=== PATIENT | female | born 1950 | race American Indian/Alaskan Native ===

== ENCOUNTER 2018-08-29 07:09 | Inpatient (IN) | payer MEDICARE ==
[2018-08-29] MEDS ORDERED: DUONEB *Not for PRN Use IH ONE ×2 (07:15→07:24)
[2018-08-29] MEDS ORDERED: NACL 0.9% 1000 ML 1,000 ML IV ONE (07:19)
--- NOTE | 2018-08-29 07:19 | Emergency Department Report ---
ED General Adult HPI - General Chief complaint: Dyspnea/Respdistress Stated complaint: MADONNA Time Seen by Provider: 08/29/18 07:15 Source: patient, EMS Mode of arrival: Stretcher Limitations: No Limitations - History of Present Illness Initial comments: 68-year-old female with history of hypercapnic respiratory failure, COPD, diabetes, tobacco dependency. She presents with prehospital CPAP in place. She has a limited ability to provide any history. As far as I can tell at this point her exacerbation started last night. She was given 2 albuterol treatments apices 10 mg) in route as well as magnesium and Solu-Medrol. She was placed on a prehospital CPAP device. She arrives with improved respiratory status but persistent wheezing. She points to her chest stating that she has had some chest difficulty. It does appear that her principle problem is her exacerbation of COPD. She initially states that she is not well inclined to be admitted to the hospital. Likely she has persistent tobacco use. She is oxygen dependent at home and uses home. 2018 she was admitted with the following discharge summary: 67 y/o AAF Whose primary care doctor is dr. Pollard. She had a history of 12 Years of COPD come on now oxygen dependence at all times. The patient noted that she had trouble filling the prescriptions for long-acting beta anais and inhaled steroid is given to her by her PCP come outside Insurance did not cover it. She was admitted for COPD exacerbation, she was medically treated with nebs, steroids, antibiotics, she improves. And she's being discharged on COPD maintenance medications that are on her formulary for her insurance.She was counseled on Tobacco cessation prior to discharge Past History Past Medical History: diabetes, GERD, hypertension, hyperlipidemia Diagnosis COPD exacerbation acute on chronic hypoxic respiratory failure Hypertension tobacco dependence and abuse type 2 diabetes GERD -: Gradual Location: chest Radiation: non-radiation (points to substernal area) Quality: other (cannot Describe) Consistency: intermittent Improves with: none Worsens with: none Associated Symptoms: denies other symptoms - Related Data Home Medications Medication Instructions Recorded Confirmed Last Taken Amlodipine Besylate [Norvasc] 10 mg PO QDAY 08/24/17 08/29/18 08/29/18 Famotidine [Pepcid] 20 mg PO BID 08/24/17 08/29/18 08/29/18 ALBUTEROL Inhaler(NF) [VENTOLIN 2 puff IH QID 08/29/18 08/29/18 08/29/18 Inhaler(NF)] ALBUTEROL NEB's [Proventil] 2.5 mg IH QID PRN 08/29/18 08/29/18 08/29/18 Ipratropium [Atrovent] 0.5 mg IH Q6HR 08/29/18 08/29/18 08/29/18 Irbesartan 150 mg PO DAILY 08/29/18 08/29/18 08/28/18 Potassium Chloride [Klor-Con M20] 20 meq PO 3XW 08/29/18 08/29/18 08/28/18 metFORMIN [Glucophage] 2 tab PO BID 08/29/18 08/29/18 08/28/18 Previous Rx's Medication Instructions Recorded Last Taken Type Furosemide [Lasix TAB] 40 mg PO QDAY #30 tablet 11/29/17 08/29/18 Rx Allergies Allergy/AdvReac Type Severity Reaction Status Date / Time No Known Allergies Allergy Unverified 10/29/14 10:06 ED Review of Systems ROS: Stated complaint: MADONNA Other details as noted in HPI Comment: Unobtainable due to pts medical conditions (limited history due to respiratory difficulty) ED Past Medical Hx - Past Medical History Previous Medical History?: Yes Hx Hypertension: Yes Hx Diabetes: Yes Hx COPD: Yes - Surgical History Past Surgical History?: Yes Additional Surgical History: hysterectomy - Social History Smoking Status: Never Smoker Substance Use Type: None - Medications Home Medications: Home Medications Medication Instructions Recorded Confirmed Last Taken Type Amlodipine Besylate [Norvasc] 10 mg PO QDAY 08/24/17 08/29/18 08/29/18 History Famotidine [Pepcid] 20 mg PO BID 08/24/17 08/29/18 08/29/18 History Furosemide [Lasix TAB] 40 mg PO QDAY #30 tablet 11/29/17 08/29/18 08/29/18 Rx ALBUTEROL Inhaler(NF) [VENTOLIN 2 puff IH QID 08/29/18 08/29/18 08/29/18 History Inhaler(NF)] ALBUTEROL NEB's [Proventil] 2.5 mg IH QID PRN 08/29/18 08/29/18 08/29/18 History Ipratropium [Atrovent] 0.5 mg IH Q6HR 08/29/18 08/29/18 08/29/18 History Irbesartan 150 mg PO DAILY 08/29/18 08/29/18 08/28/18 History Potassium Chloride [Klor-Con M20] 20 meq PO 3XW 08/29/18 08/29/18 08/28/18 History metFORMIN [Glucophage] 2 tab PO BID 08/29/18 08/29/18 08/28/18 History ED Physical Exam - General Limitations: Physical Limitation General appearance: alert, other (mild labored respirations) - Head Head exam: Present: atraumatic, normocephalic - Eye Eye exam: Present: normal appearance. Absent: scleral icterus - ENT ENT exam: Present: mucous membranes moist - Neck Neck exam: Present: normal inspection. Absent: tenderness, meningismus - Respiratory Respiratory exam: Present: wheezes, decreased breath sounds (distant breath sounds with wheezes present). Absent: respiratory distress, accessory muscle use - Cardiovascular Cardiovascular Exam: Present: regular rate, normal rhythm. Absent: systolic murmur, diastolic murmur, rubs, gallop - GI/Abdominal GI/Abdominal exam: Present: soft, normal bowel sounds. Absent: distended, tenderness, guarding, rebound, rigid - Extremities Exam Extremities exam: Present: normal inspection, full ROM, normal capillary refill. Absent: tenderness, pedal edema, calf tenderness - Back Exam Back exam: Present: normal inspection - Neurological Exam Neurological exam: Present: alert, oriented X3, CN II-XII intact. Absent: motor sensory deficit - Psychiatric Psychiatric exam: Present: normal affect, normal mood - Skin Skin exam: Present: warm, dry, intact, normal color. Absent: rash ED Course Vital Signs 08/29/18 08/29/18 08/29/18 07:10 07:38 08:15 Temperature 98.2 F Pulse Rate 103 H 90 Respiratory 22 22 19 Rate Blood Pressure 162/68 Blood Pressure 132/63 [Right] O2 Sat by Pulse 92 98 96 Oximetry 08/29/18 09:18 Temperature Pulse Rate 79 Respiratory 20 Rate Blood Pressure Blood Pressure 131/61 [Right] O2 Sat by Pulse 99 Oximetry - Reevaluation(s) Reevaluation #1: The patient is doing well on nebulized therapy with BiPAP. She states that she is not on a CPAP device at night. We'll see how she progresses and check an arterial blood gas. 08/29/18 07:39 Reevaluation #2: Respiratory status improved. BiPAP was not required. Blood gas showed slightly elevated CO2 and slightly low pH. The patient would be hypoxic without supplemental oxygen PO2 is in the 70s. I believe she will need nocturnal CPAP. She states she is fine without the BiPAP during her first neb. 08/29/18 10:02 ED Medical Decision Making - Lab Data Result diagrams: 08/29/18 07:15 08/29/18 07:15 Laboratory Results - last 24 hr 08/29/18 08/29/18 08/29/18 07:15 07:15 07:15 WBC 6.8 RBC 4.91 Hgb 12.4 Hct 38.0 MCV 77 L MCH 25 L MCHC 33 RDW 18.1 H Plt Count 211 Lymph % (Auto) 31.6 [place] % (Auto) 11.2 H Eos % (Auto) 6.2 H Baso % (Auto) 0.5 Lymph # 2.1 [place] # 0.8 Eos # 0.4 Baso # 0.0 Seg Neutrophils % 50.5 Seg Neutrophils # 3.4 PT 12.2 INR 0.86 L APTT 29.7 D-Dimer 171.29 POC ABG pH POC ABG pCO2 POC ABG pO2 POC ABG HCO3 POC ABG Total CO2 POC ABG O2 Sat POC ABG Base Excess FiO2 Sodium 141 Potassium 4.1 Chloride 100.8 Carbon Dioxide 24 Anion Gap 20 BUN 21 H Creatinine 0.7 Estimated GFR > 60 BUN/Creatinine Ratio 30 Glucose 125 H Calcium 9.4 Magnesium 2.90 H Total Bilirubin Direct Bilirubin Indirect Bilirubin AST ALT Alkaline Phosphatase Total Creatine Kinase CK-MB (CK-2) CK-MB (CK-2) Rel Index Troponin T NT-Pro-B Natriuret Pep Total Protein Albumin Albumin/Globulin Ratio Urine Color Urine Turbidity Urine pH Ur Specific [place] Urine Protein Urine Glucose (UA) Urine Ketones Urine Blood Urine Nitrite Urine Bilirubin Urine Urobilinogen Ur Leukocyte Esterase Urine WBC (Auto) Urine RBC (Auto) U Epithel Cells (Auto) Hyaline Casts Urine Opiates Screen Urine Methadone Screen Ur Barbiturates Screen Ur Phencyclidine Scrn Ur Amphetamines Screen U Benzodiazepines Scrn Urine Cocaine Screen U Marijuana (THC) Screen Drugs of Abuse Note 08/29/18 08/29/18 08/29/18 07:15 07:51 07:51 WBC RBC Hgb Hct MCV MCH MCHC RDW Plt Count Lymph % (Auto) [place] % (Auto) Eos % (Auto) Baso % (Auto) Lymph # [place] # Eos # Baso # Seg Neutrophils % Seg Neutrophils # PT INR APTT D-Dimer POC ABG pH POC ABG pCO2 POC ABG pO2 POC ABG HCO3 POC ABG Total CO2 POC ABG O2 Sat POC ABG Base Excess FiO2 Sodium Potassium Chloride Carbon Dioxide Anion Gap BUN Creatinine Estimated GFR BUN/Creatinine Ratio Glucose Calcium Magnesium Total Bilirubin 0.20 Direct Bilirubin < 0.2 Indirect Bilirubin 0.0 AST 14 ALT 7 Alkaline Phosphatase 61 Total Creatine Kinase 64 CK-MB (CK-2) 1.2 CK-MB (CK-2) Rel Index 1.8 Troponin T < 0.010 NT-Pro-B Natriuret Pep < 5 Total Protein 6.5 Albumin 4.4 Albumin/Globulin Ratio 2.1 Urine Color Colorless Urine Turbidity Clear Urine pH 5.0 Ur Specific [place] 1.008 Urine Protein <15 mg/dl Urine Glucose (UA) Neg Urine Ketones Neg Urine Blood Neg Urine Nitrite Neg Urine Bilirubin Neg Urine Urobilinogen < 2.0 Ur Leukocyte Esterase Neg Urine WBC (Auto) < 1.0 Urine RBC (Auto) < 1.0 U Epithel Cells (Auto) 1.0 Hyaline Casts 1 Urine Opiates Screen Presumptive negative Urine Methadone Screen Presumptive negative Ur Barbiturates Screen Presumptive negative Ur Phencyclidine Scrn Presumptive negative Ur Amphetamines Screen Presumptive negative U Benzodiazepines Scrn Presumptive negative Urine Cocaine Screen Presumptive negative U Marijuana (THC) Screen Presumptive negative Drugs of Abuse Note Disclamer 08/29/18 07:56 WBC RBC Hgb Hct MCV MCH MCHC RDW Plt Count Lymph % (Auto) [place] % (Auto) Eos % (Auto) Baso % (Auto) Lymph # [place] # Eos # Baso # Seg Neutrophils % Seg Neutrophils # PT INR APTT D-Dimer POC ABG pH 7.361 POC ABG pCO2 47.3 H POC ABG pO2 74 L POC ABG HCO3 26.8 POC ABG Total CO2 28 POC ABG O2 Sat 94 POC ABG Base Excess 1 FiO2 32 Sodium Potassium Chloride Carbon Dioxide Anion Gap BUN Creatinine Estimated GFR BUN/Creatinine Ratio Glucose Calcium Magnesium Total Bilirubin Direct Bilirubin Indirect Bilirubin AST ALT Alkaline Phosphatase Total Creatine Kinase CK-MB (CK-2) CK-MB (CK-2) Rel Index Troponin T NT-Pro-B Natriuret Pep Total Protein Albumin Albumin/Globulin Ratio Urine Color Urine Turbidity Urine pH Ur Specific [place] Urine Protein Urine Glucose (UA) Urine Ketones Urine Blood Urine Nitrite Urine Bilirubin Urine Urobilinogen Ur Leukocyte Esterase Urine WBC (Auto) Urine RBC (Auto) U Epithel Cells (Auto) Hyaline Casts Urine Opiates Screen Urine Methadone Screen Ur Barbiturates Screen Ur Phencyclidine Scrn Ur Amphetamines Screen U Benzodiazepines Scrn Urine Cocaine Screen U Marijuana (THC) Screen Drugs of Abuse Note - EKG Data -: EKG Interpreted by Wy EKG shows normal: sinus rhythm, axis, intervals, QRS complexes, ST-T waves Rate: normal - EKG Data Interpretation: no acute changes - Radiology Data Radiology results: report reviewed (consistent with COPD) Critical care attestation.: If time is entered above; I have spent that time in minutes in the direct care o f this critically ill patient, excluding procedure time. ED Disposition Clinical Impression: COPD exacerbation, Chronic hypercapnic respiratory failure Disposition: -09 OP ADMIT IP TO THIS HOSP Is pt being admited?: Yes Does the pt Need Aspirin: Yes Condition: Stable Instructions: Chronic Obstructive Pulmonary Disease (ED) Time of Disposition: 10:04
[2018-08-29 07:49] LABS: Basophils % (Auto) 0.5 % (0.0-1.8); Eosinophils # (Auto) 0.4 K/mm3 (0.0-0.4); Eosinophils % (Auto) 6.2 % (0.0-4.3); Hemoglobin 12.4 gm/dl (10.1-14.3); Lymphocytes # (Auto) 2.1 K/mm3 (1.2-5.4); Lymphocytes % (Auto) 31.6 % (13.4-35.0); Mean Corpuscular HGB Conc 33 % (30-34); Mean Corpuscular Volume 77 fl (79-97); Monocytes # (Auto) 0.8 K/mm3 (0.0-0.8); Monocytes % (Auto) 11.2 % (0.0-7.3); Platelet Count 211 K/mm3 (140-440); Red Blood Count 4.91 M/mm3 (3.65-5.03); Red Cell Distribution Width 18.1 % (13.2-15.2)
[2018-08-29 07:59] LABS: INR 0.86 (0.87-1.13); Partial Thromboplastin Time 29.7 Sec. (24.2-36.6)
--- NOTE | 2018-08-29 08:10 | XRay Report ---
AP CHEST: HISTORY: Dyspnea Compared to 05/12/18. Mild to moderate emphysematous changes are suspected in the upper lobes. The lungs are clear. No pleural effusion or pneumothorax. Normal heart and mediastinal structures. Normal bony thorax. IMPRESSION: Emphysematous changes. No acute process.
[2018-08-29 08:30] LABS: BUN/Creatinine Ratio 30; Blood Urea Nitrogen 21 mg/dL (7-17); Calcium 9.4 mg/dL (8.4-10.2); Creatine Kinase MB 1.2 ng/mL (0.0-4.0); Hemolysis Index 23
[2018-08-29 08:33] LABS: Bilirubin,Urine NEG (Negative); Blood,Urine NEG (Negative); Color,Urine Colorless (Yellow); Hyaline Casts,Urine 1 /LPF; Protein,Urine <15 mg/dL mg/dL (Negative); RBC,Urine < 1.0 /HPF (0.0-6.0); Urobilinogen,Urine < 2.0 mg/dL (<2.0); WBC,Urine < 1.0 /HPF (0.0-6.0)
[2018-08-29 08:34] LABS: Alanine Aminotransferase 7 units/L (7-56); Albumin 4.4 g/dL (3.9-5)
[2018-08-29 08:37] LABS: Bilirubin,Direct < 0.2 mg/dL (0-0.2)
[2018-08-29 08:42] LABS: Amphetamine Screen,Urine PRESUMPTIVE NEGATIVE; Benzodiazepines Screen,Urine PRESUMPTIVE NEGATIVE; Cannabinoid Screen,Urine PRESUMPTIVE NEGATIVE; Cocaine Screen,Urine PRESUMPTIVE NEGATIVE; Methadone Screen,Urine PRESUMPTIVE NEGATIVE; Opiate Screen,Urine PRESUMPTIVE NEGATIVE
[2018-08-29] MEDS ORDERED: BABY ASPIRIN PO ONE (10:05)
[2018-08-29] MEDS ORDERED: PROVENTIL IH PRN (11:24)
[2018-08-29] MEDS ORDERED: ZOFRAN IV PRN (11:25)
[2018-08-29] MEDS ORDERED: AMBIEN PO PRN (11:25)
--- NOTE | 2018-08-29 11:28 | History and Physical Report ---
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 EMS start her on CPAP. She was given 2 albuterol treatments in route as well as magnesium and Solu-Medrol. She arrives with improved respiratory status but persistent wheezing and SOB. PMH: as hpi, also bilateral cataracts PSH: hysterectomy SH: quit tob smoking >3 years ago, no etoh/illicit drugs, , son lives with her FH: hypertension, strokes, no DM or early heart attacks ROS: Constitutional: denies: fever ENT: denies: throat or neck pain Respiratory: +cough, shortness of breath Cardiovascular: + chest pain Endocrine: denies unexplained weight loss or gain Gastrointestinal: denies: abdominal pain, nausea, +loose stools but not diarrhea Genitourinary: denies: dysuria Rectal: denies no incontinence, no bleeding, no itching, no discharge Musculoskeletal: denies swelling, myaglia, muscle weakness Skin: denies: rash Neurological: denies: headache Hematological/Lymphatic: denies: easy bleeding or easy bruising Allergic/Immunologic: no urticaria, no allergic rhinitis, no anaphylaxis Psych: denies sadness or hopelessness, SI/HI Medications and Allergies Allergies Allergy/AdvReac Type Severity Reaction Status Date / Time No Known Allergies Allergy Unverified 10/29/14 10:06 Home Medications Medication Instructions Recorded Confirmed Last Taken Type Amlodipine Besylate [Norvasc] 10 mg PO QDAY 08/24/17 08/29/18 08/29/18 History Famotidine [Pepcid] 20 mg PO BID 08/24/17 08/29/18 08/29/18 History Furosemide [Lasix TAB] 40 mg PO QDAY #30 tablet 11/29/17 08/29/18 08/29/18 Rx ALBUTEROL Inhaler(NF) [VENTOLIN 2 puff IH QID 08/29/18 08/29/18 08/29/18 History Inhaler(NF)] ALBUTEROL NEB's [Proventil] 2.5 mg IH QID PRN 08/29/18 08/29/18 08/29/18 History Ipratropium [Atrovent] 0.5 mg IH Q6HR 08/29/18 08/29/18 08/29/18 History Irbesartan 150 mg PO DAILY 08/29/18 08/29/18 08/28/18 History Potassium Chloride [Klor-Con M20] 20 meq PO 3XW 08/29/18 08/29/18 08/28/18 History metFORMIN [Glucophage] 2 tab PO BID 08/29/18 08/29/18 08/28/18 History Active Meds: Active Medications Acetaminophen (Tylenol) 650 mg PO Q6H PRN PRN Reason: Non Cardiac Pain or Temp>100.5 Albuterol (Proventil) 2.5 mg IH Q4HRT PRN PRN Reason: Shortness Of Breath Albuterol/Ipratropium (Duoneb *Not For Prn Use*) 1 ampul IH QIDRT NANCY Amlodipine Besylate (Norvasc) 10 mg PO QDAY NANCY Famotidine (Pepcid) 20 mg PO BID NANCY Furosemide (Lasix) 40 mg PO QDAY NANCY Heparin Sodium (Porcine) (Heparin) 5,000 unit SUB-Q Q12HR [facility] Sodium Chloride (Nacl 0.9% 1000 Ml) 1,000 mls @ 125 mls/hr IV ONCE ONE Stop: 08/29/18 15:18 Last Admin: 08/29/18 07:55 Dose: 125 mls/hr Documented by: Azithromycin 500 mg/ Sodium (Chloride) 250 mls @ 250 mls/hr IV Q24HR [facility] Ceftriaxone Sodium (Rocephin/Ns 1 Gm/50 Ml) 1 gm in 50 mls @ 100 mls/hr IV Q24HR NANCY; Protocol Metformin HCl (Glucophage) mg PO BID [facility] Methylprednisolone Sodium Succinate (Solu-Medrol) 60 mg IV Q8HR [facility] Miscellaneous Medication (Irbesartan [Irbesartan]) 150 mg PO DAILY [facility] Ondansetron HCl (Zofran) 4 mg IV Q4H PRN PRN Reason: Nausea And Vomiting Potassium Chloride (K-Dur) 20 meq PO 3XW NANCY Zolpidem Tartrate (Ambien) 5 mg PO QHS PRN PRN Reason: Sleep Exam - Physical Exam Narrative exam: Gen: WDWN, NAD, Awake, Alert, Orientated x 3, on nasal canula HEENT: NCAT, EOMI, PERRL, OP Clear Neck: supple, no adenopathy, no thyromegaly, no JVD CVS/Heart: RRR, normal S1S2, pulses present bilaterally Chest/Lungs: diminished bs bilateral, Symmetrical chest expansion, reduced air entry bilaterally, reproducible substernal chest wall tenderness GI/Abdomen: soft, NTND, good bowel sounds, no guarding or rebound /Bladder: no suprapubic tenderness, no CVA or paraspinal tenderness Extermity/Skin: no c/c/e, no obvious rash MSK: FROM x 4 Neuro: CN 2-12 grossly intact, no new focal deficits Psych: calm - Constitutional Vitals: Temp Pulse Resp BP Pulse Ox 97.5 F L 84 20 145/64 97 08/29/18 11:16 08/29/18 11:16 08/29/18 11:16 08/29/18 11:16 08/29/18 11:16 Results - Labs CBC & Chem 7: 08/29/18 07:15 08/29/18 07:15 Labs: Abnormal lab results 08/29/18 08/29/18 08/29/18 Range/Units 07:15 07:15 07:15 MCV 77 L (79-97) fl MCH 25 L (28-32) pg RDW 18.1 H (13.2-15.2) % [place] % (Auto) 11.2 H (0.0-7.3) % Eos % (Auto) 6.2 H (0.0-4.3) % INR 0.86 L (0.87-1.13) POC ABG pCO2 (35-45) POC ABG pO2 (80-105) BUN 21 H (7-17) mg/dL Glucose 125 H (65-100) mg/dL Magnesium 2.90 H (1.7-2.3) mg/dL 08/29/18 Range/Units 07:56 MCV (79-97) fl MCH (28-32) pg RDW (13.2-15.2) % [place] % (Auto) (0.0-7.3) % Eos % (Auto) (0.0-4.3) % INR (0.87-1.13) POC ABG pCO2 47.3 H (35-45) POC ABG pO2 74 L (80-105) BUN (7-17) mg/dL Glucose (65-100) mg/dL Magnesium (1.7-2.3) mg/dL Assessment and Plan Patient is a 68 yo woman with a history of chronic combined respiratory failure due to end-stage COPD on 3 liter home O2, type 2 DM, prior tobacco dependency and GERD who presents to [facility] ED with severe progressive worsening intermittent SOB that started yesterday without any aggravating or relieving factors associated with substernal intermittent moderate squeezing nonradiating chest pains that started at 8pm last night, lasting more than 1 hour with any aggravating or relieving factors. EMS start her on CPAP. She was given 2 albuterol treatments in route as well as magnesium and Solu-Medrol. She arrives with improved respiratory status but persistent wheezing and SOB. Acute on chronic combined respiratory failure, CPAP weaned off: continue O2 support, consult Pulmonology AE COPD causing the above: treat with abx, neb around the clock and solumedrol Chest pains: repeat troponin, stress test once breathing improves Hypertension: low salt diet, continue norvasc tobacco dependence history: encouragement given Type 2 diabetes mellitus: ssi, accuchecks and metformin GERD: continue Pepcid DVT prophylaxis: sq heparin Home reconciliation done. Disposition: continue inpatient care, treat the COPD and consider stress test prior to discharge once breathing improves
[2018-08-29] MEDS ORDERED: DUONEB *Not for PRN Use IH SCH (12:00)
[2018-08-29] MEDS ORDERED: ZITHROMAX 500 MG in NACL 0.9% 250ML 250 ML IV SCH (12:30)
[2018-08-29] MEDS: ROCEPHIN/NS 1 GM/50 ML 1 GM/50 ML BAG IV SCH (12:38)
--- NOTE | 2018-08-29 15:05 | Consultation ---
History of Present Illness Consult date: 08/29/18 Reason for consult: dyspnea, cough, chest pain History of present illness: PULMONARY AND CRITICAL CARE CONSULTATION DR. FORD THANK YOU FOR ASKING US TO PARTICIPATE IN THE CARE OF THIS PATIENT. Patient is a 68 yo woman with a history of chronic combined respiratory failure due to end-stage COPD on 3 liter home O2, type 2 DM, prior tobacco dependency and GERD who presents to [facility] ED with severe progressive worsening intermittent SOB that started yesterday without any aggravating or relieving factors associated with substernal intermittent moderate squeezing nonradiating chest pains that started at 8pm last night, lasting more than 1 hour with any aggravating or relieving factors. EMS start her on CPAP. She was given 2 albuterol treatments in route as well as magnesium and Solu-Medrol. She arrives with improved respiratory status but persistent wheezing and SOB. Patient presently resting in bed on 3 litres O2.O2 saturation 97% Chest xray reported emphysematous changes. No acute findings. Patient started on I/V solumedrol, Albuterol/atrovent aerosol treatments, and antibiotics. Past History Past Medical History: diabetes, GERD, hypertension, hyperlipidemia Social history: denies: smoking, alcohol abuse, prescription drug abuse (Former smoker.) Medications and Allergies Allergies Allergy/AdvReac Type Severity Reaction Status Date / Time No Known Allergies Allergy Unverified 10/29/14 10:06 Home Medications Medication Instructions Recorded Confirmed Last Taken Type Amlodipine Besylate [Norvasc] 10 mg PO QDAY 08/24/17 08/29/18 08/29/18 History Famotidine [Pepcid] 20 mg PO BID 08/24/17 08/29/18 08/29/18 History Furosemide [Lasix TAB] 40 mg PO QDAY #30 tablet 11/29/17 08/29/18 08/29/18 Rx ALBUTEROL Inhaler(NF) [VENTOLIN 2 puff IH QID 08/29/18 08/29/18 08/29/18 History Inhaler(NF)] ALBUTEROL NEB's [Proventil] 2.5 mg IH QID PRN 08/29/18 08/29/18 08/29/18 History Ipratropium [Atrovent] 0.5 mg IH Q6HR 08/29/18 08/29/18 08/29/18 History Irbesartan 150 mg PO DAILY 08/29/18 08/29/18 08/28/18 History Potassium Chloride [Klor-Con M20] 20 meq PO 3XW 08/29/18 08/29/18 08/28/18 History metFORMIN [Glucophage] 2 tab PO BID 08/29/18 08/29/18 08/28/18 History Active Meds: Active Medications Acetaminophen (Tylenol) 650 mg PO Q6H PRN PRN Reason: Non Cardiac Pain or Temp>100.5 Albuterol (Proventil) 2.5 mg IH Q4HRT PRN PRN Reason: Shortness Of Breath Albuterol/Ipratropium (Duoneb *Not For Prn Use*) 1 ampul IH TIDRT [facility] Amlodipine Besylate (Norvasc) 10 mg PO QDAY [facility] Arformoterol Tartrate (Brovana Nebu) 15 mcg IH Q12HRT [facility] Famotidine (Pepcid) 20 mg PO BID [facility] Furosemide (Lasix) 40 mg PO DAILY@0600 [facility] Heparin Sodium (Porcine) (Heparin) 5,000 unit SUB-Q Q12HR [facility] Sodium Chloride (Nacl 0.9% 1000 Ml) 1,000 mls @ 125 mls/hr IV ONCE ONE Stop: 08/29/18 15:18 Last Admin: 08/29/18 07:55 Dose: 125 mls/hr Documented by: Azithromycin 500 mg/ Sodium (Chloride) 250 mls @ 250 mls/hr IV Q24HR [facility] Ceftriaxone Sodium (Rocephin/Ns 1 Gm/50 Ml) 1 gm in 50 mls @ 100 mls/hr IV Q24HR [facility]; Protocol Last Admin: 08/29/18 12:38 Dose: 100 mls/hr Documented by: Losartan Potassium (Cozaar) 50 mg PO QDAY [facility] Metformin HCl (Glucophage) 1,000 mg PO BID [facility] Methylprednisolone Sodium Succinate (Solu-Medrol) 60 mg IV Q8HR [facility] Ondansetron HCl (Zofran) 4 mg IV Q4H PRN PRN Reason: Nausea And Vomiting Potassium Chloride (K-Dur) 20 meq PO MoThSa [facility] Zolpidem Tartrate (Ambien) 5 mg PO QHS PRN PRN Reason: Sleep Review of Systems All systems: negative Physical Examination Vital signs: Vital Signs Temp Pulse Resp BP Pulse Ox 98.2 F 103 H 22 162/68 92 08/29/18 07:10 08/29/18 07:10 08/29/18 07:10 08/29/18 07:10 08/29/18 07:10 General appearance: alert, appears uncomfortable Eyes: non-icteric ENT: oropharynx moist Neck: supple, no JVD Ascultation: Bilateral: wheezes Cardiovascular: regular rate and rhythm Gastrointestinal: normoactive bowel sounds, soft, non-tender Integumentary: normal Extremities: no cyanosis, no edema Musculoskeletal: no deformities Gait: poor gait normal mental status, non-focal exam, pupils equal and round, CN II-XII normal mood appropriate Results - Laboratory Findings CBC and BMP: 08/29/18 07:15 08/29/18 07:15 ABG POC ABG pH 7.361 (7.35-7.45) 08/29/18 07:56 POC ABG pCO2 47.3 (35-45) H 08/29/18 07:56 POC ABG pO2 74 (80-105) L 08/29/18 07:56 POC ABG HCO3 26.8 (22-26 mml/L) 08/29/18 07:56 POC ABG Total CO2 28 (23-27mmol/L) 08/29/18 07:56 POC ABG O2 Sat 94 08/29/18 07:56 PT/INR, D-dimer PT 12.2 Sec. (12.2-14.9) 08/29/18 07:15 INR 0.86 (0.87-1.13) L 08/29/18 07:15 171.29 ng/mlDDU (0-234) 08/29/18 07:15 Abnormal lab findings: Abnormal Labs 08/29/18 08/29/18 08/29/18 07:15 07:15 07:15 MCV 77 L MCH 25 L RDW 18.1 H [place] % (Auto) 11.2 H Eos % (Auto) 6.2 H INR 0.86 L POC ABG pCO2 POC ABG pO2 BUN 21 H Glucose 125 H Magnesium 2.90 H 08/29/18 07:56 MCV MCH RDW [place] % (Auto) Eos % (Auto) INR POC ABG pCO2 47.3 H POC ABG pO2 74 L BUN Glucose Magnesium - Diagnostic Findings Chest x-ray: report reviewed (EMPHYSEMATOUS CHANGES. NO ACUTE PROCESS.), image reviewed Assessment and Plan Patient is a 68 yo woman with a history of chronic combined respiratory failure due to end-stage COPD on 3 liter home O2, type 2 DM, prior tobacco dependency and GERD who presents to [facility] ED with severe progressive worsening intermittent SOB that started yesterday without any aggravating or relieving factors as sociated with substernal intermittent moderate squeezing nonradiating chest pains that started at 8pm last night, lasting more than 1 hour with any aggravating or relieving factors. EMS start her on CPAP. She was given 2 albuterol treatments in route as well as magnesium and Solu-Medrol. She arrives with improved respiratory status but persistent wheezing and SOB. Patient presently resting in bed on 3 litres O2.O2 saturation 97% Chest xray reported emphysematous changes. No acute findings. Patient started on I/V solumedrol, Albuterol/atrovent aerosol treatments, and antibiotics. - Patient Problems (1) COPD exacerbation Current Visit: Yes Status: Acute Plan to address problem: O2 3 litres via nasal canula. Albuterol/atrovent aerosol treatments. Continue I/V solumedrol. Continue ceftrioxone and zithromax. Continue S/C Heparin. Continue PEPCID. (2) Acute and chronic respiratory failure with hypoxia Current Visit: No Status: Acute Plan to address problem: O2 3 litres via nasal canula. Albuterol/atrovent aerosol treatments. Continue I/V solumedrol. Continue ceftrioxone and zithromax. Continue S/C Heparin. Continue PEPCID. (3) Acute bronchitis Current Visit: No Status: Acute Plan to address problem: Patient is on ceftrioxone and zithromax. (4) GERD (gastroesophageal reflux disease) Current Visit: No Status: Chronic Qualifiers: Esophagitis presence: without esophagitis Qualified Code(s): K21.9 - Gastro-esophageal reflux disease without esophagitis Plan to address problem: Patient is on PEPCID. (5) HTN (hypertension) Current Visit: No Status: Chronic Qualifiers: Hypertension type: essential hypertension Qualified Code(s): I10 - Essential (primary) hypertension Plan to address problem: Management as per primary care. (6) T2DM (type 2 diabetes mellitus) Current Visit: No Status: Chronic Qualifiers: Diabetes mellitus manager terminal insulin use: without manager terminal use Plan to address problem: Management as per primary care.
[2018-08-29] MEDS: SOLU-Medrol IV SCH ×2 (16:24→21:50)
[2018-08-29] MEDS: NORVASC PO SCH (16:25)
[2018-08-29] MEDS: DUONEB *Not for PRN Use IH SCH (20:35)
[2018-08-29] MEDS: BROVANA NEBU IH SCH (20:35)
[2018-08-29] MEDS: PEPCID PO SCH (21:50)
[2018-08-29] MEDS: ZITHROMAX PO SCH (21:50)
[2018-08-29] MEDS: GLUCOPHAGE PO SCH (21:50)
[2018-08-30] MEDS: TYLENOL PO PRN ×2 (01:52→19:32)
[2018-08-30] MEDS: SOLU-Medrol IV SCH ×3 (05:17→21:21)
[2018-08-30] MEDS: LASIX PO SCH (05:17)
[2018-08-30 06:01] LABS: Hematocrit 36.7 % (30.3-42.9); Hemoglobin 11.8 gm/dl (10.1-14.3); Mean Corpuscular HGB Conc 32 % (30-34); Mean Corpuscular Volume 78 fl (79-97); Platelet Count 211 K/mm3 (140-440); Red Blood Count 4.73 M/mm3 (3.65-5.03); Red Cell Distribution Width 18.1 % (13.2-15.2)
[2018-08-30 06:26] LABS: BUN/Creatinine Ratio 28; Blood Urea Nitrogen 17 mg/dL (7-17); Calcium 8.9 mg/dL (8.4-10.2); Hemolysis Index 22
--- NOTE | 2018-08-30 07:35 | Progress Note ---
Assessment and Plan Assessment and plan: Patient is a 68 yo woman with a history of chronic combined respiratory failure due to end-stage COPD on 3 liter home O2, type 2 DM, prior tobacco dependency and GERD who presents to [facility] ED with severe progressive worsening intermittent SOB that started yesterday without any aggravating or relieving factors associated with substernal intermittent moderate squeezing nonradiating chest pains that started at 8pm last night, lasting more than 1 hour with any aggravating or relieving factors. EMS start her on CPAP. She was given 2 albuterol treatments in route as well as magnesium and Solu-Medrol. She arrives with improved respiratory status but persistent wheezing and SOB. Lives with son PCP: CXR: Emphysematous changes. No acute process. Acute on chronic combined respiratory failure, CPAP weaned off: continue O2 support, consult Pulmonology AE COPD causing the above: treat with abx, neb around the clock and solumedrol and taper Acute Bronchitis: Continue abx, will descalate as patients improve Chest pains: repeat troponin, stress test once breathing improves Hypertension: low salt diet, continue norvasc tobacco dependence history: encouragement given Type 2 diabetes mellitus: ssi, accuchecks and metformin GERD: continue Pepcid Low TSH: Check Free T4 DVT prophylaxis: sq heparin Home reconciliation done. Disposition: continue inpatient care, treat the COPD and consider stress test prior to discharge once breathing improves History Interval history: Patient seen and examined, reports improvement in symptoms but not yet at baseline. Hospitalist Physical - Physical exam Narrative exam: Gen: WDWN, NAD, Awake, Alert, Orientated x 3, on nasal cannula, sitting at the bedside HEENT: NCAT, EOMI, PERRL, OP Clear Neck: supple, no adenopathy, no thyromegaly, no JVD CVS/Heart: RRR, normal S1S2, pulses present bilaterally Chest/Lungs: diminished bs bilateral, Symmetrical chest expansion, reduced air entry bilaterally, reproducible substernal chest wall tenderness GI/Abdomen: soft, NTND, good bowel sounds, no guarding or rebound /Bladder: no suprapubic tenderness, no CVA or paraspinal tenderness Extermity/Skin: no c/c/e, no obvious rash MSK: FROM x 4 Neuro: CN 2-12 grossly intact, no new focal deficits Psych: calm - Constitutional Vitals: Temp Pulse Resp BP Pulse Ox 98.3 F 89 20 140/67 96 08/30/18 02:03 08/30/18 06:04 08/30/18 02:03 08/30/18 02:03 08/30/18 02:03 Results - Labs CBC & Chem 7: 08/30/18 05:17 08/30/18 05:17 Labs: Laboratory Last Values WBC 10.8 K/mm3 (4.5-11.0) 08/30/18 05:17 RBC 4.73 M/mm3 (3.65-5.03) 08/30/18 05:17 Hgb 11.8 gm/dl (10.1-14.3) 08/30/18 05:17 Hct 36.7 % (30.3-42.9) 08/30/18 05:17 MCV 78 fl (79-97) L 08/30/18 05:17 MCH 25 pg (28-32) L 08/30/18 05:17 MCHC 32 % (30-34) 08/30/18 05:17 RDW 18.1 % (13.2-15.2) H 08/30/18 05:17 Plt Count 211 K/mm3 (140-440) 08/30/18 05:17 Lymph % (Auto) 31.6 % (13.4-35.0) 08/29/18 07:15 [place] % (Auto) 11.2 % (0.0-7.3) H 08/29/18 07:15 Eos % (Auto) 6.2 % (0.0-4.3) H 08/29/18 07:15 Baso % (Auto) 0.5 % (0.0-1.8) 08/29/18 07:15 Lymph # 2.1 K/mm3 (1.2-5.4) 08/29/18 07:15 [place] # 0.8 K/mm3 (0.0-0.8) 08/29/18 07:15 Eos # 0.4 K/mm3 (0.0-0.4) 08/29/18 07:15 Baso # 0.0 K/mm3 (0.0-0.1) 08/29/18 07:15 Seg Neutrophils % 50.5 % (40.0-70.0) 08/29/18 07:15 Seg Neutrophils # 3.4 K/mm3 (1.8-7.7) 08/29/18 07:15 PT 12.2 Sec. (12.2-14.9) 08/29/18 07:15 INR 0.86 (0.87-1.13) L 08/29/18 07:15 APTT 29.7 Sec. (24.2-36.6) 08/29/18 07:15 171.29 ng/mlDDU (0-234) 08/29/18 07:15 POC ABG pH 7.361 (7.35-7.45) 08/29/18 07:56 POC ABG pCO2 47.3 (35-45) H 08/29/18 07:56 POC ABG pO2 74 (80-105) L 08/29/18 07:56 POC ABG HCO3 26.8 (22-26 mml/L) 08/29/18 07:56 POC ABG Total CO2 28 (23-27mmol/L) 08/29/18 07:56 POC ABG O2 Sat 94 08/29/18 07:56 POC ABG Base Excess 1 ((-2) - (+3)mmol/L) 08/29/18 07:56 32 % 08/29/18 07:56 Sodium 141 mmol/L (137-145) 08/30/18 05:17 Potassium 4.7 mmol/L (3.6-5.0) 08/30/18 05:17 Chloride 104.3 mmol/L (98-107) 08/30/18 05:17 Carbon Dioxide 24 mmol/L (22-30) 08/30/18 05:17 17 mmol/L 08/30/18 05:17 BUN 17 mg/dL (7-17) 08/30/18 05:17 0.6 mg/dL (0.7-1.2) L 08/30/18 05:17 Estimated GFR > 60 ml/min 08/30/18 05:17 28 % 08/30/18 05:17 Glucose 132 mg/dL (65-100) H 08/30/18 05:17 POC Glucose 198 (70-105) H 08/29/18 23:50 Calcium 8.9 mg/dL (8.4-10.2) 08/30/18 05:17 Magnesium 2.90 mg/dL (1.7-2.3) H 08/29/18 07:15 0.20 mg/dL (0.1-1.2) 08/29/18 07:15 < 0.2 mg/dL (0-0.2) 08/29/18 07:15 0.0 mg/dL 08/29/18 07:15 AST 14 units/L (5-40) 08/29/18 07:15 ALT 7 units/L (7-56) 08/29/18 07:15 61 units/L (35-129) 08/29/18 07:15 64 units/L (30-135) 08/29/18 07:15 CK-MB (CK-2) 1.2 ng/mL (0.0-4.0) 08/29/18 07:15 CK-MB (CK-2) Rel Index 1.8 (0-4) 08/29/18 07:15 < 0.010 ng/mL (0.00-0.029) 08/29/18 18:40 NT-Pro-B Natriuret Pep < 5 pg/mL (0-900) 08/29/18 07:15 6.5 g/dL (6.3-8.2) 08/29/18 07:15 4.4 g/dL (3.9-5) 08/29/18 07:15 2.1 % 08/29/18 07:15 TSH 0.171 mlU/mL (0.270-4.200) L 08/30/18 05:17 Colorless (Yellow) 08/29/18 07:51 Clear (Clear) 08/29/18 07:51 5.0 (5.0-7.0) 08/29/18 07:51 Ur Specific [place] 1.008 (1.003-1.030) 08/29/18 07:51 <15 mg/dl mg/dL (Negative) 08/29/18 07:51 Neg mg/dL (Negative) 08/29/18 07:51 Neg mg/dL (Negative) 08/29/18 07:51 Neg (Negative) 08/29/18 07:51 Neg (Negative) 08/29/18 07:51 Neg (Negative) 08/29/18 07:51 < 2.0 mg/dL (<2.0) 08/29/18 07:51 Ur Leukocyte Esterase Neg (Negative) 08/29/18 07:51 < 1.0 /HPF (0.0-6.0) 08/29/18 07:51 < 1.0 /HPF (0.0-6.0) 08/29/18 07:51 U Epithel Cells (Auto) 1.0 /HPF (0-13.0) 08/29/18 07:51 Hyaline Casts 1 /LPF 08/29/18 07:51 Presumptive negative 08/29/18 07:51 Presumptive negative 08/29/18 07:51 Ur Barbiturates Screen Presumptive negative 08/29/18 07:51 Ur Phencyclidine Scrn Presumptive negative 08/29/18 07:51 Ur Amphetamines Screen Presumptive negative 08/29/18 07:51 U Benzodiazepines Scrn Presumptive negative 08/29/18 07:51 Presumptive negative 08/29/18 07:51 U Marijuana (THC) Screen Presumptive negative 08/29/18 07:51 Disclamer 08/29/18 07:51 Active Medications - Current Medications Current Medications: Generic Name Dose Route Start Last Admin Trade Name Freq PRN Reason Stop Dose Admin Acetaminophen 650 mg 08/29/18 11:25 08/30/18 01:52 Tylenol PO 650 mg Q6H PRN Administration Non Cardiac Pain or Temp>100.5 Albuterol 2.5 mg 08/29/18 11:24 Proventil IH Q4HRT PRN Shortness Of Breath Albuterol/Ipratropium 1 ampul 08/29/18 20:00 08/29/18 20:35 Duoneb *Not For Prn Use* IH 1 ampul TIDRT NANCY Administration Amlodipine Besylate 10 mg 08/29/18 12:00 08/29/18 16:25 Norvasc PO 10 mg QDAY NANCY Administration Arformoterol Tartrate 15 mcg 08/29/18 20:00 08/29/18 20:35 Brovana Nebu IH 15 mcg Q12HRT [facility]ANCY Administration Azithromycin 500 mg 08/29/18 21:00 08/29/18 21:50 Zithromax PO 500 mg QDAY [facility]ANCY Administration Famotidine 20 mg 08/29/18 22:00 08/29/18 21:50 Pepcid PO 20 mg BID NANCY Administration Furosemide 40 mg 08/30/18 06:00 08/30/18 05:17 Lasix PO 40 mg DAILY@0600 [facility] Administration Heparin Sodium (Porcine) 5,000 unit 08/30/18 12:30 Heparin SUB-Q Q12HR [facility] Ceftriaxone Sodium 1 gm in 50 mls @ 100 mls/hr 08/29/18 12:00 08/29/18 12:38 Rocephin/Ns 1 Gm/50 Ml IV 100 mls/hr Q24HR [facility] Administration Protocol Losartan Potassium 50 mg 08/30/18 10:00 Cozaar PO QDAY [facility] Metformin HCl 1,000 mg 08/29/18 22:00 08/29/18 21:50 Glucophage PO 1,000 mg BID [facility] Administration Methylprednisolone Sodium Succinate 60 mg 08/29/18 14:00 08/30/18 05:17 Solu-Medrol IV 60 mg Q8HR [facility] Administration Ondansetron HCl 4 mg 08/29/18 11:25 Zofran IV Q4H PRN Nausea And Vomiting Potassium Chloride 20 meq 09/01/18 10:00 K-Dur PO MoThSa [facility] Zolpidem Tartrate 5 mg 08/29/18 11:25 Ambien PO QHS PRN Sleep
[2018-08-30] MEDS: BROVANA NEBU IH SCH ×2 (07:56→19:52)
[2018-08-30] MEDS: DUONEB *Not for PRN Use IH SCH ×3 (07:56→19:53)
[2018-08-30] MEDS: COZAAR PO SCH (09:16)
[2018-08-30] MEDS: PEPCID PO SCH ×2 (09:16→21:21)
[2018-08-30] MEDS: GLUCOPHAGE PO SCH ×2 (09:16→21:21)
[2018-08-30] MEDS: ZITHROMAX PO SCH (09:17)
[2018-08-30] MEDS: NORVASC PO SCH (09:17)
[2018-08-30] MEDS: ROCEPHIN/NS 1 GM/50 ML 1 GM/50 ML BAG IV SCH (09:18)
[2018-08-30] MEDS ORDERED: IRBESARTAN 150 MG PO SCH (10:00)
[2018-08-30] MEDS: HEPARIN SUB-Q SCH ×2 (13:07→21:21)
--- NOTE | 2018-08-30 13:24 | Progress Note ---
Assessment and Plan Patient is a 68 yo woman with a history of chronic combined respiratory failure due to end-stage COPD on 3 liter home O2, type 2 DM, prior tobacco dependency and GERD who presents to [facility] ED with severe progressive worsening intermittent SOB that started yesterday without any aggravating or relieving factors associated with substernal intermittent moderate squeezing nonradiating chest pains that started at 8pm last night, lasting more than 1 hour with any aggravating or relieving factors. EMS start her on CPAP. She was given 2 albute rol treatments in route as well as magnesium and Solu-Medrol. She arrives with improved respiratory status but persistent wheezing and SOB. Patient presently resting in bed on 3 litres O2.O2 saturation 97% Chest xray reported emphysematous changes. No acute findings. Patient started on I/V solumedrol, Albuterol/atrovent aerosol treatments, and antibiotics. 08/30/18 Patient sitting up in chair. Says breathing better to day. Resting on 4 litres O2. O2 saturation 95%. - Patient Problems (1) COPD exacerbation Current Visit: Yes Status: Acute Plan to address problem: O2 4 litres via nasal canula. Albuterol/atrovent aerosol treatments. Continue I/V solumedrol. Continue ceftrioxone and zithromax. Continue S/C Heparin. Continue PEPCID. (2) Acute and chronic respiratory failure with hypoxia Current Visit: No Status: Acute Plan to address problem: O2 4 litres via nasal canula. Albuterol/atrovent aerosol treatments. Continue I/V solumedrol. Continue ceftrioxone and zithromax. Continue S/C Heparin. Continue PEPCID. (3) Acute bronchitis Current Visit: No Status: Acute Plan to address problem: Patient is on ceftrioxone and zithromax. (4) GERD (gastroesophageal reflux disease) Current Visit: No Status: Chronic Qualifiers: Esophagitis presence: without esophagitis Qualified Code(s): K21.9 - Gastro-esophageal reflux disease without esophagitis Plan to address problem: Patient is on PEPCID. (5) HTN (hypertension) Current Visit: No Status: Chronic Qualifiers: Hypertension type: essential hypertension Qualified Code(s): I10 - Essential (primary) hypertension Plan to address problem: Management as per primary care. (6) T2DM (type 2 diabetes mellitus) Current Visit: No Status: Chronic Qualifiers: Diabetes mellitus terminal clerk insulin use: without care home use Plan to address problem: Management as per primary care. Subjective Date of service: 08/30/18 Interval history: Patient sitting up in chair. Says breathing better to day. Resting on 4 litres O2. O2 saturation 95%. Objective Vital Signs - 12hr 08/30/18 08/30/18 08/30/18 02:03 06:04 07:06 Temperature 98.3 F 98.0 F Pulse Rate 99 H 89 81 Pulse Rate [ Posterior Bilateral Throughout] Pulse Rate [ Right Radial] Respiratory 20 18 Rate Respiratory Rate [Posterior Bilateral Throughout] Blood Pressure 140/67 116/57 O2 Sat by Pulse 96 96 Oximetry 08/30/18 08/30/18 08/30/18 07:56 07:58 09:16 Temperature Pulse Rate 94 H Pulse Rate [ 75 Posterior Bilateral Throughout] Pulse Rate [ Right Radial] Respiratory Rate Respiratory 18 Rate [Posterior Bilateral Throughout] Blood Pressure 130/61 O2 Sat by Pulse 97 Oximetry 08/30/18 08/30/18 08/30/18 11:00 13:04 13:16 Temperature Pulse Rate Pulse Rate [ 104 H 105 H Posterior Bilateral Throughout] Pulse Rate [ 94 H Right Radial] Respiratory 18 Rate Respiratory 18 16 Rate [Posterior Bilateral Throughout] Blood Pressure O2 Sat by Pulse 95 Oximetry Constitutional: no acute distress, alert Eyes: non-icteric ENT: oropharynx moist Neck: supple, no JVD Ascultation: Bilateral: wheezes Cardiovascular: regular rate and rhythm Gastrointestinal: normoactive bowel sounds, soft, non-tender Integumentary: normal Extremities: no cyanosis, no edema Neurologic: normal mental status, non-focal exam, pupils equal and round, CN II- XII normal Psychiatric: mood appropriate CBC and BMP: 08/30/18 05:17 08/30/18 05:17 ABG, PT/INR, D-dimer: ABG POC ABG pH 7.361 (7.35-7.45) 08/29/18 07:56 POC ABG pCO2 47.3 (35-45) H 08/29/18 07:56 POC ABG pO2 74 (80-105) L 08/29/18 07:56 POC ABG HCO3 26.8 (22-26 mml/L) 08/29/18 07:56 POC ABG Total CO2 28 (23-27mmol/L) 08/29/18 07:56 POC ABG O2 Sat 94 08/29/18 07:56 PT/INR, D-dimer PT 12.2 Sec. (12.2-14.9) 08/29/18 07:15 INR 0.86 (0.87-1.13) L 08/29/18 07:15 171.29 ng/mlDDU (0-234) 08/29/18 07:15 Abnormal lab findings: Abnormal Labs 08/29/18 08/29/18 08/29/18 07:15 07:15 07:15 MCV 77 L MCH 25 L RDW 18.1 H [place] % (Auto) 11.2 H Eos % (Auto) 6.2 H INR 0.86 L POC ABG pCO2 POC ABG pO2 BUN 21 H Creatinine Glucose 125 H POC Glucose Magnesium 2.90 H TSH 08/29/18 08/29/18 08/29/18 07:56 17:46 23:50 MCV MCH RDW [place] % (Auto) Eos % (Auto) INR POC ABG pCO2 47.3 H POC ABG pO2 74 L BUN Creatinine Glucose POC Glucose 186 H 198 H Magnesium TSH 08/30/18 08/30/18 08/30/18 05:17 05:17 05:17 MCV 78 L MCH 25 L RDW 18.1 H [place] % (Auto) Eos % (Auto) INR POC ABG pCO2 POC ABG pO2 BUN Creatinine 0.6 L Glucose 132 H POC Glucose Magnesium TSH 0.171 L 08/30/18 08/30/18 07:10 11:41 MCV MCH RDW [place] % (Auto) Eos % (Auto) INR POC ABG pCO2 POC ABG pO2 BUN Creatinine Glucose POC Glucose 139 H 127 H Magnesium TSH
[2018-08-31] MEDS: TYLENOL PO PRN ×2 (04:29→12:26)
[2018-08-31] MEDS: LASIX PO SCH (05:42)
[2018-08-31] MEDS: SOLU-Medrol IV SCH ×2 (05:42→13:33)
[2018-08-31] MEDS: COZAAR PO SCH (09:18)
[2018-08-31] MEDS: PEPCID PO SCH (09:19)
[2018-08-31] MEDS: GLUCOPHAGE PO SCH (09:20)
[2018-08-31] MEDS: NORVASC PO SCH (09:20)
[2018-08-31] MEDS: HEPARIN SUB-Q SCH (09:21)
[2018-08-31] MEDS: ROCEPHIN/NS 1 GM/50 ML 1 GM/50 ML BAG IV SCH (09:21)
[2018-08-31] MEDS: ZITHROMAX PO SCH (09:25)
[2018-08-31] MEDS: DUONEB *Not for PRN Use IH SCH ×3 (09:29→21:58)
[2018-08-31] MEDS: BROVANA NEBU IH SCH ×2 (09:29→21:59)
--- NOTE | 2018-08-31 15:40 | Progress Note ---
Assessment and Plan - Patient Problems (1) Acute and chronic respiratory failure with hypoxia Current Visit: No Status: Acute Plan to address problem: Cont Duoneb Tx IV Solumedrol and IV Abx (2) COPD exacerbation Current Visit: Yes Status: Acute Plan to address problem: Cont Neb Tx Solumedrol and Abx (3) HTN (hypertension) Current Visit: Yes Status: Chronic Qualifiers: Hypertension type: essential hypertension Qualified Code(s): I10 - Essential (primary) hypertension Plan to address problem: Cont antihypertensives (4) T2DM (type 2 diabetes mellitus) Current Visit: No Status: Chronic Qualifiers: Diabetes mellitus truck terminal manager insulin use: without truck terminal manager use Plan to address problem: Cont coverage (5) Chest pain Current Visit: Yes Status: Acute Qualifiers: Chest pain type: unspecified Qualified Code(s): R07.9 - Chest pain, unspecified Plan to address problem: Lexiscan in AM (6) DVT prophylaxis Current Visit: No Status: Acute Plan to address problem: Cont Lovenox and GI prophylaxis Subjective Date of service: 08/31/18 Principal diagnosis: Acute resp failure and copd exacerbation Interval history: Some improvement Resp distress continues Objective - Constitutional Vitals: Vital Signs - 12hr 08/31/18 08/31/18 08/31/18 07:30 09:18 09:30 Temperature 97.6 F Pulse Rate 79 92 H Pulse Rate [ 101 H Posterior Bilateral Throughout] Pulse Rate [ Right Radial] Respiratory 18 Rate Respiratory 22 Rate [Posterior Bilateral Throughout] Blood Pressure 129/73 131/68 O2 Sat by Pulse 95 95 Oximetry 08/31/18 08/31/18 08/31/18 09:49 11:00 14:14 Temperature 97.5 F L Pulse Rate 89 Pulse Rate [ 94 H Posterior Bilateral Throughout] Pulse Rate [ 92 H Right Radial] Respiratory 18 18 Rate Respiratory 20 Rate [Posterior Bilateral Throughout] Blood Pressure 126/67 O2 Sat by Pulse 95 92 Oximetry 08/31/18 15:33 Temperature Pulse Rate Pulse Rate [ 50 L Posterior Bilateral Throughout] Pulse Rate [ Right Radial] Respiratory Rate Respiratory 20 Rate [Posterior Bilateral Throughout] Blood Pressure O2 Sat by Pulse Oximetry General appearance: Present: no acute distress, well-nourished - EENT Eyes: PERRL, EOM intact ENT: hearing intact, clear oral mucosa Ears: bilateral: normal - Neck Neck: supple, normal ROM - Respiratory Respiratory effort: normal Respiratory: bilateral: CTA, rhonchi, wheezing - Breasts Breasts: normal - Cardiovascular Heart rate: 78 Rhythm: regular Heart Sounds: Present: S1 & S2. Absent: gallop, rub Extremities: pulses intact, No edema, normal color, Full ROM - Gastrointestinal General gastrointestinal: Present: soft, non-tender, non-distended, normal bowel sounds Rectal Exam: deferred - Genitourinary Female genitourinary: normal - Integumentary Integumentary: clear, warm, dry - Musculoskeletal Musculoskeletal: 1, strength equal bilaterally - Neurologic Neurologic: moves all extremities - Psychiatric Psychiatric: memory intact, appropriate mood/affect, intact judgment & insight - Labs CBC & Chem 7: 08/30/18 05:17 08/30/18 05:17 Labs: Abnormal lab results 08/30/18 08/30/18 08/31/18 Range/Units 16:45 21:46 07:12 POC Glucose 152 H 172 H 126 H (70-105)
--- NOTE | 2018-08-31 19:38 | Progress Note ---
Assessment and Plan Patient is a 68 yo woman with a history of chronic combined respiratory failure due to end-stage COPD on 3 liter home O2, type 2 DM, prior tobacco dependency and GERD who presents to [facility] ED with severe progressive worsening intermittent SOB that started yesterday without any aggravating or relieving factors associated with substernal intermittent moderate squeezing nonradiating chest pains that started at 8pm last night, lasting more than 1 hour with any aggravating or relieving factors. EMS start her on CPAP. She was given 2 albute rol treatments in route as well as magnesium and Solu-Medrol. She arrives with improved respiratory status but persistent wheezing and SOB. Patient presently resting in bed on 3 litres O2.O2 saturation 97% Chest xray reported emphysematous changes. No acute findings. Patient started on I/V solumedrol, Albuterol/atrovent aerosol treatments, and antibiotics. 08/30/18 Patient sitting up in chair. Says breathing better to day. Resting on 4 litres O2. O2 saturation 95%. 08/31/18 Patient resting in bed. Says breathing better . On 4 litres O2. O2 saturation 94%.No acute respiratory distress. - Patient Problems (1) COPD exacerbation Current Visit: Yes Status: Acute Plan to address problem: O2 4 litres via nasal canula. Albuterol/atrovent aerosol treatments. Continue I/V solumedrol. Continue ceftrioxone and zithromax. Continue S/C Heparin. Continue PEPCID. (2) Acute and chronic respiratory failure with hypoxia Current Visit: No Status: Acute Plan to address problem: O2 4 litres via nasal canula. Albuterol/atrovent aerosol treatments. Continue I/V solumedrol. Continue ceftrioxone and zithromax. Continue S/C Heparin. Continue PEPCID. (3) Acute bronchitis Current Visit: No Status: Acute Plan to address problem: Patient is on ceftrioxone and zithromax. (4) GERD (gastroesophageal reflux disease) Current Visit: No Status: Chronic Qualifiers: Esophagitis presence: without esophagitis Qualified Code(s): K21.9 - Gastro-esophageal reflux disease without esophagitis Plan to address problem: Patient is on PEPCID. (5) HTN (hypertension) Current Visit: No Status: Chronic Qualifiers: Hypertension type: essential hypertension Qualified Code(s): I10 - Essential (primary) hypertension Plan to address problem: Management as per primary care. (6) T2DM (type 2 diabetes mellitus) Current Visit: No Status: Chronic Qualifiers: Diabetes mellitus care home insulin use: without care home use Plan to address problem: Management as per primary care. Subjective Date of service: 08/31/18 Principal diagnosis: Acute resp failure and copd exacerbation Interval history: Patient resting in bed. Says breathing better . On 4 litres O2. O2 saturation 94%.No acute respiratory distress. Objective Vital Signs - 12hr 08/31/18 08/31/18 08/31/18 09:18 09:30 09:49 Temperature Pulse Rate 92 H Pulse Rate [ 101 H 94 H Posterior Bilateral Throughout] Pulse Rate [ Right Radial] Respiratory Rate Respiratory 22 20 Rate [Posterior Bilateral Throughout] Blood Pressure 131/68 O2 Sat by Pulse 95 Oximetry 08/31/18 08/31/18 08/31/18 11:00 14:14 15:33 Temperature 97.5 F L Pulse Rate 89 Pulse Rate [ 50 L Posterior Bilateral Throughout] Pulse Rate [ 92 H Right Radial] Respiratory 18 18 Rate Respiratory 20 Rate [Posterior Bilateral Throughout] Blood Pressure 126/67 O2 Sat by Pulse 95 92 Oximetry 08/31/18 15:45 Temperature Pulse Rate Pulse Rate [ 52 L Posterior Bilateral Throughout] Pulse Rate [ Right Radial] Respiratory Rate Respiratory 20 Rate [Posterior Bilateral Throughout] Blood Pressure O2 Sat by Pulse Oximetry Constitutional: no acute distress, alert Eyes: non-icteric ENT: oropharynx moist Neck: supple, no JVD Ascultation: Bilateral: wheezes (Occasional wheeze.) Cardiovascular: regular rate and rhythm Gastrointestinal: normoactive bowel sounds, soft, non-tender Integumentary: normal Extremities: no cyanosis, no edema Neurologic: normal mental status, non-focal exam, pupils equal and round, CN II- XII normal Psychiatric: mood appropriate CBC and BMP: 08/30/18 05:17 08/30/18 05:17 ABG, PT/INR, D-dimer: ABG POC ABG pH 7.361 (7.35-7.45) 08/29/18 07:56 POC ABG pCO2 47.3 (35-45) H 08/29/18 07:56 POC ABG pO2 74 (80-105) L 08/29/18 07:56 POC ABG HCO3 26.8 (22-26 mml/L) 08/29/18 07:56 POC ABG Total CO2 28 (23-27mmol/L) 08/29/18 07:56 POC ABG O2 Sat 94 08/29/18 07:56 PT/INR, D-dimer PT 12.2 Sec. (12.2-14.9) 08/29/18 07:15 INR 0.86 (0.87-1.13) L 08/29/18 07:15 171.29 ng/mlDDU (0-234) 08/29/18 07:15 Abnormal lab findings: Abnormal Labs 08/29/18 08/29/18 08/29/18 07:15 07:15 07:15 MCV 77 L MCH 25 L RDW 18.1 H [place] % (Auto) 11.2 H Eos % (Auto) 6.2 H INR 0.86 L POC ABG pCO2 POC ABG pO2 BUN 21 H Creatinine Glucose 125 H POC Glucose Magnesium 2.90 H TSH 08/29/18 08/29/18 08/29/18 07:56 17:46 23:50 MCV MCH RDW [place] % (Auto) Eos % (Auto) INR POC ABG pCO2 47.3 H POC ABG pO2 74 L BUN Creatinine Glucose POC Glucose 186 H 198 H Magnesium TSH 08/30/18 08/30/18 08/30/18 05:17 05:17 05:17 MCV 78 L MCH 25 L RDW 18.1 H [place] % (Auto) Eos % (Auto) INR POC ABG pCO2 POC ABG pO2 BUN Creatinine 0.6 L Glucose 132 H POC Glucose Magnesium TSH 0.171 L 08/30/18 08/30/18 08/30/18 07:10 11:41 16:45 MCV MCH RDW [place] % (Auto) Eos % (Auto) INR POC ABG pCO2 POC ABG pO2 BUN Creatinine Glucose POC Glucose 139 H 127 H 152 H Magnesium TSH 08/30/18 08/31/18 08/31/18 21:46 07:12 16:13 MCV MCH RDW [place] % (Auto) Eos % (Auto) INR POC ABG pCO2 POC ABG pO2 BUN Creatinine Glucose POC Glucose 172 H 126 H 147 H Magnesium TSH
[2018-09-01] MEDS: SOLU-Medrol IV SCH (00:25)
[2018-09-01] MEDS: PEPCID PO SCH ×2 (00:27→09:36)
[2018-09-01] MEDS: HEPARIN SUB-Q SCH ×2 (00:28→09:38)
[2018-09-01] MEDS: GLUCOPHAGE PO SCH ×2 (00:29→09:36)
[2018-09-01] MEDS: BROVANA NEBU IH SCH (07:57)
[2018-09-01] MEDS: DUONEB *Not for PRN Use IH SCH (07:59)
[2018-09-01 08:20] VITALS: BP 109/55
--- NOTE | 2018-09-01 08:39 | Discharge Summary ---
Providers - Providers Date of Admission: 08/29/18 10:05 Attending physician: RODRIGUEZ WALSH MD 08/29/18 11:42 Consult to Physician [CONS] Routine Comment: Consulting Provider: NIRMALA JAMESON Physician Instructions: Reason For Exam: COPD, pt know to you 08/29/18 12:31 Physical Therapy Evaluation and Treat [CONS] Routine Comment: Reason For Exam: Weakness [facility] Reason for admission: shortness of breath Condition: Stable Hospital course: Patient is a 68 yo woman with a history of chronic combined respiratory failure due to end-stage COPD on 3 liter home O2, type 2 DM, prior tobacco dependency and GERD who presents to [facility] ED with severe progressive worsening intermittent SOB that started yesterday without any aggravating or relieving factors associated with substernal intermittent moderate squeezing nonradiating chest pains that started at 8pm last night, lasting more than 1 hour with any aggravating or relieving factors. EMS start her on CPAP. She was given 2 albuterol treatments in route as well as magnesium and Solu-Medrol. She arrives with improved respiratory status but persistent wheezing and SOB. Patient notes that she has advanced COPD and is at peace with her situation. We discussed how to reduce exacerbation and she is agreeable to following with Cardiology and pulmonary. Lives with son PCP: CXR: Emphysematous changes. No acute process. Acute on chronic combined respiratory failure, CPAP weaned off: continue O2 support, Pulmonary input noted AE COPD causing the above with advanced COPD: treated with abx, patient improved, will discharge with tapering dose of steroids and abx. Acute Bronchitis: Continue abx, will descalate as patients improve Chest pains: repeat troponin, patient refused stress test. states its not her heart that this the issue but her lungs, advised to follow with Cardiology outpatient. Hypertension: low salt diet, continue norvasc and ARB tobacco dependence history: encouragement given Type 2 diabetes mellitus: ssi, accuchecks and metformin GERD: continue Pepcid Euthryoid syndrome. Continue outpatient. Disposition: [id number]/TX-06 HOME UNDER HOME [facility] Time spent for discharge: 35 mins Core Measure Documentation - Palliative Care Palliative Care/ Comfort Measures: Not Applicable - Core Measures Any of the following diagnoses?: none Exam - Physical Exam Narrative exam: Gen: WDWN, NAD, Awake, Alert, Orientated x 3, on nasal cannula, sitting at the bedside HEENT: NCAT, EOMI, PERRL, OP Clear Neck: supple, no adenopathy, no thyromegaly, no JVD CVS/Heart: RRR, normal S1S2, pulses present bilaterally Chest/Lungs: diminished bs bilateral, Symmetrical chest expansion, reduced air entry bilaterally, reproducible substernal chest wall tenderness GI/Abdomen: soft, NTND, good bowel sounds, no guarding or rebound /Bladder: no suprapubic tenderness, no CVA or paraspinal tenderness Extermity/Skin: no c/c/e, no obvious rash MSK: FROM x 4 Neuro: CN 2-12 grossly intact, no new focal deficits Psych: calm - Constitutional Vitals: Temp Pulse Resp BP Pulse Ox 98.7 F 78 20 109/55 90 09/01/18 07:27 09/01/18 07:27 09/01/18 07:27 09/01/18 07:27 09/01/18 07:27 Plan Activity: advance as tolerated, fall precautions Diet: diabetic Special Instructions: record daily BP diary, record blood sugar diary Follow up with: [facility] MD JULIANA [Primary Care Provider] - 7 Days HANNY ROY MD [Staff Physician] - 7 Days NIRMALA JAMESON MD [Staff Physician] - 7 Days Prescriptions: Ipratropium [Atrovent NEB] 0.5 mg IH QID #90 nebu Prednisone [predniSONE 10 mg (6-Day Pack, 21 Tabs)] 10 mg PO .TAPER #1 tab.ds.pk ALBUTEROL NEB's [Proventil 0.083% NEBS] 2.5 mg IH QID PRN #90 nebu PRN Reason: Wheezing Azithromycin [Zithromax Z-JOVAN] 250 mg PO DAILY #5 tablet
[2018-09-01] MEDS: ZITHROMAX PO SCH (09:36)
[2018-09-01] MEDS: ROCEPHIN/NS 1 GM/50 ML 1 GM/50 ML BAG IV SCH (09:36)
[2018-09-01] MEDS: COZAAR PO SCH (09:37)
[2018-09-01] MEDS: NORVASC PO SCH (09:38)
[2018-09-01] MEDS ORDERED: K-DUR PO SCH (10:00)
== END 2018-09-01 11:00 | disposition home health service (06) | DRG 189 ==
LOC: ED 07:09 → 2B-ACE 10:05
PROVIDERS: ADMIT Internal Medicine; ATTEND Internal Medicine
PROC: 4A033R1 Measurement of Arterial Saturation, Peripheral, Percutaneous Approach (ICD-10-PCS; principal; 2018-08-29)
DX: J96.21 Acute and chronic respiratory failure with hypoxia (principal); J44.1 Chronic obstructive pulmonary disease with (acute) exacerbation; J44.0 Chronic obstructive pulmonary disease with (acute) lower respiratory infection; J20.9 Acute bronchitis, unspecified; J96.22 Acute and chronic respiratory failure with hypercapnia; E11.9 Type 2 diabetes mellitus without complications; K21.9 Gastro-esophageal reflux disease without esophagitis; E78.5 Hyperlipidemia, unspecified; R07.9 Chest pain, unspecified; E07.81 Sick-euthyroid syndrome; I10 Essential (primary) hypertension; Z79.84 Long term (current) use of oral hypoglycemic drugs; Z90.710 Acquired absence of both cervix and uterus; Z99.81 Dependence on supplemental oxygen; Z87.891 Personal history of nicotine dependence
CPT/HCPCS: 36415; 36600; 71045; 80048; 80076; 80307; 81001; 82550; 82553; 82803; 82962; 83735; 83880; 84439; 84443; 84484; 85025; 85027; 85379; 85610; 85730; 87040; 93005; 93010; 94640; 94760; 96361; 96374; G0378; J0456; J0696; J1644; J2405; J2930; J7030; J7050

== ENCOUNTER 2018-09-29 22:36 | Inpatient (IN) | payer MEDICARE ==
--- NOTE | 2018-09-29 23:53 | XRay Report ---
PROCEDURE: XR CHEST ROUTINE 2V TECHNIQUE: PA and lateral chest radiographs were obtained. HISTORY: dyspnea COMPARISONS: None. FINDINGS: Heart: Normal. Mediastinum/Vessels: Normal. Lungs/Pleural space: Lungs are expanded. There is mild COPD. There are mild fibrotic changes at the lung bases. There are no acute infiltrates. There is no pleural effusion or pneumothorax.. Bony thorax: No acute osseous abnormality. IMPRESSION: The heart size is normal.. Lungs are expanded. There is mild COPD. There are mild fibrot ic changes at the lung bases. There are no acute infiltrates. There is no pleural effusion or pneumot horax.. This document is electronically signed by Leandro England MD., September 29 2018 11:51:11 PM ET
[2018-09-30 00:16] LABS: Basophils # (Auto) 0.1 K/mm3 (0.0-0.1); Eosinophils # (Auto) 0.1 K/mm3 (0.0-0.4); Eosinophils % (Auto) 1.4 % (0.0-4.3); Hemoglobin 12.8 gm/dl (10.1-14.3); Lymphocytes # (Auto) 1.7 K/mm3 (1.2-5.4); Mean Corpuscular HGB Conc 33 % (30-34); Mean Corpuscular Volume 78 fl (79-97); Monocytes # (Auto) 0.7 K/mm3 (0.0-0.8); Monocytes % (Auto) 9.8 % (0.0-7.3); Platelet Count 248 K/mm3 (140-440); Red Blood Count 5.01 M/mm3 (3.65-5.03); Red Cell Distribution Width 19.2 % (13.2-15.2)
[2018-09-30] MEDS ORDERED: ATROVENT IH ONE (00:29)
[2018-09-30] MEDS ORDERED: MORPHINE IV ONE (00:29)
[2018-09-30] MEDS ORDERED: PROVENTIL IH ONE (00:29)
[2018-09-30 00:39] LABS: Alanine Aminotransferase 7 units/L (7-56); BUN/Creatinine Ratio 24; Blood Urea Nitrogen 17 mg/dL (7-17); Calcium 9.7 mg/dL (8.4-10.2); Hemolysis Index 3
--- NOTE | 2018-09-30 00:46 | Emergency Department Report ---
ED General Adult HPI - General Chief complaint: Dyspnea/Respdistress Stated complaint: MADONNA Time Seen by Provider: 09/30/18 00:22 Source: patient, family Mode of arrival: Wheelchair Limitations: No Limitations - History of Present Illness Initial comments: Patient is a 68-year-old female past medical history of COPD who is on 3 L of oxygen at baseline as well as hypertension and type 2 diabetes who is presenting with shortness of breath. Patient states that earlier today she began to have difficulty breathing which is worse with exertion. Patient states that she is done several breathing treatments throughout the day with no improvement of her symptoms. Patient also states that shortness of breath is accompanied with chest tightness in the substernal region. Patient has a stress test scheduled for tomorrow which she caught canceled and came to the emergency department. Patient was here one month ago for very similar symptoms. The patient is here for COPD exacerbation however she was seen by cardiology to do a stress test at that time however the patient refused. The patient denies any fevers chills or productive cough nausea vomiting or diarrhea at this time. - Related Data Home Medications Medication Instructions Recorded Confirmed Last Taken Amlodipine Besylate [Norvasc] 10 mg PO QDAY 08/24/17 08/29/18 08/29/18 Famotidine [Pepcid] 20 mg PO BID 08/24/17 08/29/18 08/29/18 ALBUTEROL Inhaler(NF) [VENTOLIN 2 puff IH QID 08/29/18 08/29/18 08/29/18 Inhaler(NF)] Potassium Chloride [Klor-Con M20] 20 meq PO 3XW 08/29/18 08/29/18 08/28/18 metFORMIN [Glucophage] 2 tab PO BID 08/29/18 08/29/18 08/28/18 Previous Rx's Medication Instructions Recorded Last Taken Type Furosemide [Lasix TAB] 40 mg PO QDAY #30 tablet 11/29/17 08/29/18 Rx ALBUTEROL NEB's [Proventil 0.083% 2.5 mg IH QID PRN #90 nebu 09/01/18 Unknown Rx NEBS] Azithromycin [Zithromax Z-JOVAN] 250 mg PO DAILY #5 tablet 09/01/18 Unknown Rx Ipratropium [Atrovent NEB] 0.5 mg IH QID #90 nebu 09/01/18 Unknown Rx Losartan [Cozaar] 50 mg PO QDAY #30 tablet 09/01/18 Unknown Rx Prednisone [predniSONE 10 mg 10 mg PO .TAPER #1 tab.ds.pk 09/01/18 Unknown Rx (6-Day Pack, 21 Tabs)] Allergies Allergy/AdvReac Type Severity Reaction Status Date / Time No Known Allergies Allergy Unverified 10/29/14 10:06 ED Review of Systems ROS: Stated complaint: MADONNA Other details as noted in HPI Comment: All other systems reviewed and negative ED Past Medical Hx - Past Medical History Previous Medical History?: Yes Hx Hypertension: Yes Hx Diabetes: Yes Hx COPD: Yes Hx HIV: No - Surgical History Past Surgical History?: Yes Additional Surgical History: hysterectomy - Social History Smoking Status: Former Smoker Substance Use Type: None - Medications Home Medications: Home Medications Medication Instructions Recorded Confirmed Last Taken Type Amlodipine Besylate [Norvasc] 10 mg PO QDAY 08/24/17 08/29/18 08/29/18 History Famotidine [Pepcid] 20 mg PO BID 08/24/17 08/29/18 08/29/18 History Furosemide [Lasix TAB] 40 mg PO QDAY #30 tablet 11/29/17 08/29/18 08/29/18 Rx ALBUTEROL Inhaler(NF) [VENTOLIN 2 puff IH QID 08/29/18 08/29/18 08/29/18 History Inhaler(NF)] Potassium Chloride [Klor-Con M20] 20 meq PO 3XW 08/29/18 08/29/18 08/28/18 History metFORMIN [Glucophage] 2 tab PO BID 08/29/18 08/29/18 08/28/18 History ALBUTEROL NEB's [Proventil 0.083% 2.5 mg IH QID PRN #90 nebu 09/01/18 Unknown Rx NEBS] Azithromycin [Zithromax Z-JOVAN] 250 mg PO DAILY #5 tablet 09/01/18 Unknown Rx Ipratropium [Atrovent NEB] 0.5 mg IH QID #90 nebu 09/01/18 Unknown Rx Losartan [Cozaar] 50 mg PO QDAY #30 tablet 09/01/18 Unknown Rx Prednisone [predniSONE 10 mg 10 mg PO .TAPER #1 tab.ds.pk 09/01/18 Unknown Rx (6-Day Pack, 21 Tabs)] ED Physical Exam - General Limitations: No Limitations General appearance: alert, in no apparent distress - Head Head exam: Present: atraumatic, normocephalic - Eye Eye exam: Present: normal appearance, PERRL, EOMI - ENT ENT exam: Present: mucous membranes moist - Neck Neck exam: Present: normal inspection - Respiratory Respiratory exam: Present: normal lung sounds bilaterally, prolonged expiratory. Absent: respiratory distress, wheezes, rales, rhonchi, accessory muscle use - Cardiovascular Cardiovascular Exam: Present: regular rate, normal rhythm, normal heart sounds. Absent: systolic murmur, diastolic murmur, rubs, gallop - GI/Abdominal GI/Abdominal exam: Present: soft, normal bowel sounds. Absent: distended, tenderness, guarding, rebound - Extremities Exam Extremities exam: Present: normal inspection - Back Exam Back exam: Present: normal inspection - Neurological Exam Neurological exam: Present: alert, oriented X3 - Psychiatric Psychiatric exam: Present: normal affect, normal mood - Skin Skin exam: Present: warm, dry, intact, normal color. Absent: rash ED Course Vital Signs 09/29/18 09/29/18 09/30/18 22:46 23:36 00:20 Temperature 98.4 F 98.4 F Pulse Rate 85 81 76 Pulse Rate [ Anterior Bilateral Throughout] Respiratory 18 18 19 Rate Respiratory Rate [Anterior Bilateral Throughout] Blood Pressure 126/64 126/64 O2 Sat by Pulse 93 Oximetry 09/30/18 09/30/18 09/30/18 00:30 00:45 00:56 Temperature Pulse Rate 73 66 Pulse Rate [ 95 H Anterior Bilateral Throughout] Respiratory 11 L 9 L Rate Respiratory 16 Rate [Anterior Bilateral Throughout] Blood Pressure 112/69 112/69 O2 Sat by Pulse 95 96 Oximetry 09/30/18 09/30/18 09/30/18 01:00 01:15 01:31 Temperature Pulse Rate 69 66 73 Pulse Rate [ Anterior Bilateral Throughout] Respiratory 18 16 20 Rate Respiratory Rate [Anterior Bilateral Throughout] Blood Pressure 106/73 110/68 134/71 O2 Sat by Pulse 98 99 98 Oximetry 09/30/18 01:45 Temperature Pulse Rate 73 Pulse Rate [ Anterior Bilateral Throughout] Respiratory 16 Rate Respiratory Rate [Anterior Bilateral Throughout] Blood Pressure 132/67 O2 Sat by Pulse 98 Oximetry ED Medical Decision Making - Lab Data Result diagrams: 09/29/18 23:58 09/29/18 23:58 Lab Results 09/29/18 09/29/18 09/30/18 Range/Units 23:58 23:58 00:40 WBC 7.0 (4.5-11.0) K/mm3 RBC 5.01 (3.65-5.03) M/mm3 Hgb 12.8 (10.1-14.3) gm/dl Hct 39.0 (30.3-42.9) % MCV 78 L (79-97) fl MCH 26 L (28-32) pg MCHC 33 (30-34) % RDW 19.2 H (13.2-15.2) % Plt Count 248 (140-440) K/mm3 Lymph % (Auto) 24.0 (13.4-35.0) % [place] % (Auto) 9.8 H (0.0-7.3) % Eos % (Auto) 1.4 (0.0-4.3) % Baso % (Auto) 1.0 (0.0-1.8) % Lymph # 1.7 (1.2-5.4) K/mm3 [place] # 0.7 (0.0-0.8) K/mm3 Eos # 0.1 (0.0-0.4) K/mm3 Baso # 0.1 (0.0-0.1) K/mm3 Seg Neutrophils % 63.8 (40.0-70.0) % Seg Neutrophils # 4.5 (1.8-7.7) K/mm3 PT 12.3 (12.2-14.9) Sec. INR 0.87 (0.87-1.13) APTT 26.9 (24.2-36.6) Sec. Sodium 140 (137-145) mmol/L Potassium 4.2 (3.6-5.0) mmol/L Chloride 102.2 (98-107) mmol/L Carbon Dioxide 26 (22-30) mmol/L Anion Gap 16 mmol/L BUN 17 (7-17) mg/dL Creatinine 0.7 (0.7-1.2) mg/dL Estimated GFR > 60 ml/min BUN/Creatinine Ratio 24 % Glucose 104 H (65-100) mg/dL Calcium 9.7 (8.4-10.2) mg/dL Total Bilirubin < 0.20 (0.1-1.2) mg/dL AST 12 (5-40) units/L ALT 7 (7-56) units/L Alkaline Phosphatase 59 (35-129) units/L Total Creatine Kinase (30-135) units/L CK-MB (CK-2) (0.0-4.0) ng/mL CK-MB (CK-2) Rel Index (0-4) Troponin T (0.00-0.029) ng/mL Total Protein 6.7 (6.3-8.2) g/dL Albumin 4.0 (3.9-5) g/dL Albumin/Globulin Ratio 1.5 % 09/30/18 09/30/18 Range/Units 00:40 00:40 WBC (4.5-11.0) K/mm3 RBC (3.65-5.03) M/mm3 Hgb (10.1-14.3) gm/dl Hct (30.3-42.9) % MCV (79-97) fl MCH (28-32) pg MCHC (30-34) % RDW (13.2-15.2) % Plt Count (140-440) K/mm3 Lymph % (Auto) (13.4-35.0) % [place] % (Auto) (0.0-7.3) % Eos % (Auto) (0.0-4.3) % Baso % (Auto) (0.0-1.8) % Lymph # (1.2-5.4) K/mm3 [place] # (0.0-0.8) K/mm3 Eos # (0.0-0.4) K/mm3 Baso # (0.0-0.1) K/mm3 Seg Neutrophils % (40.0-70.0) % Seg Neutrophils # (1.8-7.7) K/mm3 PT (12.2-14.9) Sec. INR (0.87-1.13) APTT (24.2-36.6) Sec. Sodium (137-145) mmol/L Potassium (3.6-5.0) mmol/L Chloride (98-107) mmol/L Carbon Dioxide (22-30) mmol/L Anion Gap mmol/L BUN (7-17) mg/dL Creatinine (0.7-1.2) mg/dL Estimated GFR ml/min BUN/Creatinine Ratio % Glucose (65-100) mg/dL Calcium (8.4-10.2) mg/dL Total Bilirubin (0.1-1.2) mg/dL AST (5-40) units/L ALT (7-56) units/L Alkaline Phosphatase (35-129) units/L Total Creatine Kinase 45 (30-135) units/L CK-MB (CK-2) < 1.0 (0.0-4.0) ng/mL CK-MB (CK-2) Rel Index 2.2 (0-4) Troponin T < 0.010 (0.00-0.029) ng/mL Total Protein (6.3-8.2) g/dL Albumin (3.9-5) g/dL Albumin/Globulin Ratio % - EKG Data -: EKG Interpreted by Ga EKG shows normal: sinus rhythm, axis, intervals, QRS complexes, ST-T waves Rate: normal - EKG Data Interpretation: no acute changes - Radiology Data [facility] [address] [place] [address] XRay Report Signed Patient: WONG PEREZ MR#: [id number] : 1950 Acct:[id number] Age/Sex: 68 / F ADM Date: 09/29/18 Loc: ED Attending Dr: Ordering Physician: ALON WATSON MD Date of Service: 09/29/18 Procedure(s): XR chest routine 2V Accession Number(s): [id number] cc: ALON WATSON MD Fluoro Time In Minutes: PROCEDURE: XR CHEST ROUTINE 2V TECHNIQUE: PA and lateral chest radiographs were obtained. HISTORY: dyspnea COMPARISONS: None. FINDINGS: Heart: Normal. Mediastinum/Vessels: Normal. Lungs/Pleural space: Lungs are expanded. There is mild COPD. There are mild fibrotic changes at the lung bases. There are no acute infiltrates. There is no pleural effusion or pneumothorax.. Bony thorax: No acute osseous abnormality. IMPRESSION: The heart size is normal.. Lungs are expanded. There is mild COPD. There are mild fibrotic changes at the lung bases. There are no acute infiltrates. There is no pleural effusion or pneumothorax.. This document is electronically signed by Dede Berger MD., September 29 2018 11:51:11 PM ET Transcribed By: CO Dictated By: DEDE BERGER MD Electronically Authenticated By: DEDE BERGER MD Signed Date/Time: 09/29/18 7233 DD/ 26 TD/TT: 09/29/182326 - Medical Decision Making Patient is a 68-year-old female who is presenting with shortness of breath with chest tightness which is worse with exertion. Patient does have risk factors for coronary artery disease as the patient has hypertension and diabetes. Patient's was supposed to have a stress test tomorrow as an outpatient however she states her symptoms were worsening and she came here today to be evaluated. Patient's first troponin is negative. Patient be admitted to the hospitalist service at this time for cardiology consult. Critical Care Time: Yes (30) Critical care attestation.: If time is entered above; I have spent that time in minutes in the direct care of this critically ill patient, excluding procedure time. ED Disposition Clinical Impression: Acute chest pain, Unstable angina Disposition: -09 OP ADMIT IP TO THIS HOSP Is pt being admited?: Yes Does the pt Need Aspirin: Yes Condition: Stable Instructions: Chest Pain (ED), Angina (ED) Time of Disposition: 02:13
[2018-09-30 01:15] LABS: Creatine Kinase MB < 1.0 ng/mL (0.0-4.0)
[2018-09-30 01:21] LABS: INR 0.87 (0.87-1.13)
[2018-09-30 01:22] LABS: Partial Thromboplastin Time 26.9 Sec. (24.2-36.6)
[2018-09-30] MEDS ORDERED: ASPIRIN PO ONE (02:14)
[2018-09-30] MEDS ORDERED: APRESOLINE IV PRN (02:29)
[2018-09-30] MEDS ORDERED: SODIUM CHLORIDE FLUSH SYRINGE 10 ML IV PRN (02:29)
--- NOTE | 2018-09-30 03:36 | History and Physical Report ---
<JENNYFER ROBERTS - Last Filed: 09/30/18 04:16> History of Present Illness Date of examination: 09/30/18 Date of admission: 09/30/2018 Chief complaint: The cecal tip with pain and chest tightness History of present illness: Patient is a 68-year-old female with PMHx of COPD (home O2 dependent 3 L), hypertension, DM type II who presents to the ER with complaints of shortness of breath and chest pressure x1day. Patient states that the symptoms started earlier today, she became short of breath she is unable to catch her breath, the symptoms is worse with activities. Patient states that she took several breathing treatments at home without any relief of her symptoms. Patient also reports that the SOB is associated with chest tightness, she states that it is a pressure like pain in the mid-substernal area. Patient states that she was admitted a few weeks ago with the same symptoms, she was referred to cardiology for evaluation, she had seen the cardiology on the 09/27 and she is scheduled for a follow-up stress test in the tube teller's office in the morning. Patient denies any dizziness, denies headache, she denies cough, request chest congestions, she denies palpitation, denies diaphoresis. Patient was seen in the ER, she was treated for acute respiratory distress, COPD exacerbation and chest pain, she is admitted for continuous management of her symptoms. Past History Past Medical History: COPD, hypertension, hyperlipidemia Past Surgical History: hysterectomy Social history: no significant social history Family history: no significant family history Medications and Allergies Allergies Allergy/AdvReac Type Severity Reaction Status Date / Time No Known Allergies Allergy Unverified 10/29/14 10:06 Home Medications Medication Instructions Recorded Confirmed Last Taken Type Famotidine [Pepcid] 20 mg PO BID 08/24/17 09/30/18 08/29/18 History Furosemide [Lasix TAB] 40 mg PO QDAY #30 tablet 11/29/17 09/30/18 08/29/18 Rx ALBUTEROL Inhaler(NF) [VENTOLIN 2 puff IH QID 08/29/18 09/30/18 08/29/18 History Inhaler(NF)] Potassium Chloride [Klor-Con M20] 20 meq PO 3XW 08/29/18 09/30/18 08/28/18 Hist ory metFORMIN [Glucophage] 2 tab PO BID 08/29/18 09/30/18 09/29/18 History 2100 ALBUTEROL NEB's [Proventil 0.083% 2.5 mg IH QID PRN #90 nebu 09/01/18 09/30/18 Unknown Rx NEBS] Ipratropium [Atrovent NEB] 0.5 mg IH QID #90 nebu 09/01/18 09/30/18 Unknown Rx Losartan [Cozaar] 50 mg PO QDAY #30 tablet 09/01/18 09/30/18 Unknown Rx Prednisone [predniSONE 10 mg 10 mg PO .TAPER #1 tab.ds.pk 09/01/18 09/30/18 Unknown Rx (6-Day Pack, 21 Tabs)] NIFEdipine XL [Procardia Xl] 60 mg PO QDAY 09/30/18 09/30/18 Unknown History Active Meds: Active Medications Aspirin (Ecotrin) 325 mg PO QDAY NANCY Enoxaparin Sodium (Lovenox) 40 mg SUB-Q QDAY@1000 NANCY Hydralazine HCl (Apresoline) 10 mg IV Q6H PRN PRN Reason: FOR SBP > target Sodium Chloride (Sodium Chloride Flush Syringe 10 Ml) 10 ml IV PRN PRN PRN Reason: LINE FLUSH Review of Systems Cardiovascular: chest pain, shortness of breath, dyspnea on exertion Respiratory: cough, dyspnea on exertion, congestion Exam - Constitutional Vitals: Temp Pulse Resp BP Pulse Ox 98.4 F 101 H 20 134/68 97 09/29/18 23:36 09/30/18 02:30 09/30/18 02:30 09/30/18 02:30 09/30/18 02:30 General appearance: Present: mild distress - EENT Eyes: Present: EOM intact ENT: hearing intact - Neck Neck: Present: supple - Respiratory Respiratory effort: normal Respiratory: bilateral: diminished - Cardiovascular Rhythm: regular Heart Sounds: Present: S1 & S2 - Extremities Extremities: no ischemia Peripheral Pulses: within normal limits - Abdominal General gastrointestinal: Present: deferred, non-tender - Integumentary Integumentary: Present: warm, dry - Musculoskeletal Musculoskeletal: generalized weakness - Psychiatric Psychiatric: cooperative - Neurologic Neurologic: moves all extremities Results - Labs CBC & Chem 7: 09/29/18 23:58 09/29/18 23:58 Labs: Laboratory Last Values WBC 7.0 K/mm3 (4.5-11.0) 09/29/18 23:58 RBC 5.01 M/mm3 (3.65-5.03) 09/29/18 23:58 Hgb 12.8 gm/dl (10.1-14.3) 09/29/18 23:58 Hct 39.0 % (30.3-42.9) 09/29/18 23:58 MCV 78 fl (79-97) L 09/29/18 23:58 MCH 26 pg (28-32) L 09/29/18 23:58 MCHC 33 % (30-34) 09/29/18 23:58 RDW 19.2 % (13.2-15.2) H 09/29/18 23:58 Plt Count 248 K/mm3 (140-440) 09/29/18 23:58 Lymph % (Auto) 24.0 % (13.4-35.0) 09/29/18 23:58 [place] % (Auto) 9.8 % (0.0-7.3) H 09/29/18 23:58 Eos % (Auto) 1.4 % (0.0-4.3) 09/29/18 23:58 Baso % (Auto) 1.0 % (0.0-1.8) 09/29/18 23:58 Lymph # 1.7 K/mm3 (1.2-5.4) 09/29/18 23:58 [place] # 0.7 K/mm3 (0.0-0.8) 09/29/18 23:58 Eos # 0.1 K/mm3 (0.0-0.4) 09/29/18 23:58 Baso # 0.1 K/mm3 (0.0-0.1) 09/29/18 23:58 Seg Neutrophils % 63.8 % (40.0-70.0) 09/29/18 23:58 Seg Neutrophils # 4.5 K/mm3 (1.8-7.7) 09/29/18 23:58 PT 12.3 Sec. (12.2-14.9) 09/30/18 00:40 INR 0.87 (0.87-1.13) 09/30/18 00:40 APTT 26.9 Sec. (24.2-36.6) 09/30/18 00:40 Sodium 140 mmol/L (137-145) 09/29/18 23:58 Potassium 4.2 mmol/L (3.6-5.0) 09/29/18 23:58 Chloride 102.2 mmol/L (98-107) 09/29/18 23:58 Carbon Dioxide 26 mmol/L (22-30) 09/29/18 23:58 16 mmol/L 09/29/18 23:58 BUN 17 mg/dL (7-17) 09/29/18 23:58 0.7 mg/dL (0.7-1.2) 09/29/18 23:58 Estimated GFR > 60 ml/min 09/29/18 23:58 24 % 09/29/18 23:58 Glucose 104 mg/dL (65-100) H 09/29/18 23:58 Calcium 9.7 mg/dL (8.4-10.2) 09/29/18 23:58 < 0.20 mg/dL (0.1-1.2) 09/29/18 23:58 AST 12 units/L (5-40) 09/29/18 23:58 ALT 7 units/L (7-56) 09/29/18 23:58 59 units/L (35-129) 09/29/18 23:58 45 units/L (30-135) 09/30/18 00:40 CK-MB (CK-2) < 1.0 ng/mL (0.0-4.0) 09/30/18 00:40 CK-MB (CK-2) Rel Index 2.2 (0-4) 09/30/18 00:40 < 0.010 ng/mL (0.00-0.029) 09/30/18 00:40 6.7 g/dL (6.3-8.2) 09/29/18 23:58 4.0 g/dL (3.9-5) 09/29/18 23:58 1.5 % 09/29/18 23:58 Assessment and Plan Assessment and plan: 1. Chest pain rule out ACS 2. COPD with acute exacerbation 3. HTN (BP stable) 4. DM type II 6. Hyperlipidemia Plan: Pt is admitted to [facility] for COPD Continue nebulizer treatmemt PRN for SOB Pulmocort daily O2 to keep sat > 92% Solumedrol 60mg Q6hr Consult cardiology for possible stress test in am Continue CE q6hr x 2 more Monitor vital signs Accu check ACHS with insulin per sliding scale Continue home meds Plan of care d/w pt, voiced understading Patient's condition and plan of care was discussed with Dr Pacheco Advance Directives: Yes VTE prophylaxis?: Mechanical Plan of care discussed with patient/family: Yes <NEPTALI PACHECO E - Last Filed: 09/30/18 21:16> History of Present Illness Date of admission: 09/30/18 04:46 Medications and Allergies Active Meds: Active Medications Albuterol (Proventil) 5 mg IH Q4HR PRN PRN Reason: Shortness Of Breath Aspirin (Ecotrin) 325 mg PO QDAY NANCY Enoxaparin Sodium (Lovenox) 40 mg SUB-Q QDAY@1000 NANCY Hydralazine HCl (Apresoline) 10 mg IV Q6H PRN PRN Reason: FOR SBP > target Methylprednisolone Sodium Succinate (Solu-Medrol) 80 mg IV Q6HR NANCY Sodium Chloride (Sodium Chloride Flush Syringe 10 Ml) 10 ml IV PRN PRN PRN Reason: LINE FLUSH Exam - Constitutional Vitals: Temp Pulse Resp BP Pulse Ox 98.4 F 80 21 123/67 97 09/29/18 23:36 09/30/18 04:45 09/30/18 04:45 09/30/18 04:45 09/30/18 04:45 Results - Labs CBC & Chem 7: 09/30/18 03:02 09/30/18 03:02 Labs: Laboratory Last Values WBC 7.7 K/mm3 (4.5-11.0) 09/30/18 03:02 RBC 4.99 M/mm3 (3.65-5.03) 09/30/18 03:02 Hgb 12.7 gm/dl (10.1-14.3) 09/30/18 03:02 Hct 39.2 % (30.3-42.9) 09/30/18 03:02 MCV 79 fl (79-97) 09/30/18 03:02 MCH 26 pg (28-32) L 09/30/18 03:02 MCHC 33 % (30-34) 09/30/18 03:02 RDW 19.1 % (13.2-15.2) H 09/30/18 03:02 Plt Count 239 K/mm3 (140-440) 09/30/18 03:02 Lymph % (Auto) 35.0 % (13.4-35.0) 09/30/18 03:02 [place] % (Auto) 9.7 % (0.0-7.3) H 09/30/18 03:02 Eos % (Auto) 1.4 % (0.0-4.3) 09/30/18 03:02 Baso % (Auto) 0.6 % (0.0-1.8) 09/30/18 03:02 Lymph # 2.7 K/mm3 (1.2-5.4) 09/30/18 03:02 [place] # 0.8 K/mm3 (0.0-0.8) 09/30/18 03:02 Eos # 0.1 K/mm3 (0.0-0.4) 09/30/18 03:02 Baso # 0.0 K/mm3 (0.0-0.1) 09/30/18 03:02 Seg Neutrophils % 53.3 % (40.0-70.0) 09/30/18 03:02 Seg Neutrophils # 4.1 K/mm3 (1.8-7.7) 09/30/18 03:02 PT 12.3 Sec. (12.2-14.9) 09/30/18 00:40 INR 0.87 (0.87-1.13) 09/30/18 00:40 APTT 26.9 Sec. (24.2-36.6) 09/30/18 00:40 Sodium 139 mmol/L (137-145) 09/30/18 03:02 Potassium 3.9 mmol/L (3.6-5.0) 09/30/18 03:02 Chloride 99.7 mmol/L (98-107) 09/30/18 03:02 Carbon Dioxide 24 mmol/L (22-30) 09/30/18 03:02 19 mmol/L 09/30/18 03:02 BUN 17 mg/dL (7-17) 09/30/18 03:02 0.7 mg/dL (0.7-1.2) 09/30/18 03:02 Estimated GFR > 60 ml/min 09/30/18 03:02 24 % 09/30/18 03:02 Glucose 110 mg/dL (65-100) H 09/30/18 03:02 Calcium 9.0 mg/dL (8.4-10.2) 09/30/18 03:02 < 0.20 mg/dL (0.1-1.2) 09/29/18 23:58 AST 12 units/L (5-40) 09/29/18 23:58 ALT 7 units/L (7-56) 09/29/18 23:58 59 units/L (35-129) 09/29/18 23:58 45 units/L (30-135) 09/30/18 00:40 CK-MB (CK-2) < 1.0 ng/mL (0.0-4.0) 09/30/18 00:40 CK-MB (CK-2) Rel Index 2.2 (0-4) 09/30/18 00:40 < 0.010 ng/mL (0.00-0.029) 09/30/18 03:02 6.7 g/dL (6.3-8.2) 09/29/18 23:58 4.0 g/dL (3.9-5) 09/29/18 23:58 1.5 % 09/29/18 23:58 Triglycerides 61 mg/dL (2-149) 09/30/18 03:02 Cholesterol 230 mg/dL (50-199) H 09/30/18 03:02 132 mg/dL (50-130) H 09/30/18 03:02 94 mg/dL (40-59) H 09/30/18 03:02 2.44 % 09/30/18 03:02 Assessment and Plan Assessment and plan: 68 year old woman with history of hypertension, diabetes, COPD comes emergency room with complaints of chest pain, pressure-like sensation intermittently for less than 5 minutes intensity 07/27, no radiation. Refused stress test on last admission, was scheduled follow-up with cardiology to do stress test outpatient but pain recurred so she came to the emergency room for evaluation. Physical exam significant for wheezing, agree with steroids, stress test, cardiology consult.
[2018-09-30 03:48] LABS: Basophils % (Auto) 0.6 % (0.0-1.8); Eosinophils # (Auto) 0.1 K/mm3 (0.0-0.4); Eosinophils % (Auto) 1.4 % (0.0-4.3); Hematocrit 39.2 % (30.3-42.9); Hemoglobin 12.7 gm/dl (10.1-14.3); Lymphocytes # (Auto) 2.7 K/mm3 (1.2-5.4); Mean Corpuscular HGB Conc 33 % (30-34); Mean Corpuscular Volume 79 fl (79-97); Monocytes # (Auto) 0.8 K/mm3 (0.0-0.8); Monocytes % (Auto) 9.7 % (0.0-7.3); Platelet Count 239 K/mm3 (140-440); Red Blood Count 4.99 M/mm3 (3.65-5.03); Red Cell Distribution Width 19.1 % (13.2-15.2)
[2018-09-30 04:05] LABS: BUN/Creatinine Ratio 24; Blood Urea Nitrogen 17 mg/dL (7-17); Chol/HDL Ratio 2.44 %; HDL Cholesterol 94 mg/dL (40-59); Hemolysis Index 6; LDL Cholesterol,Direct 132 mg/dL (50-130)
[2018-09-30] MEDS: SOLU-Medrol IV SCH ×3 (04:22→18:02)
[2018-09-30] MEDS ORDERED: PROVENTIL IH PRN ×3 (04:24→17:28)
[2018-09-30] MEDS ORDERED: NON-FORMULARY (Prednisone [Prednisone 10 Mg (6-Day Pack, 21 Tabs)] 10 MG) PO SCH (07:15)
[2018-09-30] MEDS ORDERED: LEXISCAN IV ONE ×2 (08:23→08:27)
[2018-09-30] MEDS ORDERED: LOVENOX SUB-Q SCH (10:00)
[2018-09-30] MEDS ORDERED: PROAIR IH SCH (10:00)
--- NOTE | 2018-09-30 10:19 | Event Note ---
Date: 09/30/18 Atypical chest pain MPI this admission - normal, LVEF 72% Echo - normal LVEF CXR - NAP Troponin - negative Advanced COPD on home oxygen Systemic Hypertension Type II DM Recommendations: No further cardiac work-up is needed for atypical CP We will sign off Please call back if needed
[2018-09-30] MEDS: COZAAR PO SCH (10:32)
[2018-09-30] MEDS: PROCARDIA XL PO SCH (10:32)
[2018-09-30] MEDS: LOVENOX SUB-Q SCH (10:33)
[2018-09-30] MEDS: LASIX PO SCH (10:33)
[2018-09-30] MEDS: PEPCID PO SCH ×2 (10:33→21:58)
--- NOTE | 2018-09-30 10:54 | Treadmill Report ---
INDICATION: Chest pain. ORDERING PHYSICIAN: Dr. Betsy Pollard. FINDINGS: There is no scintigraphic evidence of myocardial ischemia. The left ventricle is normal in size. There is normal wall motion and wall thickening. The left ventricular ejection fraction is measured at 72%. CONCLUSION: Normal perfusion scan. JOB# [id number] [email or web address]/[email or web address]
[2018-09-30] MEDS ORDERED: K-DUR PO SCH (11:00)
[2018-09-30] MEDS: ATROVENT IH SCH ×5 (12:28→20:38)
--- NOTE | 2018-09-30 14:06 | Consultation ---
History of Present Illness Consult date: 09/30/18 Requesting physician: RODRIGUEZ WALSH Reason for consult: COPD History of present illness: PULMONARY CONSULT NOTE (Full dictation # [id number]) Please see dictated notes for full details Past History Past Medical History: COPD, hypertension, hyperlipidemia Past Surgical History: hysterectomy Social history: no significant social history Family history: no significant family history Medications and Allergies Allergies Allergy/AdvReac Type Severity Reaction Status Date / Time No Known Allergies Allergy Unverified 10/29/14 10:06 Home Medications Medication Instructions Recorded Confirmed Last Taken Type Famotidine [Pepcid] 20 mg PO BID 08/24/17 09/30/18 08/29/18 History Furosemide [Lasix TAB] 40 mg PO QDAY #30 tablet 11/29/17 09/30/18 08/29/18 Rx ALBUTEROL Inhaler(NF) [VENTOLIN 2 puff IH QID 08/29/18 09/30/18 08/29/18 History Inhaler(NF)] Potassium Chloride [Klor-Con M20] 20 meq PO 3XW 08/29/18 09/30/18 08/28/18 History metFORMIN [Glucophage] 2 tab PO BID 08/29/18 09/30/18 09/29/18 History 2100 ALBUTEROL NEB's [Proventil 0.083% 2.5 mg IH QID PRN #90 nebu 09/01/18 09/30/18 Unknown Rx NEBS] Ipratropium [Atrovent NEB] 0.5 mg IH QID #90 nebu 09/01/18 09/30/18 Unknown Rx Losartan [Cozaar] 50 mg PO QDAY #30 tablet 09/01/18 09/30/18 Unknown Rx Prednisone [predniSONE 10 mg 10 mg PO .TAPER #1 tab.ds.pk 09/01/18 09/30/18 Unknown Rx (6-Day Pack, 21 Tabs)] NIFEdipine XL [Procardia Xl] 60 mg PO QDAY 09/30/18 09/30/18 Unknown History Active Meds: Active Medications Albuterol (Proventil) 5 mg IH Q4HR PRN PRN Reason: Shortness Of Breath Aspirin (Ecotrin) 325 mg PO QDAY NANCY Enoxaparin Sodium (Lovenox) 40 mg SUB-Q QDAY@1000 NANCY Last Admin: 09/30/18 10:33 Dose: 40 mg Documented by: Famotidine (Pepcid) 20 mg PO BID [facility] Last Admin: 09/30/18 10:33 Dose: 20 mg Documented by: Furosemide (Lasix) 40 mg PO QDAY [facility] Last Admin: 09/30/18 10:33 Dose: 40 mg Documented by: Hydralazine HCl (Apresoline) 10 mg IV Q6H PRN PRN Reason: FOR SBP > target Ipratropium [place] (Atrovent) 0.5 mg IH QID [facility] Last Admin: 09/30/18 13:36 Dose: 0.5 mg Documented by: Losartan Potassium (Cozaar) 50 mg PO QDAY [facility] Last Admin: 09/30/18 10:32 Dose: 50 mg Documented by: Metformin HCl (Glucophage) 1,000 mg PO BID [facility] Methylprednisolone Sodium Succinate (Solu-Medrol) 80 mg IV Q6HR [facility] Last Admin: 09/30/18 12:23 Dose: 80 mg Documented by: Nifedipine (Procardia Xl) 60 mg PO QDAY [facility] Last Admin: 09/30/18 10:32 Dose: 60 mg Documented by: Potassium Chloride (K-Dur) 20 meq PO MoWeFr [facility] Last Admin: 09/30/18 12:24 Dose: 20 meq Documented by: Sodium Chloride (Sodium Chloride Flush Syringe 10 Ml) 10 ml IV PRN PRN PRN Reason: LINE FLUSH Physical Examination Vital signs: Vital Signs Temp Pulse Resp BP Pulse Ox 98.4 F 85 18 126/64 93 09/29/18 22:46 09/29/18 22:46 09/29/18 22:46 09/29/18 22:46 09/29/18 22:46 Results - Laboratory Findings CBC and BMP: 09/30/18 03:02 09/30/18 03:02 PT/INR, D-dimer PT 12.3 Sec. (12.2-14.9) 09/30/18 00:40 INR 0.87 (0.87-1.13) 09/30/18 00:40 Abnormal lab findings: Abnormal Labs 09/29/18 09/29/18 09/30/18 23:58 23:58 03:02 MCV 78 L MCH 26 L 26 L RDW 19.2 H 19.1 H [place] % (Auto) 9.8 H 9.7 H Glucose 104 H POC Glucose Cholesterol LDL Cholesterol Direct HDL Cholesterol 09/30/18 09/30/18 03:02 10:02 MCV MCH RDW [place] % (Auto) Glucose 110 H POC Glucose 136 H Cholesterol 230 H LDL Cholesterol Direct 132 H HDL Cholesterol 94 H
[2018-09-30] MEDS: GLUCOPHAGE PO SCH ×2 (14:30→21:58)
[2018-09-30] MEDS ORDERED: ATIVAN IV PRN (14:41)
--- NOTE | 2018-09-30 14:43 | Progress Note ---
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 The pressure like sensation returned in the chest. Patient states that she was admitted a few weeks ago with the same symptoms, she was referred to cardiology for evaluation, she had seen the cardiology on the 09/27 and she is scheduled for a follow-up stress test in the print producer's office in the morning. Patient denies any dizziness, denies headache, she denies cough, request chest congestions, she denies palpitation, denies diaphoresis. Patient was seen in the ER, she was treated for acute respiratory distress, COPD exacerbation and chest pain, she is admitted for continuous management of her symptoms. Acute on chronic combined respiratory failure, continue O2 support, Pulmonary Consult, taper steroids, JACK, LABA AE COPD causing the above with advanced COPD: Continue Abx, Acute Bronchitis/Fibrosis: Continue abx, will descalate as patients improve Chest pains: secondary costochronditis. Stress test done and negative. Cardiology Hypertension: low salt diet, continue norvasc and ARB tobacco dependence history: encouragement given Type 2 diabetes mellitus: ssi, accuchecks and metformin GERD: continue Pepcid Anxiety: Per pt since universal grinder operator told her this is endstage she has been experience anxiety, will start ativan prn History Interval history: Patient seen and examined, still with shortness of breath but improving some. The patient reports that she understands she may be endstage, also did not want home health initially. Hospitalist Physical - Physical exam Narrative exam: General appearance: Present: mild distress - EENT Eyes: Present: EOM intact ENT: hearing intact - Neck Neck: Present: supple - Respiratory Respiratory effort: normal Respiratory: bilateral: diminished - Cardiovascular Rhythm: regular Heart Sounds: Present: S1 & S2 - Extremities Extremities: no ischemia Peripheral Pulses: within normal limits - Abdominal General gastrointestinal: Present: deferred, non-tender - Integumentary Integumentary: Present: warm, dry - Musculoskeletal Musculoskeletal: generalized weakness - Psychiatric Psychiatric: cooperative - Neurologic Neurologic: moves all extremities - Constitutional Vitals: Temp Pulse Resp BP Pulse Ox 98.3 F 80 20 119/51 92 09/30/18 05:21 09/30/18 12:58 09/30/18 05:21 09/30/18 10:32 09/30/18 05:21 General appearance: Present: mild distress Results - Labs CBC & Chem 7: 09/30/18 03:02 09/30/18 03:02 Labs: Laboratory Last Values WBC 7.7 K/mm3 (4.5-11.0) 09/30/18 03:02 RBC 4.99 M/mm3 (3.65-5.03) 09/30/18 03:02 Hgb 12.7 gm/dl (10.1-14.3) 09/30/18 03:02 Hct 39.2 % (30.3-42.9) 09/30/18 03:02 MCV 79 fl (79-97) 09/30/18 03:02 MCH 26 pg (28-32) L 09/30/18 03:02 MCHC 33 % (30-34) 09/30/18 03:02 RDW 19.1 % (13.2-15.2) H 09/30/18 03:02 Plt Count 239 K/mm3 (140-440) 09/30/18 03:02 Lymph % (Auto) 35.0 % (13.4-35.0) 09/30/18 03:02 [place] % (Auto) 9.7 % (0.0-7.3) H 09/30/18 03:02 Eos % (Auto) 1.4 % (0.0-4.3) 09/30/18 03:02 Baso % (Auto) 0.6 % (0.0-1.8) 09/30/18 03:02 Lymph # 2.7 K/mm3 (1.2-5.4) 09/30/18 03:02 [place] # 0.8 K/mm3 (0.0-0.8) 09/30/18 03:02 Eos # 0.1 K/mm3 (0.0-0.4) 09/30/18 03:02 Baso # 0.0 K/mm3 (0.0-0.1) 09/30/18 03:02 Seg Neutrophils % 53.3 % (40.0-70.0) 09/30/18 03:02 Seg Neutrophils # 4.1 K/mm3 (1.8-7.7) 09/30/18 03:02 PT 12.3 Sec. (12.2-14.9) 09/30/18 00:40 INR 0.87 (0.87-1.13) 09/30/18 00:40 APTT 26.9 Sec. (24.2-36.6) 09/30/18 00:40 Sodium 139 mmol/L (137-145) 09/30/18 03:02 Potassium 3.9 mmol/L (3.6-5.0) 09/30/18 03:02 Chloride 99.7 mmol/L (98-107) 09/30/18 03:02 Carbon Dioxide 24 mmol/L (22-30) 09/30/18 03:02 19 mmol/L 09/30/18 03:02 BUN 17 mg/dL (7-17) 09/30/18 03:02 0.7 mg/dL (0.7-1.2) 09/30/18 03:02 Estimated GFR > 60 ml/min 09/30/18 03:02 24 % 09/30/18 03:02 Glucose 110 mg/dL (65-100) H 09/30/18 03:02 POC Glucose 136 (70-105) H 09/30/18 10:02 Calcium 9.0 mg/dL (8.4-10.2) 09/30/18 03:02 < 0.20 mg/dL (0.1-1.2) 09/29/18 23:58 AST 12 units/L (5-40) 09/29/18 23:58 ALT 7 units/L (7-56) 09/29/18 23:58 59 units/L (35-129) 09/29/18 23:58 45 units/L (30-135) 09/30/18 00:40 CK-MB (CK-2) < 1.0 ng/mL (0.0-4.0) 09/30/18 00:40 CK-MB (CK-2) Rel Index 2.2 (0-4) 09/30/18 00:40 < 0.010 ng/mL (0.00-0.029) 09/30/18 13:00 6.7 g/dL (6.3-8.2) 09/29/18 23:58 4.0 g/dL (3.9-5) 09/29/18 23:58 1.5 % 09/29/18 23:58 Triglycerides 61 mg/dL (2-149) 09/30/18 03:02 Cholesterol 230 mg/dL (50-199) H 09/30/18 03:02 132 mg/dL (50-130) H 09/30/18 03:02 94 mg/dL (40-59) H 09/30/18 03:02 2.44 % 09/30/18 03:02 Active Medications - Current Medications Current Medications: Generic Name Dose Route Start Last Admin Trade Name Freq PRN Reason Stop Dose Admin Albuterol 5 mg 09/30/18 04:24 Proventil IH Q4HR PRN Shortness Of Breath Aspirin 325 mg 10/01/18 10:00 Ecotrin PO QDAY NANCY Enoxaparin Sodium 40 mg 09/30/18 10:00 09/30/18 10:33 Lovenox SUB-Q 40 mg QDAY@1000 NANCY Administration Famotidine 20 mg 09/30/18 10:00 09/30/18 10:33 Pepcid PO 20 mg BID NANCY Administration Furosemide 40 mg 09/30/18 10:00 09/30/18 10:33 Lasix PO 40 mg QDAY NANCY Administration Hydralazine HCl 10 mg 09/30/18 02:29 Apresoline IV Q6H PRN FOR SBP > target Ipratropium [place] 0.5 mg 09/30/18 10:00 09/30/18 13:36 Atrovent IH 0.5 mg QID NANCY Administration Lorazepam 1 mg 09/30/18 14:41 Ativan IV Q4H PRN Anxiety Losartan Potassium 50 mg 09/30/18 10:00 09/30/18 10:32 Cozaar PO 50 mg QDAY NANCY Administration Metformin HCl 1,000 mg 09/30/18 14:00 09/30/18 14:30 Glucophage PO 1,000 mg BID NANCY Administration Methylprednisolone Sodium Succinate 80 mg 09/30/18 04:22 09/30/18 12:23 Solu-Medrol IV 80 mg Q6HR NANCY Administration Nifedipine 60 mg 09/30/18 10:00 09/30/18 10:32 Procardia Xl PO 60 mg QDAY NANCY Administration Potassium Chloride 20 meq 09/30/18 11:00 09/30/18 12:24 K-Dur PO 20 meq MoWeFr NANCY Administration Sodium Chloride 10 ml 09/30/18 02:29 Sodium Chloride Flush Syringe 10 Ml IV PRN PRN LINE FLUSH
[2018-09-30] MEDS: ZITHROMAX PO SCH (18:02)
[2018-09-30] MEDS: PULMICORT IH SCH (20:37)
[2018-09-30] MEDS: BROVANA NEBU IH SCH (20:37)
--- NOTE | 2018-09-30 22:51 | Consultation ---
PULMONARY CONSULT NOTE. CONSULTING PHYSICIAN: Jorge Carvajal MD REASON FOR CONSULTATION: Acute COPD exacerbation. CHIEF COMPLAINT AND HISTORY OF PRESENT ILLNESS: The patient is a 68-year-old -[place]ian female with past medical history indeed significant for home oxygen-dependent chronic obstructive lung disease at baseline 3 liters nasal cannula, clinic patient of Dr. Josue, presented to the hospital complaining of shortness of breath. She stated that she felt a tightness in her chest, felt like she could not get air in and out. Denied any real chest pain. She denied any leg swelling. She stated that she had been using her baseline bronchodilator treatments and did not run out of any. She denied any cough or hemoptysis. She denied any fevers or chills. Because she felt like she could very soon be in the throes of her severe COPD exacerbation, she came into the Emergency Room. She was evaluated in the Emergency Room and ultimately admitted with a diagnosis of an acute COPD exacerbation and chest pain, possible unstable angina. She also was being evaluated by her gliding pilot instructor and was scheduled for stress test actually today, but on an outpatient basis. We are asked to assist with management. When I stopped by to see her, she was sitting in bed. She had just done a stress test earlier, feeling a little bit better. Denied vomiting or overt aspiration. Now with regard to tobacco use, she has a 10+ pack year, now remote tobacco smoking history. She really has as much of the history of presentation as I have. She denied any new leg pain or swelling either unilaterally or bilaterally or any suggestion of deep venous thrombosis. PAST MEDICAL HISTORY: Diabetes, hypertension, COPD. She is obese. PAST SURGICAL HISTORY: She is status post hysterectomy. MEDICATIONS: She was on at the time I stopped by to see were reviewed. Pertinent medications included the following: She was on albuterol treatments 5 mg q. 4 hours p.r.n. shortness of breath, aspirin 325 mg p.o. daily, Lovenox 40 mg subcutaneous daily, Pepcid 20 mg p.o. b.i.d., Lasix 40 mg p.o. daily, p.r.n. hydralazine 10 mg IV q. 6 hours p.r.n. elevated blood pressure. She is on Atrovent 0.5 mg nebulized q.i.d. scheduled. She is on Ativan 1 mg IV q. 4 hours p.r.n. anxiety. She is on Cozaar 50 mg p.o. daily; metformin 1 gram p.o. b.i.d.; Solu-Medrol 80 mg IV q. 6 hours scheduled; Procardia 60 mg p.o. daily; potassium chloride 20 mEq p.o. Wednesday, Wednesday and Wednesday scheduled. ALLERGIES: No known drug allergies. DIET: Obese lady. Denies acute weight loss or gain in the preceding few weeks to months. FAMILY AND SOCIAL HISTORY: Lives in the community. 10+ pack year tobacco, remote smoking history. Denies alcohol or illicit drug use or abuse. Family history otherwise noncontributory. REVIEW OF SYSTEMS: No loss of consciousness. No new onset seizures. No new onset focal weakness. Denies gross hematochezia or melena. Denies gross hematuria or dysuria. No hematemesis. No hemoptysis. Denies palpitations, denies heat or cold intolerance. Denies polydipsia or polyuria. She did have some dyspnea on exertion. Complete 13-system review of systems obtained. Pertinent positives and/or negatives as in body of history above, otherwise noncontributory. PHYSICAL EXAMINATION: VITAL SIGNS: At presentation, she was afebrile, temperature 98.4 degrees Fahrenheit with a pulse of 85, respiratory rate of 18, blood pressure 126/64, O2 sats were 93%, inspired oxygen concentration was not recorded. When I stopped by to see her, O2 sats were 95% on 3 liters nasal cannula. GENERAL: She is an elderly looking obese -[place]vian female. Talking to me, slight interrupted sentences with mildly increased respiratory effort, no accessory muscle use. HEAD, EYES, EARS, NOSE AND THROAT: Normocephalic, atraumatic. She is anicteric. No conjunctival erythema. Oropharynx is moist. It is a Mallampati #4. Oropharynx, no gross jugular venous distention, no thyromegaly. Grossly, no palpable lymph nodes in the supraclavicular or submandibular lymph node chains. LUNGS: Auscultation of both lung macdonald significant mostly for diminished bilateral breath sounds with a prolonged expiratory phase. No active wheezing, no rhonchi. HEART: Heart sounds 1 and 2 are heard. They were regular in rate and rhythm at the time of my evaluation without overt rubs or murmurs. ABDOMEN: Soft, full, protuberant. Bowel sounds are positive, nontender. No palpable hepatosplenomegaly. EXTREMITIES: Without overt digital clubbing or cyanosis. Trace pedal edema. Pedal pulses are palpable bilaterally and strong. NEUROLOGIC: Pupils are equal, round, about 4 mm, reactive to light. Extraocular muscle movements are intact. She moves all 4 extremities spontaneously. SKIN: Of normal turgor without overt cellulitis or rash. LABORATORY DATA: From my review are as follows: White cell count at admission 7700 with a hemoglobin of 12.7, hematocrit of 39.2, platelet count of 239. No manual differential. INR 0.87. Serum sodium 139, potassium 3.9, chloride 100, bicarbonate 24, BUN 17, creatinine 0.7, glucose 110. Cardiac enzymes within normal limits. LDL cholesterol elevated at 132. No microbiology studies from my review. Chest x-ray was done at presentation. I have reviewed this chest x-ray. I have also reviewed the radiologist's interpretation and essentially, hyperinflation with flattening of the right hemidiaphragm. Taking the hyperinflation into consideration, she has borderline cardiomegaly. She has chronic looking plate-like atelectasis, likely in the bases of the lungs or fibrosis. No gross pneumothorax, no gross bony fracture, and no focal infiltrates. ASSESSMENT AND PLAN: 1. Acute on chronic hypoxemic respiratory failure. 2. Acute chronic obstructive pulmonary disease exacerbation. 3. Cardiomyopathy. 4. Obesity. 5. Chest pain at presentation. 6. Diabetes type 2. 7. Hyperlipidemia. PLAN: She is having an acute coronary syndrome workup done that is appropriate. We will follow the results of the stress test. We will treat her as an acute COPD exacerbation. With her chronic severe baseline COPD, I will empirically treat her with a quick course of antibiotic therapy. I will go with azithromycin and perhaps 3 days of Rocephin, but certainly, azithromycin because of its anti-inflammatory properties and beneficial effects with chronic COPD. I will also be starting her on long-acting bronchodilators in the form of Brovana as well as inhaled corticosteroids, Pulmicort. We will taper the systemic steroids. I will drop it down to 60 mg IV q. 8 hours at this time. She is really not making any sputum at this point, we will just treat her empirically without cultures. Oxygen will be weaned to keep sats greater than or equal to over 90%. I have told her that she will benefit from a sleep study. In the meantime, bilevel positive airway pressure ventilation therapy will be offered on a p.r.n. basis. She is appropriately on DVT prophylaxis as well as GI prophylaxis. The gentle diuresis should continue per the gliding pilot instructor. Flu and pneumonia vaccination will be addressed per protocol. Thank you very much for the consult Dr. Carvajal. We will follow along. We will make further recommendations as the picture progresses/becomes clearer. JOB# [id number] LATHA/NTS
[2018-09-30] MEDS ORDERED: ATIVAN PO PRN ×2 (23:22→23:32)
[2018-10-01] MEDS: SOLU-Medrol IV SCH ×4 (00:03→17:16)
--- NOTE | 2018-10-01 07:01 | Progress Note ---
Assessment and Plan Acute on chronic combined respiratory failure, AE COPD causing the above with advanced COPD Tobacco use disorder/Nicotine dependence Acute Bronchitis/Fibrosis Chest pain, negative stress test Hypertension Type 2 diabetes mellitus GERD: Anxiety -Supplemental oxygen to keep O2 sats 88-90% -Oxygen restrictive strategies -Steroids, tapering dosing -Bronchodilators -Anxieolytics -Glycemic control, target blood glucose <180mg/dL -Continue chronic home medications -Smoking cessation counseling Out patient follow up with Pulmonary Oxygen safety discussed Anxieolytics Discharge planning Subjective Date of service: 10/01/18 Interval history: Patient is seen today for: Acute on chronic combined respiratory failure;AE COPD ;Advanced COPD: Seen and examined at bedside; 24hour events reviewed; nursing and respiratory care staff consulted; no adverse overnight events reported to me; Breathing is improving. Denies any fevers or chills, no nausea or vomiting. had a coughing spell overnight which has resolved Objective - Exam Narrative Exam: General appearance: Present: mild distress - EENT Eyes: Present: EOM intact ENT: hearing intact - Neck Neck: Present: supple - Respiratory Respiratory effort: normal Respiratory: bilateral: diminished - Cardiovascular Rhythm: regular Heart Sounds: Present: S1 & S2 - Extremities Extremities: no ischemia Peripheral Pulses: within normal limits - Abdominal General gastrointestinal: Present: deferred, non-tender - Integumentary Integumentary: Present: warm, dry - Musculoskeletal Musculoskeletal: generalized weakness - Psychiatric Psychiatric: cooperative - Neurologic Neurologic: moves all extremities Vital Signs - 12hr 09/30/18 09/30/18 09/30/18 19:30 20:39 20:43 Temperature 98.1 F Pulse Rate 91 H Pulse Rate [ 83 Anterior Bilateral Throughout] Respiratory 16 Rate Respiratory 20 Rate [Anterior Bilateral Throughout] Blood Pressure 105/65 O2 Sat by Pulse 89 94 Oximetry 09/30/18 09/30/18 10/01/18 20:59 23:06 04:05 Temperature 97.9 F 98.5 F Pulse Rate 99 H 100 H Pulse Rate [ 82 Anterior Bilateral Throughout] Respiratory 17 18 Rate Respiratory 20 Rate [Anterior Bilateral Throughout] Blood Pressure 130/69 122/62 O2 Sat by Pulse 93 90 Oximetry CBC and BMP: 09/30/18 03:02 09/30/18 03:02 ABG, PT/INR, D-dimer: PT/INR, D-dimer PT 12.3 Sec. (12.2-14.9) 09/30/18 00:40 INR 0.87 (0.87-1.13) 09/30/18 00:40 Abnormal lab findings: Abnormal Labs 09/29/18 09/29/18 09/30/18 23:58 23:58 03:02 MCV 78 L MCH 26 L 26 L RDW 19.2 H 19.1 H [place] % (Auto) 9.8 H 9.7 H Glucose 104 H POC Glucose Cholesterol LDL Cholesterol Direct HDL Cholesterol 09/30/18 09/30/18 09/30/18 03:02 10:02 12:35 MCV MCH RDW [place] % (Auto) Glucose 110 H POC Glucose 136 H 167 H Cholesterol 230 H LDL Cholesterol Direct 132 H HDL Cholesterol 94 H 09/30/18 09/30/18 16:32 20:47 MCV MCH RDW [place] % (Auto) Glucose POC Glucose 178 H 180 H Cholesterol LDL Cholesterol Direct HDL Cholesterol
[2018-10-01] MEDS: PULMICORT IH SCH ×2 (07:32→19:46)
[2018-10-01] MEDS: ATROVENT IH SCH ×3 (07:32→19:46)
[2018-10-01] MEDS: BROVANA NEBU IH SCH ×2 (07:32→19:46)
[2018-10-01] MEDS: ECOTRIN PO SCH (10:06)
[2018-10-01] MEDS: GLUCOPHAGE PO SCH ×2 (10:06→21:36)
[2018-10-01] MEDS: COZAAR PO SCH (10:06)
[2018-10-01] MEDS: ZITHROMAX PO SCH (10:07)
[2018-10-01] MEDS: PROCARDIA XL PO SCH (10:07)
[2018-10-01] MEDS: LASIX PO SCH (10:07)
[2018-10-01] MEDS: PEPCID PO SCH ×2 (10:07→21:36)
[2018-10-01] MEDS: LOVENOX SUB-Q SCH (10:07)
--- NOTE | 2018-10-01 12:22 | Progress Note ---
Assessment and Plan Assessment and plan: Patient is a 68 yo woman with a history of chronic combined respiratory failure due to end-stage COPD on 3 liter home O2, type 2 DM, prior tobacco dependency and GERD who presents to [facility] ED with severe progressive worsening intermittent SOB was recently discharged from the hospital and on her way to outpatient cardiology evaluation. The pressure like sensation returned in the chest. Patient states that she was admitted a few weeks ago with the same symptoms, she was referred to cardiology for evaluation, she had seen the cardiology on the 09/27 and she is scheduled for a follow-up stress test in the pelts skinner's office in the morning. Patient denies any dizziness, denies headache, she denies cough, request chest congestions, she denies palpitation, denies diaphoresis. Patient was seen in the ER, she was treated for acute respiratory distress, COPD exacerbation and chest pain, she is admitted for continuous management of her symptoms. Acute on chronic combined respiratory failure, continue O2 support, Pulmonary Consult, taper steroids, JACK, LABA AE COPD causing the above with advanced COPD: Continue Abx, Acute Bronchitis/Fibrosis: Continue abx, will descalate as patients improve Chest pains: secondary costochronditis. Stress test done and negative. Cough: Nocturnal cough leading to panic and anxiety, will start on hycodan prn Hypertension: low salt diet, continue norvasc and ARB tobacco dependence history: encouragement given Type 2 diabetes mellitus: ssi, accuchecks and metformin GERD: continue Pepcid Anxiety: Per pt since fusion analyst told her this is endstage she has been experience anxiety, did well with ativan prn. History Interval history: Patient seen and examined, reports some improvement today. Encouraged to ambulate some more. She states she had coughing episode last night which has since resolved Hospitalist Physical - Physical exam Narrative exam: General appearance: Present: mild distress - EENT Eyes: Present: EOM intact ENT: hearing intact - Neck Neck: Present: supple - Respiratory Respiratory effort: normal Respiratory: bilateral: diminished - Cardiovascular Rhythm: regular Heart Sounds: Present: S1 & S2 - Extremities Extremities: no ischemia Peripheral Pulses: within normal limits - Abdominal General gastrointestinal: Present: deferred, non-tender - Integumentary Integumentary: Present: warm, dry - Musculoskeletal Musculoskeletal: generalized weakness - Psychiatric Psychiatric: cooperative - Neurologic Neurologic: moves all extremities - Constitutional Vitals: Temp Pulse Resp BP Pulse Ox 97.5 F L 110 H 22 128/73 95 10/01/18 12:17 10/01/18 12:17 10/01/18 12:17 10/01/18 12:17 10/01/18 12:17 General appearance: Present: mild distress Results - Labs CBC & Chem 7: 09/30/18 03:02 09/30/18 03:02 Labs: Laboratory Last Values WBC 7.7 K/mm3 (4.5-11.0) 09/30/18 03:02 RBC 4.99 M/mm3 (3.65-5.03) 09/30/18 03:02 Hgb 12.7 gm/dl (10.1-14.3) 09/30/18 03:02 Hct 39.2 % (30.3-42.9) 09/30/18 03:02 MCV 79 fl (79-97) 09/30/18 03:02 MCH 26 pg (28-32) L 09/30/18 03:02 MCHC 33 % (30-34) 09/30/18 03:02 RDW 19.1 % (13.2-15.2) H 09/30/18 03:02 Plt Count 239 K/mm3 (140-440) 09/30/18 03:02 Lymph % (Auto) 35.0 % (13.4-35.0) 09/30/18 03:02 Delta % (Auto) 9.7 % (0.0-7.3) H 09/30/18 03:02 Eos % (Auto) 1.4 % (0.0-4.3) 09/30/18 03:02 Baso % (Auto) 0.6 % (0.0-1.8) 09/30/18 03:02 Lymph # 2.7 K/mm3 (1.2-5.4) 09/30/18 03:02 Delta # 0.8 K/mm3 (0.0-0.8) 09/30/18 03:02 Eos # 0.1 K/mm3 (0.0-0.4) 09/30/18 03:02 Baso # 0.0 K/mm3 (0.0-0.1) 09/30/18 03:02 Seg Neutrophils % 53.3 % (40.0-70.0) 09/30/18 03:02 Seg Neutrophils # 4.1 K/mm3 (1.8-7.7) 09/30/18 03:02 PT 12.3 Sec. (12.2-14.9) 09/30/18 00:40 INR 0.87 (0.87-1.13) 09/30/18 00:40 APTT 26.9 Sec. (24.2-36.6) 09/30/18 00:40 Sodium 139 mmol/L (137-145) 09/30/18 03:02 Potassium 3.9 mmol/L (3.6-5.0) 09/30/18 03:02 Chloride 99.7 mmol/L (98-107) 09/30/18 03:02 Carbon Dioxide 24 mmol/L (22-30) 09/30/18 03:02 19 mmol/L 09/30/18 03:02 BUN 17 mg/dL (7-17) 09/30/18 03:02 0.7 mg/dL (0.7-1.2) 09/30/18 03:02 Estimated GFR > 60 ml/min 09/30/18 03:02 24 % 09/30/18 03:02 Glucose 110 mg/dL (65-100) H 09/30/18 03:02 POC Glucose 146 (70-105) H 10/01/18 11:23 Calcium 9.0 mg/dL (8.4-10.2) 09/30/18 03:02 < 0.20 mg/dL (0.1-1.2) 09/29/18 23:58 AST 12 units/L (5-40) 09/29/18 23:58 ALT 7 units/L (7-56) 09/29/18 23:58 59 units/L (35-129) 09/29/18 23:58 45 units/L (30-135) 09/30/18 00:40 CK-MB (CK-2) < 1.0 ng/mL (0.0-4.0) 09/30/18 00:40 CK-MB (CK-2) Rel Index 2.2 (0-4) 09/30/18 00:40 < 0.010 ng/mL (0.00-0.029) 09/30/18 13:00 6.7 g/dL (6.3-8.2) 09/29/18 23:58 4.0 g/dL (3.9-5) 09/29/18 23:58 1.5 % 09/29/18 23:58 Triglycerides 61 mg/dL (2-149) 09/30/18 03:02 Cholesterol 230 mg/dL (50-199) H 09/30/18 03:02 132 mg/dL (50-130) H 09/30/18 03:02 94 mg/dL (40-59) H 09/30/18 03:02 2.44 % 09/30/18 03:02 Active Medications - Current Medications Current Medications: Generic Name Dose Route Start Last Admin Trade Name Freq PRN Reason Stop Dose Admin Albuterol 2.5 mg 09/30/18 17:28 Proventil IH Q4HR PRN Shortness Of Breath Arformoterol Tartrate 15 mcg 09/30/18 20:00 10/01/18 07:32 Brovana Nebu IH 15 mcg Q12HRT NANCY Administration Aspirin 325 mg 10/01/18 10:00 10/01/18 10:06 Ecotrin PO 325 mg QDAY NANCY Administration Azithromycin 500 mg 09/30/18 18:00 10/01/18 10:07 Zithromax PO 500 mg QDAY NANCY Administration Budesonide 0.5 mg 09/30/18 20:00 10/01/18 07:32 Pulmicort IH 0.5 mg Q12HRT NANCY Administration Enoxaparin Sodium 40 mg 09/30/18 10:00 10/01/18 10:07 Lovenox SUB-Q 40 mg QDAY@1000 NANCY Administration Famotidine 20 mg 09/30/18 10:00 10/01/18 10:07 Pepcid PO 20 mg BID NANCY Administration Furosemide 40 mg 09/30/18 10:00 10/01/18 10:07 Lasix PO 40 mg QDAY NANCY Administration Hydralazine HCl 10 mg 09/30/18 02:29 Apresoline IV Q6H PRN FOR SBP > target Ipratropium [place] 0.5 mg 09/30/18 20:00 10/01/18 07:32 Atrovent IH 0.5 mg TIDRT NANCY Administration Lorazepam 1 mg 09/30/18 23:32 09/30/18 23:54 Ativan PO 1 mg Q4H PRN Administration anxiety Losartan Potassium 50 mg 09/30/18 10:00 10/01/18 10:06 Cozaar PO 50 mg QDAY NANCY Administration Metformin HCl 1,000 mg 09/30/18 14:00 10/01/18 10:06 Glucophage PO 1,000 mg BID NANCY Administration Methylprednisolone Sodium Succinate 60 mg 09/30/18 18:00 10/01/18 10:10 Solu-Medrol IV 60 mg Q8H NANCY Administration Nifedipine 60 mg 09/30/18 10:00 10/01/18 10:07 Procardia Xl PO 60 mg QDAY NANCY Administration Potassium Chloride 20 meq 09/30/18 11:00 09/30/18 12:24 K-Dur PO 20 meq MoWeFr NANCY Administration Sodium Chloride 10 ml 09/30/18 02:29 Sodium Chloride Flush Syringe 10 Ml IV PRN PRN LINE FLUSH
[2018-10-01] MEDS ORDERED: ZOFRAN IV PRN (14:47)
[2018-10-02] MEDS: SOLU-Medrol IV SCH ×2 (02:50→09:55)
[2018-10-02] MEDS: PULMICORT IH SCH (07:56)
[2018-10-02] MEDS: BROVANA NEBU IH SCH (07:56)
[2018-10-02] MEDS: ATROVENT IH SCH (07:56)
[2018-10-02 08:01] VITALS: BP 109/55
--- NOTE | 2018-10-02 08:31 | Discharge Summary ---
Providers - Providers Date of Admission: 09/30/18 04:46 Attending physician: RODRIGUEZ WALSH MD 09/30/18 Consult to Cardiac Rehabilitation [CONS] Routine Reason For Exam: Phase I 09/30/18 09:59 Consult to Physician [CONS] Routine Comment: Consulting Provider: NIRMALA JAMESON Physician Instructions: Reason For Exam: copd exacerbation Primary care physician: JESUS CLANCY Hospitalization Reason for admission: copd exacerabation Condition: Stable Hospital course: Patient is a 68 yo woman with a history of chronic combined respiratory failure due to end-stage COPD on 3 liter home O2, type 2 DM, prior tobacco dependency and GERD who presents to [facility] ED with severe progressive worsening intermittent SOB was recently discharged from the hospital and on her way to outpatient cardiology evaluation. The pressure like sensation returned in the chest. Patient states that she was admitted a few weeks ago with the same symptoms, she was referred to cardiology for evaluation, she had seen the cardiology on the 09/27 and she is scheduled for a follow-up stress test in the certified recreational therapist's office in the morning. Patient denies any dizziness, denies headache, she denies cough, request chest congestions, she denies palpitation, denies diaphoresis. Patient was seen in the ER, she was treated for acute respiratory distress, COPD exacerbation and chest pain, she is admitted for continuous management of her symptoms. Patient has endstage COPD, she reports that sometimes combined with panic associated with difficulty breathing spirals down prompting rehospitalization. She underwent a stress test that was negative for acute ischemia Ativan was introduced and good cough reduction medication and the patient improved Discharge Diagnosis Acute on chronic combined respiratory failure AE COPD causing the above with advanced COPD Acute Bronchitis/Fibrosis Chest pains Cough Hypertension tobacco dependence Type 2 diabetes mellitus GERD Anxiety Disposition: [id number] HOME [facility]ER [facility] Time spent for discharge: 35 mins Core Measure Documentation - Palliative Care Palliative Care/ Comfort Measures: Not Applicable - Core Measures Any of the following diagnoses?: none Exam - Physical Exam Narrative exam: General appearance: Present: mild distress at baseline - EENT Eyes: Present: EOM intact ENT: hearing intact - Neck Neck: Present: supple - Respiratory Respiratory effort: normal Respiratory: bilateral: diminished - Cardiovascular Rhythm: regular Heart Sounds: Present: S1 & S2 - Extremities Extremities: no ischemia Peripheral Pulses: within normal limits - Abdominal General gastrointestinal: Present: deferred, non-tender - Integumentary Integumentary: Present: warm, dry - Musculoskeletal Musculoskeletal: generalized weakness - Psychiatric Psychiatric: cooperative - Neurologic Neurologic: moves all extremities - Constitutional Vitals: Temp Pulse Resp BP Pulse Ox 97.6 F 61 18 109/55 92 10/02/18 07:59 10/02/18 08:04 10/02/18 08:04 10/02/18 07:59 10/02/18 07:59 Plan Activity: advance as tolerated, up only with assistance Diet: low fat, diabetic Special Instructions: record daily weights, record daily BP diary, record blood sugar diary Follow up with: JESUS CLANCY MD [Primary Care Provider] - 3-5 Days NIRMALA JAMESON MD [Staff Physician] - 7 Days Forms: Discharge Signature Page Prescriptions: LORazepam [Ativan] 1 mg PO BID PRN #30 tablet PRN Reason: anxiety Prednisone [predniSONE 10 mg (6-Day Pack, 21 Tabs)] 10 mg PO .TAPER #1 tab.ds.pk Benzonatate [Tessalon Perles] 100 mg PO Q8HR #30 capsule Azithromycin [Zithromax TAB] 250 mg PO QDAY #5 tablet
[2018-10-02] MEDS: GLUCOPHAGE PO SCH (09:55)
[2018-10-02] MEDS: ECOTRIN PO SCH (09:55)
[2018-10-02] MEDS: LASIX PO SCH (09:55)
[2018-10-02] MEDS: COZAAR PO SCH (09:55)
[2018-10-02] MEDS: PEPCID PO SCH (09:55)
[2018-10-02] MEDS: ZITHROMAX PO SCH (09:55)
[2018-10-02] MEDS: PROCARDIA XL PO SCH (09:55)
[2018-10-02] MEDS: LOVENOX SUB-Q SCH (09:56)
== END 2018-10-02 12:33 | disposition home health service (06) | DRG 189 ==
LOC: ED 22:36 → 4A 09-30 04:46
PROVIDERS: ADMIT Internal Medicine; ATTEND Internal Medicine
DX: J96.22 Acute and chronic respiratory failure with hypercapnia (principal); J44.1 Chronic obstructive pulmonary disease with (acute) exacerbation; I42.9 Cardiomyopathy, unspecified; M94.0 Chondrocostal junction syndrome [Tietze]; J96.21 Acute and chronic respiratory failure with hypoxia; I10 Essential (primary) hypertension; E78.5 Hyperlipidemia, unspecified; E66.9 Obesity, unspecified; K21.9 Gastro-esophageal reflux disease without esophagitis; J20.9 Acute bronchitis, unspecified; E11.9 Type 2 diabetes mellitus without complications; Z99.81 Dependence on supplemental oxygen; Z90.710 Acquired absence of both cervix and uterus; Z79.51 Long term (current) use of inhaled steroids; Z79.899 Other long term (current) drug therapy; Z68.32 Body mass index [BMI] 32.0-32.9, adult; Z79.84 Long term (current) use of oral hypoglycemic drugs; Z87.891 Personal history of nicotine dependence
CPT/HCPCS: 36415; 71046; 78452; 80048; 80053; 80061; 82550; 82553; 82962; 84484; 85025; 85610; 85730; 93005; 93010; 93017; 94640; 94760; 96374; 96375; G0378; A9502; J1650; J2270; J2405; J2785; J2930

== ENCOUNTER 2018-12-19 06:03 | Inpatient (IN) | payer MEDICARE ==
[2018-12-19] MEDS ORDERED: ATROVENT IH ONE (06:12)
[2018-12-19] MEDS ORDERED: PROVENTIL IH ONE (06:12)
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
--- NOTE | 2018-12-19 07:01 | XRay Report ---
CHEST 1 VIEW 12/19/2018 6:18 AM INDICATION / CLINICAL INFORMATION: shortness of breath. COMPARISON: Chest x-ray 09/29/2018 FINDINGS: SUPPORT DEVICES: None. HEART / MEDIASTINUM: No significant abnormality. LUNGS / PLEURA: No significant pulmonary or pleural abnormality. No pneumothorax. ADDITIONAL FINDINGS: No significant additional findings. IMPRESSION: 1. No acute findings. Signer Name: Charles Taylor MD Signed: 12/19/2018 6:57 AM Workstation Name: [email or web address]
[2018-12-19 07:25] LABS: Basophils % (Auto) 0.4 % (0.0-1.8); Eosinophils # (Auto) 0.4 K/mm3 (0.0-0.4); Eosinophils % (Auto) 6.3 % (0.0-4.3); Hematocrit 37.9 % (30.3-42.9); Hemoglobin 12.3 gm/dl (10.1-14.3); Lymphocytes # (Auto) 1.6 K/mm3 (1.2-5.4); Lymphocytes % (Auto) 22.6 % (13.4-35.0); Mean Corpuscular HGB Conc 33 % (30-34); Mean Corpuscular Volume 78 fl (79-97); Monocytes # (Auto) 0.6 K/mm3 (0.0-0.8); Monocytes % (Auto) 8.3 % (0.0-7.3); Platelet Count 227 K/mm3 (140-440); Red Blood Count 4.84 M/mm3 (3.65-5.03)
[2018-12-19 07:37] LABS: Creatine Kinase MB 1.1 ng/mL (0.0-4.0)
[2018-12-19 07:40] LABS: Alanine Aminotransferase 6 units/L (7-56); Albumin 4.5 g/dL (3.9-5); BUN/Creatinine Ratio 25; Blood Urea Nitrogen 15 mg/dL (7-17); Calcium 9.9 mg/dL (8.4-10.2); Hemolysis Index 0
[2018-12-19] MEDS ORDERED: ASPIRIN PO ONE (07:43)
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
[2018-12-19] MEDS ORDERED: ZOFRAN IV PRN (11:00)
[2018-12-19] MEDS ORDERED: SODIUM CHLORIDE FLUSH SYRINGE 10 ML IV PRN (11:00)
[2018-12-19] MEDS ORDERED: PROVENTIL IH PRN (11:00)
[2018-12-19] MEDS ORDERED: REGLAN IV PRN (11:00)
[2018-12-19] MEDS ORDERED: DILAUDID IV PRN (11:00)
[2018-12-19] MEDS: DUONEB *Not for PRN Use IH SCH ×3 (11:34→20:04)
[2018-12-19] MEDS: ROCEPHIN/NS 2 GM/100 ML 2 GM/100 ML BAG IV SCH (12:01)
[2018-12-19] MEDS: ZITHROMAX 500 MG in NACL 0.9% 250ML 250 ML IV SCH (12:01)
[2018-12-19] MEDS: LASIX PO SCH (12:02)
[2018-12-19] MEDS: PROCARDIA XL PO SCH (12:02)
[2018-12-19] MEDS: COZAAR PO SCH (12:02)
[2018-12-19] MEDS: GLUCOPHAGE PO SCH ×2 (12:03→21:56)
[2018-12-19] MEDS: SOLU-Medrol IV SCH ×2 (13:44→21:56)
[2018-12-19] MEDS: TESSALON PERLES PO SCH ×2 (13:44→21:55)
[2018-12-19] MEDS: PROVENTIL IH SCH ×3 (13:49→22:56)
[2018-12-19] MEDS ORDERED: PROAIR IH SCH (14:00)
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
[2018-12-19] MEDS: PEPCID PO SCH (21:56)
[2018-12-19] MEDS: SODIUM CHLORIDE FLUSH SYRINGE 10 ML IV SCH (21:57)
[2018-12-20] MEDS: PERCOCET 5/325 PO PRN (02:35)
[2018-12-20] MEDS: TESSALON PERLES PO SCH ×3 (05:25→22:25)
[2018-12-20] MEDS: SOLU-Medrol IV SCH ×3 (05:25→22:25)
[2018-12-20 07:23] LABS: Hematocrit 35.5 % (30.3-42.9); Hemoglobin 11.5 gm/dl (10.1-14.3); Mean Corpuscular HGB Conc 32 % (30-34); Mean Corpuscular Volume 78 fl (79-97); Platelet Count 220 K/mm3 (140-440); Red Blood Count 4.55 M/mm3 (3.65-5.03); Red Cell Distribution Width 17.1 % (13.2-15.2)
[2018-12-20 07:42] LABS: Alanine Aminotransferase 6 units/L (7-56); Albumin 4.1 g/dL (3.9-5); BUN/Creatinine Ratio 32; Blood Urea Nitrogen 19 mg/dL (7-17); Calcium 9.6 mg/dL (8.4-10.2); Hemolysis Index 3
[2018-12-20 08:57] LABS: Basophils % (Manual) 0 % (0.0-1.8); Eosinophils % (Manual) 0 % (0.0-4.3); Monocytes % (Manual) 0 % (0.0-7.3); Total Cells Counted 100
[2018-12-20 08:58] LABS: Hypochromasia Few; Platelet Estimate Consistent w Auto; Schistocytes Few
[2018-12-20] MEDS ORDERED: K-DUR PO SCH (10:00)
[2018-12-20] MEDS: DUONEB *Not for PRN Use IH SCH ×5 (10:05→19:21)
[2018-12-20] MEDS: PROCARDIA XL PO SCH (13:03)
[2018-12-20] MEDS: LASIX PO SCH (13:03)
[2018-12-20] MEDS: PEPCID PO SCH ×2 (13:03→22:25)
[2018-12-20] MEDS: GLUCOPHAGE PO SCH ×2 (13:03→22:25)
[2018-12-20] MEDS: COZAAR PO SCH (13:03)
[2018-12-20] MEDS: ATIVAN PO PRN ×2 (13:08→22:25)
[2018-12-20] MEDS: SODIUM CHLORIDE FLUSH SYRINGE 10 ML IV SCH ×2 (13:09→22:26)
[2018-12-20] MEDS: ROCEPHIN/NS 2 GM/100 ML 2 GM/100 ML BAG IV SCH (13:11)
[2018-12-20] MEDS: ZITHROMAX 500 MG in NACL 0.9% 250ML 250 ML IV SCH (13:11)
[2018-12-20] MEDS: TYLENOL PO PRN (14:17)
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
--- NOTE | 2018-12-20 18:44 | Progress Note ---
Assessment and Plan Patient alert and awake. Patient resint on BIPAP 12/6, rate 18, FiO2 30%. Patient tolerating present BIPAP settings. O2 saturation 95%. Patient afebrile. No leukocytosis. - Patient Problems (1) Acute and chronic respiratory failure with hypoxia Current Visit: No Status: Acute Plan to address problem: 1. BIPAP 12/6, rate 18. FiO2 30%. 2. Albuterol and Atrovent q 6 hrs. 3. Continue IV solumedrol. 4. Continue Ceftriaxone and Zithromax. 5. Continue famotidine. 6. Recommend DVT prophylaxis. (2) Acute exacerbation of chronic obstructive pulmonary disease (COPD) Current Visit: No Status: Acute Plan to address problem: 1. BIPAP 12/6, rate 18. FiO2 30%. 2. Albuterol and Atrovent q 6 hrs. 3. Continue IV solumedrol. 4. Continue Ceftriaxone and Zithromax. 5. Continue famotidine. 6. Recommend DVT prophylaxis. 7. Recommend PFTs as outpatient. (3) T2DM (type 2 diabetes mellitus) Current Visit: No Status: Acute Plan to address problem: Management as per primary care. (4) GERD (gastroesophageal reflux disease) Current Visit: No Status: Chronic Qualifiers: Esophagitis presence: without esophagitis Qualified Code(s): K21.9 - Gastro-esophageal reflux disease without esophagitis Plan to address problem: Patient is on famotidine. (5) HTN (hypertension) Current Visit: No Status: Chronic Qualifiers: Hypertension type: essential hypertension Qualified Code(s): I10 - Essential (primary) hypertension Plan to address problem: Management as per primary care. (6) Tobacco use disorder Current Visit: No Status: Chronic Plan to address problem: Counseled to stop smoking. Subjective Date of service: 12/20/18 Interval history: Patient alert and awake. Patient resint on BIPAP 12/6, rate 18, FiO2 30%. Patient tolerating present BIPAP settings. O2 saturation 95%. Patient afebrile. No leukocytosis. Objective Vital Signs - 12hr 12/20/18 12/20/18 12/20/18 08:00 09:57 10:00 Temperature 98.2 F Pulse Rate Pulse Rate [ 114 H Anterior Bilateral Throughout] Pulse Rate [ 135 H Posterior Bilateral Throughout] Respiratory 24 Rate Respiratory 20 Rate [Anterior Bilateral Throughout] Respiratory 28 H Rate [Posterior Bilateral Throughout] Blood Pressure 143/72 O2 Sat by Pulse 95 Oximetry 12/20/18 12/20/18 12/20/18 13:03 14:36 17:35 Temperature Pulse Rate 115 H Pulse Rate [ 100 H 117 H Anterior Bilateral Throughout] Pulse Rate [ 95 H 114 H Posterior Bilateral Throughout] Respiratory Rate Respiratory 20 20 Rate [Anterior Bilateral Throughout] Respiratory 18 20 Rate [Posterior Bilateral Throughout] Blood Pressure O2 Sat by Pulse Oximetry Constitutional: no acute distress, alert, other (resting on BIPAP) Eyes: non-icteric ENT: oropharynx moist Neck: supple Effort: mildly labored Ascultation: Bilateral: diminished breath sounds Cardiovascular: regular rate and rhythm Gastrointestinal: normoactive bowel sounds Integumentary: normal Extremities: no cyanosis Neurologic: normal mental status, non-focal exam Psychiatric: mood appropriate, affect normal CBC and BMP: 12/20/18 06:53 12/20/18 06:53 ABG, PT/INR, D-dimer: ABG POC ABG pH 7.365 (7.35-7.45) 12/19/18 06:35 POC ABG pCO2 44.1 (35-45) 12/19/18 06:35 POC ABG pO2 89 (80-105) 12/19/18 06:35 POC ABG HCO3 25.2 (22-26 mml/L) 12/19/18 06:35 POC ABG Total CO2 27 (23-27mmol/L) 12/19/18 06:35 POC ABG O2 Sat 97 12/19/18 06:35 Abnormal lab findings: Abnormal Labs 12/19/18 12/19/18 12/19/18 06:39 06:39 06:39 MCV 78 L MCH 25 L RDW 17.0 H [place] % (Auto) 8.3 H Eos % (Auto) 6.3 H Seg Neuts % (Manual) Lymphocytes % (Manual) Lymphocytes # (Manual) BUN Creatinine 0.6 L Glucose 134 H POC Glucose Hemoglobin A1c 6.1 H ALT 6 L 12/19/18 12/19/18 12/20/18 11:29 16:38 06:53 MCV 78 L MCH 25 L RDW 17.1 H [place] % (Auto) Eos % (Auto) Seg Neuts % (Manual) 89.0 H Lymphocytes % (Manual) 11.0 L Lymphocytes # (Manual) 1.0 L BUN Creatinine Glucose POC Glucose 152 H 166 H Hemoglobin A1c ALT 12/20/18 12/20/18 12/20/18 06:53 07:53 12:56 MCV MCH RDW [place] % (Auto) Eos % (Auto) Seg Neuts % (Manual) Lymphocytes % (Manual) Lymphocytes # (Manual) BUN 19 H Creatinine 0.6 L Glucose 147 H POC Glucose 158 H 146 H Hemoglobin A1c ALT 6 L 12/20/18 16:38 MCV MCH RDW [place] % (Auto) Eos % (Auto) Seg Neuts % (Manual) Lymphocytes % (Manual) Lymphocytes # (Manual) BUN Creatinine Glucose POC Glucose 144 H Hemoglobin A1c ALT Chest x-ray: report reviewed, image reviewed (Reported no acute findings)
[2018-12-21] MEDS: SOLU-Medrol IV SCH ×3 (05:46→21:25)
[2018-12-21] MEDS: MUCINEX ER PO SCH ×2 (05:46→21:24)
[2018-12-21] MEDS: TESSALON PERLES PO SCH ×3 (05:48→21:24)
[2018-12-21] MEDS: DUONEB *Not for PRN Use IH SCH ×4 (08:33→20:54)
[2018-12-21] MEDS: PERCOCET 5/325 PO PRN (09:01)
[2018-12-21] MEDS: ROCEPHIN/NS 2 GM/100 ML 2 GM/100 ML BAG IV SCH (10:29)
[2018-12-21] MEDS: SODIUM CHLORIDE FLUSH SYRINGE 10 ML IV SCH ×2 (10:30→21:25)
[2018-12-21] MEDS: LASIX PO SCH (10:30)
[2018-12-21] MEDS: K-DUR PO SCH (10:30)
[2018-12-21] MEDS: PROCARDIA XL PO SCH (10:30)
[2018-12-21] MEDS: GLUCOPHAGE PO SCH ×2 (10:30→21:25)
[2018-12-21] MEDS: PEPCID PO SCH ×2 (10:30→21:24)
[2018-12-21] MEDS: COZAAR PO SCH (10:30)
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
[2018-12-21] MEDS: ZITHROMAX 500 MG in NACL 0.9% 250ML 250 ML IV SCH (11:30)
--- NOTE | 2018-12-21 17:51 | Progress Note ---
Assessment and Plan Patient alert and awake. Patient resting on 2 litres O2. O2 saturation 93%.Patient still complaining shortness of breath even for slight exertion. BIPAP 12/6, rate 18, FiO2 30% stand by in the room. Patient afebrile. No leukocytosis. - Patient Problems (1) Acute and chronic respiratory failure with hypoxia Current Visit: No Status: Acute Plan to address problem: 1. BIPAP 12/6, rate 18. FiO2 30%. 2. Albuterol and Atrovent q 6 hrs. 3. Continue IV solumedrol. 4. Continue Ceftriaxone and Zithromax. 5. Continue famotidine. 6. Recommend DVT prophylaxis. 7. O2 litres via nasal canula when she is not on BIPAP. (2) Acute exacerbation of chronic obstructive pulmonary disease (COPD) Current Visit: No Status: Acute Plan to address problem: 1. BIPAP 12/6, rate 18. FiO2 30%. 2. Albuterol and Atrovent q 6 hrs. 3. Continue IV solumedrol. 4. Continue Ceftriaxone and Zithromax. 5. Continue famotidine. 6. Recommend DVT prophylaxis. 7. O2 2 litres via nasal canula when she is not on BIPAP 8. Recommend PFTs as outpatient. (3) T2DM (type 2 diabetes mellitus) Current Visit: No Status: Chronic Qualifiers: Diabetes mellitus mcc insulin use: unspecified mcc insulin use status Plan to address problem: Management as per primary care. (4) GERD (gastroesophageal reflux disease) Current Visit: No Status: Chronic Qualifiers: Esophagitis presence: without esophagitis Qualified Code(s): K21.9 - Gastro-esophageal reflux disease without esophagitis Plan to address problem: Patient is on famotidine. (5) HTN (hypertension) Current Visit: No Status: Chronic Qualifiers: Hypertension type: essential hypertension Qualified Code(s): I10 - Essential (primary) hypertension Plan to address problem: Management as per primary care. (6) Tobacco use disorder Current Visit: No Status: Chronic Plan to address problem: Counseled to stop smoking. Subjective Date of service: 12/21/18 Principal diagnosis: Acute resp failure and COPd exacerbation Interval history: Patient alert and awake. Patient resting on 2 litres O2. O2 saturation 93%.Patient still complaining shortness of breath even for slight exertion. BIPAP 12/6, rate 18, FiO2 30% stand by in the room. Patient afebrile. No leukocytosis. Objective Vital Signs - 12hr 12/21/18 12/21/18 12/21/18 06:52 08:00 08:39 Temperature Pulse Rate 88 Pulse Rate [ 104 H Anterior Bilateral Throughout] Pulse Rate [ 100 H Posterior Bilateral Throughout] Respiratory 19 Rate Respiratory 20 Rate [Anterior Bilateral Throughout] Respiratory 20 Rate [Posterior Bilateral Throughout] Blood Pressure 135/70 O2 Sat by Pulse 95 96 Oximetry 12/21/18 12/21/18 12/21/18 09:01 09:58 10:00 Temperature 97.9 F Pulse Rate 59 L 94 H Pulse Rate [ Anterior Bilateral Throughout] Pulse Rate [ Posterior Bilateral Throughout] Respiratory 26 H 20 30 H Rate Respiratory Rate [Anterior Bilateral Throughout] Respiratory Rate [Posterior Bilateral Throughout] Blood Pressure 157/60 O2 Sat by Pulse 93 93 Oximetry 12/21/18 12/21/18 10:30 15:10 Temperature Pulse Rate Pulse Rate [ 102 H Anterior Bilateral Throughout] Pulse Rate [ 100 H Posterior Bilateral Throughout] Respiratory Rate Respiratory 20 Rate [Anterior Bilateral Throughout] Respiratory 20 Rate [Posterior Bilateral Throughout] Blood Pressure 157/60 O2 Sat by Pulse Oximetry Constitutional: alert, other (mild respiratory distress) Eyes: non-icteric ENT: oropharynx moist Neck: supple, no lymphadenopathy, no JVD Effort: mildly labored Ascultation: Bilateral: diminished breath sounds, wheezes (long expiratory phase) Cardiovascular: regular rate and rhythm, other (S1,S2) Gastrointestinal: normoactive bowel sounds, soft, non-tender, non-distended Integumentary: normal Extremities: no cyanosis, no edema, pink and warm, pulses normal, no ischemia or petechiae Neurologic: normal mental status, non-focal exam, pupils equal and round, motor strength normal and Psychiatric: mood appropriate, affect normal CBC and BMP: 12/20/18 06:53 12/20/18 06:53 ABG, PT/INR, D-dimer: ABG POC ABG pH 7.365 (7.35-7.45) 12/19/18 06:35 POC ABG pCO2 44.1 (35-45) 12/19/18 06:35 POC ABG pO2 89 (80-105) 12/19/18 06:35 POC ABG HCO3 25.2 (22-26 mml/L) 12/19/18 06:35 POC ABG Total CO2 27 (23-27mmol/L) 12/19/18 06:35 POC ABG O2 Sat 97 12/19/18 06:35 Abnormal lab findings: Abnormal Labs 12/19/18 12/19/18 12/19/18 06:39 06:39 06:39 MCV 78 L MCH 25 L RDW 17.0 H [place] % (Auto) 8.3 H Eos % (Auto) 6.3 H Seg Neuts % (Manual) Lymphocytes % (Manual) Lymphocytes # (Manual) BUN Creatinine 0.6 L Glucose 134 H POC Glucose Hemoglobin A1c 6.1 H ALT 6 L 12/19/18 12/19/18 12/20/18 11:29 16:38 06:53 MCV 78 L MCH 25 L RDW 17.1 H [place] % (Auto) Eos % (Auto) Seg Neuts % (Manual) 89.0 H Lymphocytes % (Manual) 11.0 L Lymphocytes # (Manual) 1.0 L BUN Creatinine Glucose POC Glucose 152 H 166 H Hemoglobin A1c ALT 12/20/18 12/20/18 12/20/18 06:53 07:53 12:56 MCV MCH RDW [place] % (Auto) Eos % (Auto) Seg Neuts % (Manual) Lymphocytes % (Manual) Lymphocytes # (Manual) BUN 19 H Creatinine 0.6 L Glucose 147 H POC Glucose 158 H 146 H Hemoglobin A1c ALT 6 L 12/20/18 12/20/18 12/21/18 16:38 21:54 08:29 MCV MCH RDW [place] % (Auto) Eos % (Auto) Seg Neuts % (Manual) Lymphocytes % (Manual) Lymphocytes # (Manual) BUN Creatinine Glucose POC Glucose 144 H 154 H 143 H Hemoglobin A1c ALT 12/21/18 12/21/18 12:33 17:05 MCV MCH RDW [place] % (Auto) Eos % (Auto) Seg Neuts % (Manual) Lymphocytes % (Manual) Lymphocytes # (Manual) BUN Creatinine Glucose POC Glucose 124 H 146 H Hemoglobin A1c ALT
[2018-12-21] MEDS: ATIVAN PO PRN (21:24)
[2018-12-21] MEDS: LOVENOX SUB-Q SCH (21:24)
[2018-12-22] MEDS: TESSALON PERLES PO SCH ×3 (05:20→21:44)
[2018-12-22] MEDS: SOLU-Medrol IV SCH ×2 (05:20→21:42)
[2018-12-22] MEDS: DUONEB *Not for PRN Use IH SCH ×2 (07:42→13:13)
--- NOTE | 2018-12-22 08:38 | Progress Note ---
Assessment and Plan Acute on chronic combined hypoxic-hypercapnic respiratory failure AE COPD h/o Hypertension h/o Tobacco use disorder/nicotine dependence Type 2 diabetes mellitus GERD Anxiety disorder - Continue with BIPAP qhs and prn - Supplemental oxygen to keep O2 sats 88-90% - ABG - JACK/SADIE- bronchodilators - VTE prophylaxis - continue systemic steroids with a quick taper (tapered to 60 mg IV q8h) - 5 day course of antibiotics - Ambulate, increase activity as tolerated - Accucheck with glycemic control,keep blood glucose 140-180 mg/dL - Chronic home medications - Anxiety management - Continue famotidine fro GERD, GERD counseling done - Encouraged to remain quit from smoking. She no longer smokes ... re-evaluate in am & prn Subjective Date of service: 12/22/18 Principal diagnosis: Acute resp failure and COPd exacerbation Interval history: Patient is seen today for: Seen and examined at bedside; 24hour events reviewed; nursing and respiratory care staff consulted; no adverse overnight events reported to me; resting peacefully in bed; deneis acute chest pains or palpitations; still SOB and with SOLIZ Objective Vital Signs - 12hr 12/21/18 12/21/18 12/21/18 20:55 22:00 23:29 Temperature 97.7 F Pulse Rate 92 H 95 H Pulse Rate [ Anterior Bilateral Throughout] Pulse Rate [ 101 H Posterior Bilateral Throughout] Respiratory 19 Rate Respiratory Rate [Anterior Bilateral Throughout] Respiratory 20 Rate [Posterior Bilateral Throughout] Blood Pressure 126/63 O2 Sat by Pulse 94 93 Oximetry 12/22/18 12/22/18 12/22/18 00:19 03:58 06:15 Temperature 97.3 F L Pulse Rate 89 92 H Pulse Rate [ 60 Anterior Bilateral Throughout] Pulse Rate [ 68 Posterior Bilateral Throughout] Respiratory 24 20 Rate Respiratory 20 Rate [Anterior Bilateral Throughout] Respiratory 24 Rate [Posterior Bilateral Throughout] Blood Pressure 120/63 O2 Sat by Pulse 96 92 Oximetry 12/22/18 07:46 Temperature Pulse Rate Pulse Rate [ Anterior Bilateral Throughout] Pulse Rate [ 78 Posterior Bilateral Throughout] Respiratory Rate Respiratory Rate [Anterior Bilateral Throughout] Respiratory 20 Rate [Posterior Bilateral Throughout] Blood Pressure O2 Sat by Pulse 9 L Oximetry Constitutional: alert, other (elderly looking obese AAF with mild respiratory distress) Eyes: non-icteric ENT: oropharynx moist, other (mallampati 3) Neck: supple, no lymphadenopathy, no JVD Effort: mildly labored Ascultation: Bilateral: diminished breath sounds, wheezes, other (prolonged expiratory phase) Percussion: Bilateral: not dull Cardiovascular: regular rate and rhythm, other (S1,S2) Gastrointestinal: normoactive bowel sounds, soft, non-tender, non-distended Integumentary: normal Extremities: no cyanosis, no edema, pink and warm, pulses normal, no ischemia or petechiae Neurologic: normal mental status, non-focal exam, pupils equal and round, motor strength normal and Psychiatric: mood appropriate, affect normal CBC and BMP: 12/20/18 06:53 12/22/18 15:46 ABG, PT/INR, D-dimer: ABG POC ABG pH 7.365 (7.35-7.45) 12/19/18 06:35 POC ABG pCO2 44.1 (35-45) 12/19/18 06:35 POC ABG pO2 89 (80-105) 12/19/18 06:35 POC ABG HCO3 25.2 (22-26 mml/L) 12/19/18 06:35 POC ABG Total CO2 27 (23-27mmol/L) 12/19/18 06:35 POC ABG O2 Sat 97 12/19/18 06:35 Abnormal lab findings: Abnormal Labs 12/19/18 12/19/18 12/19/18 06:39 06:39 06:39 MCV 78 L MCH 25 L RDW 17.0 H [place] % (Auto) 8.3 H Eos % (Auto) 6.3 H Seg Neuts % (Manual) Lymphocytes % (Manual) Lymphocytes # (Manual) BUN Creatinine 0.6 L Glucose 134 H POC Glucose Hemoglobin A1c 6.1 H ALT 6 L 12/19/18 12/19/18 12/20/18 11:29 16:38 06:53 MCV 78 L MCH 25 L RDW 17.1 H [place] % (Auto) Eos % (Auto) Seg Neuts % (Manual) 89.0 H Lymphocytes % (Manual) 11.0 L Lymphocytes # (Manual) 1.0 L BUN Creatinine Glucose POC Glucose 152 H 166 H Hemoglobin A1c ALT 12/20/18 12/20/18 12/20/18 06:53 07:53 12:56 MCV MCH RDW [place] % (Auto) Eos % (Auto) Seg Neuts % (Manual) Lymphocytes % (Manual) Lymphocytes # (Manual) BUN 19 H Creatinine 0.6 L Glucose 147 H POC Glucose 158 H 146 H Hemoglobin A1c ALT 6 L 12/20/18 12/20/18 12/21/18 16:38 21:54 08:29 MCV MCH RDW [place] % (Auto) Eos % (Auto) Seg Neuts % (Manual) Lymphocytes % (Manual) Lymphocytes # (Manual) BUN Creatinine Glucose POC Glucose 144 H 154 H 143 H Hemoglobin A1c ALT 12/21/18 12/21/18 12/21/18 12:33 17:05 21:04 MCV MCH RDW [place] % (Auto) Eos % (Auto) Seg Neuts % (Manual) Lymphocytes % (Manual) Lymphocytes # (Manual) BUN Creatinine Glucose POC Glucose 124 H 146 H 132 H Hemoglobin A1c ALT 12/22/18 08:06 MCV MCH RDW [place] % (Auto) Eos % (Auto) Seg Neuts % (Manual) Lymphocytes % (Manual) Lymphocytes # (Manual) BUN Creatinine Glucose POC Glucose 151 H Hemoglobin A1c ALT Chest x-ray: image reviewed Allied health notes reviewed: nursing
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
[2018-12-22] MEDS: GLUCOPHAGE PO SCH ×2 (11:35→21:44)
[2018-12-22] MEDS: LASIX PO SCH (11:35)
[2018-12-22] MEDS: ROCEPHIN/NS 2 GM/100 ML 2 GM/100 ML BAG IV SCH (11:35)
[2018-12-22] MEDS: PROCARDIA XL PO SCH (11:35)
[2018-12-22] MEDS: MUCINEX ER PO SCH ×2 (11:35→21:44)
[2018-12-22] MEDS: PEPCID PO SCH ×2 (11:35→21:44)
[2018-12-22] MEDS: COZAAR PO SCH (11:36)
[2018-12-22] MEDS: TYLENOL PO PRN (13:17)
[2018-12-22] MEDS: ZITHROMAX 500 MG in NACL 0.9% 250ML 250 ML IV SCH (13:17)
--- NOTE | 2018-12-22 14:22 | Event Note ---
Date: 12/22/18 Pt seen by [facility] on recent admission and states she sees [facility] as OP. Will defer cardiology consultation to [facility]. Jacobo DYER NP / DR. JORDAN
[2018-12-22 17:06] LABS: BUN/Creatinine Ratio 26; Blood Urea Nitrogen 23 mg/dL (7-17); Calcium 9.5 mg/dL (8.4-10.2); Hemolysis Index 18
[2018-12-22] MEDS ORDERED: DUONEB *Not for PRN Use IH SCH (20:00)
[2018-12-22] MEDS: LOVENOX SUB-Q SCH (21:44)
[2018-12-22] MEDS: SODIUM CHLORIDE FLUSH SYRINGE 10 ML IV SCH (21:45)
[2018-12-22] MEDS ORDERED: D50W (25GM) Syringe IV PRN (23:04)
[2018-12-23] MEDS: SOLU-Medrol IV SCH (06:37)
[2018-12-23] MEDS: TESSALON PERLES PO SCH (06:37)
[2018-12-23] MEDS: HumaLOG SUB-Q SCH ×2 (08:00→12:36)
[2018-12-23] MEDS: PULMICORT IH SCH ×2 (08:03)
[2018-12-23] MEDS: BROVANA NEBU IH SCH ×2 (08:03→08:05)
[2018-12-23] MEDS: DUONEB *Not for PRN Use IH SCH ×4 (08:04→15:56)
[2018-12-23 09:11] VITALS: BP 138/78
[2018-12-23] MEDS: GLUCOPHAGE PO SCH (10:56)
[2018-12-23] MEDS: PEPCID PO SCH (10:56)
[2018-12-23] MEDS: COZAAR PO SCH (10:56)
[2018-12-23] MEDS: LASIX PO SCH (10:56)
[2018-12-23] MEDS: MUCINEX ER PO SCH (10:56)
[2018-12-23] MEDS: ROCEPHIN/NS 2 GM/100 ML 2 GM/100 ML BAG IV SCH (10:56)
[2018-12-23] MEDS: PROCARDIA XL PO SCH (10:56)
[2018-12-23] MEDS: K-DUR PO SCH (11:06)
--- NOTE | 2018-12-23 11:47 | Consultation ---
History of Present Illness Consult date: 12/23/18 Consult reason: other (NSVT) History of present illness: This is a 68-year old woman with a history of prior tobacco abuse, chronic lung disease and COPD on home oxygen who was admitted 12/19 with COPD exacerbation. While on telemetry, patient had a transient episode of non-sustained ventricular tachycardia. It's reported the patient remained asymptomatic. Labs revealed a TSH of 0.064. Cardiac consultation has been requested. Medications and Allergies Allergies Allergy/AdvReac Type Severity Reaction Status Date / Time No Known Allergies Allergy Unverified 10/29/14 10:06 Home Medications Medication Instructions Recorded Confirmed Last Taken Type Famotidine [Pepcid] 20 mg PO BID 08/24/17 12/19/18 08/29/18 History Furosemide [Lasix TAB] 40 mg PO QDAY #30 tablet 11/29/17 12/19/18 12/17/18 Rx ALBUTEROL Inhaler(NF) [VENTOLIN 2 puff IH QID 08/29/18 12/19/18 12/19/18 History Inhaler(NF)] Potassium Chloride [Klor-Con M20] 20 meq PO 3XW 08/29/18 12/19/18 12/18/18 History metFORMIN [Glucophage] 2 tab PO BID 08/29/18 12/19/18 12/18/18 History ALBUTEROL NEB's [Proventil 0.083% 2.5 mg IH QID PRN #90 nebu 09/01/18 12/19/18 12/19/18 Rx NEBS] Ipratropium [Atrovent NEB] 0.5 mg IH QID #90 nebu 09/01/18 12/19/18 Unknown Rx Losartan [Cozaar] 50 mg PO QDAY #30 tablet 09/01/18 12/19/18 12/18/18 Rx NIFEdipine XL [Procardia Xl] 60 mg PO QDAY 09/30/18 12/19/18 12/18/18 History Azithromycin [Zithromax TAB] 250 mg PO QDAY #5 tablet 10/02/18 12/19/18 Unknown Rx Benzonatate [Tessalon Perles] 100 mg PO Q8HR #30 capsule 10/02/18 12/19/18 Unknown Rx LORazepam [Ativan] 1 mg PO BID PRN #30 tablet 10/02/18 12/19/18 Unknown Rx Prednisone [predniSONE 10 mg 10 mg PO .TAPER #1 tab.ds.pk 10/02/18 12/19/18 Unknown Rx (6-Day Pack, 21 Tabs)] Active Meds: Active Medications Acetaminophen (Tylenol) 650 mg PO Q4H PRN PRN Reason: Pain MILD(1-3)/Fever >100.5/SPANN Last Admin: 12/22/18 13:17 Dose: 650 mg Documented by: Albuterol (Proventil) 2.5 mg IH Q4HRT PRN PRN Reason: Shortness Of Breath Last Admin: 12/22/18 06:14 Dose: 2.5 mg Documented by: Albuterol/Ipratropium (Duoneb *Not For Prn Use*) 1 ampul IH QIDRT [facility] Last Admin: 12/23/18 11:11 Dose: 1 ampul Documented by: Arformoterol Tartrate (Brovana Nebu) 15 mcg IH Q12HRT [facility] Last Admin: 12/23/18 08:05 Dose: 15 mcg Documented by: Benzonatate (Tessalon Perles) 100 mg PO Q8HR [facility] Last Admin: 12/23/18 06:37 Dose: 100 mg Documented by: Budesonide (Pulmicort) 0.5 mg IH Q12HRT [facility] Last Admin: 12/23/18 08:03 Dose: 0.5 mg Documented by: Dextrose (D50w (25gm) Syringe) 50 ml IV PRN PRN PRN Reason: Hypoglycemia Enoxaparin Sodium (Lovenox) 40 mg SUB-Q QDAY@2200 [facility] Last Admin: 12/22/18 21:44 Dose: 40 mg Documented by: Famotidine (Pepcid) 20 mg PO BID [facility] Last Admin: 12/23/18 10:56 Dose: 20 mg Documented by: Furosemide (Lasix) 40 mg PO QDAY [facility] Last Admin: 12/23/18 10:56 Dose: 40 mg Documented by: Guaifenesin (Mucinex Er) 1,200 mg PO BID [facility] Last Admin: 12/23/18 10:56 Dose: 1,200 mg Documented by: Hydromorphone HCl (Dilaudid) 0.5 mg IV Q3H PRN PRN Reason: Pain , Severe (7-10) Last Admin: 12/19/18 19:00 Dose: 0.5 mg Documented by: Insulin Human Lispro (Humalog) 0 unit SUB-Q ACHS [facility]; Protocol Lorazepam (Ativan) 1 mg PO BID PRN PRN Reason: anxiety Last Admin: 12/21/18 21:24 Dose: 1 mg Documented by: Losartan Potassium (Cozaar) 50 mg PO QDAY [facility] Last Admin: 12/23/18 10:56 Dose: 50 mg Documented by: Metformin HCl (Glucophage) 500 mg PO BID [facility] Last Admin: 12/23/18 10:56 Dose: 500 mg Documented by: Methylprednisolone Sodium Succinate (Solu-Medrol) 60 mg IV Q8HR [facility] Last Admin: 12/23/18 06:37 Dose: 60 mg Documented by: Metoclopramide HCl (Reglan) 10 mg IV Q6H PRN PRN Reason: Nausea And Vomiting Nifedipine (Procardia Xl) 60 mg PO QDAY [facility] Last Admin: 12/23/18 10:56 Dose: 60 mg Documented by: Ondansetron HCl (Zofran) 4 mg IV Q8H PRN PRN Reason: Nausea And Vomiting Oxycodone/Acetaminophen (Percocet 5/325) 1 tab PO Q6H PRN PRN Reason: Pain, Moderate (4-6) Last Admin: 12/21/18 09:01 Dose: 1 tab Documented by: Potassium Chloride (K-Dur) 20 meq PO MoWeFr [facility] Last Admin: 12/23/18 11:06 Dose: 20 meq Documented by: Sodium Chloride (Sodium Chloride Flush Syringe 10 Ml) 10 ml IV BID [facility] Last Admin: 12/22/18 21:45 Dose: 10 ml Documented by: Sodium Chloride (Sodium Chloride Flush Syringe 10 Ml) 10 ml IV PRN PRN PRN Reason: LINE FLUSH Last Admin: 12/22/18 05:27 Dose: 10 ml Documented by: Physical Examination Vital Signs Pulse Ox 96 12/19/18 06:06 General appearance: no acute distress HEENT: Positive: PERRL Neck: Positive: trachea midline Cardiac: Positive: Irregularly Regular Lungs: Positive: Decreased Breath Sounds Neuro: Positive: Grossly Intact Results 12/20/18 06:53 12/22/18 15:46 Comprehensive Metabolic Panel 12/22/18 Range/Units 15:46 Sodium 142 (137-145) mmol/L Potassium 3.9 (3.6-5.0) mmol/L Chloride 100.4 (98-107) mmol/L Carbon Dioxide 27 (22-30) mmol/L BUN 23 H (7-17) mg/dL Creatinine 0.9 (0.7-1.2) mg/dL Glucose 154 H (65-100) mg/dL Calcium 9.5 (8.4-10.2) mg/dL Assessment and Plan COPD exacerbation Transient NSVT, pt remained asymptomatic likely secondary to nebulizers. TSH of 0.064. Hypertension Diabetes Normal MPI 09/2018. Normal LVEF 60-65% by echo this admission. We will add low dose Diltiazem CD 120mg for suppression of NSVT.
--- NOTE | 2018-12-23 11:56 | Progress Note ---
Hospitalist Physical - Constitutional Vitals: Temp Pulse Resp BP Pulse Ox 98.3 F 74 20 138/78 96 12/23/18 07:45 12/23/18 08:05 12/23/18 08:05 12/23/18 07:46 12/23/18 08:05 General appearance: Present: mild distress, well-nourished Results - Labs CBC & Chem 7: 12/20/18 06:53 12/22/18 15:46 Labs: Laboratory Last Values WBC 8.7 K/mm3 (4.5-11.0) 12/20/18 06:53 RBC 4.55 M/mm3 (3.65-5.03) 12/20/18 06:53 Hgb 11.5 gm/dl (10.1-14.3) 12/20/18 06:53 Hct 35.5 % (30.3-42.9) 12/20/18 06:53 MCV 78 fl (79-97) L 12/20/18 06:53 MCH 25 pg (28-32) L 12/20/18 06:53 MCHC 32 % (30-34) 12/20/18 06:53 RDW 17.1 % (13.2-15.2) H 12/20/18 06:53 Plt Count 220 K/mm3 (140-440) 12/20/18 06:53 Lymph % (Auto) 22.6 % (13.4-35.0) 12/19/18 06:39 [place] % (Auto) 8.3 % (0.0-7.3) H 12/19/18 06:39 Eos % (Auto) 6.3 % (0.0-4.3) H 12/19/18 06:39 Baso % (Auto) 0.4 % (0.0-1.8) 12/19/18 06:39 Lymph # 1.6 K/mm3 (1.2-5.4) 12/19/18 06:39 [place] # 0.6 K/mm3 (0.0-0.8) 12/19/18 06:39 Eos # 0.4 K/mm3 (0.0-0.4) 12/19/18 06:39 Baso # 0.0 K/mm3 (0.0-0.1) 12/19/18 06:39 Add Manual Diff Complete 12/20/18 06:53 Total Counted 100 12/20/18 06:53 Seg Neutrophils % [employer] 12/20/18 06:53 Seg Neuts % (Manual) 89.0 % (40.0-70.0) H 12/20/18 06:53 0 % 12/20/18 06:53 11.0 % (13.4-35.0) L 12/20/18 06:53 Reactive Lymphs % (Man) 0 % 12/20/18 06:53 0 % (0.0-7.3) 12/20/18 06:53 0 % (0.0-4.3) 12/20/18 06:53 0 % (0.0-1.8) 12/20/18 06:53 0 % 12/20/18 06:53 0 % 12/20/18 06:53 0 % 12/20/18 06:53 0 % 12/20/18 06:53 Nucleated RBC % Not Reportable 12/20/18 06:53 Seg Neutrophils # 4.4 K/mm3 (1.8-7.7) 12/19/18 06:39 Seg Neutrophils # Man 7.7 K/mm3 (1.8-7.7) 12/20/18 06:53 Band Neutrophils # 0.0 K/mm3 12/20/18 06:53 1.0 K/mm3 (1.2-5.4) L 12/20/18 06:53 Abs React Lymphs (Man) 0.0 K/mm3 12/20/18 06:53 0.0 K/mm3 (0.0-0.8) 12/20/18 06:53 0.0 K/mm3 (0.0-0.4) 12/20/18 06:53 0.0 K/mm3 (0.0-0.1) 12/20/18 06:53 0.0 K/mm3 12/20/18 06:53 0.0 K/mm3 12/20/18 06:53 0.0 K/mm3 12/20/18 06:53 Blast Cells # 0.0 K/mm3 12/20/18 06:53 WBC Morphology Not Reportable 12/20/18 06:53 Hypersegmented Neuts Not Reportable 12/20/18 06:53 Hyposegmented Neuts Not Reportable 12/20/18 06:53 Hypogranular Neuts Not Reportable 12/20/18 06:53 Not Reportable 12/20/18 06:53 Not Reportable 12/20/18 06:53 Not Reportable 12/20/18 06:53 Not Reportable 12/20/18 06:53 Not Reportable 12/20/18 06:53 Not Reportable 12/20/18 06:53 Consistent w auto 12/20/18 06:53 Not Reportable 12/20/18 06:53 Plt Clumps, EDTA Not Reportable 12/20/18 06:53 Not Reportable 12/20/18 06:53 Not Reportable 12/20/18 06:53 Not Reportable 12/20/18 06:53 Plt Morphology Comment Not Reportable 12/20/18 06:53 RBC Morphology Not Reportable 12/20/18 06:53 Dimorphic RBCs Not Reportable 12/20/18 06:53 Not Reportable 12/20/18 06:53 Few 12/20/18 06:53 Not Reportable 12/20/18 06:53 Not Reportable 12/20/18 06:53 Not Reportable 12/20/18 06:53 Not Reportable 12/20/18 06:53 Not Reportable 12/20/18 06:53 Not Reportable 12/20/18 06:53 Not Reportable 12/20/18 06:53 Not Reportable 12/20/18 06:53 Not Reportable 12/20/18 06:53 Not Reportable 12/20/18 06:53 Not Reportable 12/20/18 06:53 Not Reportable 12/20/18 06:53 Not Reportable 12/20/18 06:53 Not Reportable 12/20/18 06:53 Not Reportable 12/20/18 06:53 Not Reportable 12/20/18 06:53 Not Reportable 12/20/18 06:53 Acanthocytes (Spur) Not Reportable 12/20/18 06:53 Rouleaux Not Reportable 12/20/18 06:53 Not Reportable 12/20/18 06:53 Few 12/20/18 06:53 Not Reportable 12/20/18 06:53 Not Reportable 12/20/18 06:53 Hem Pathologist Commnt No 12/20/18 06:53 POC ABG pH 7.365 (7.35-7.45) 12/19/18 06:35 POC ABG pCO2 44.1 (35-45) 12/19/18 06:35 POC ABG pO2 89 (80-105) 12/19/18 06:35 POC ABG HCO3 25.2 (22-26 mml/L) 12/19/18 06:35 POC ABG Total CO2 27 (23-27mmol/L) 12/19/18 06:35 POC ABG O2 Sat 97 12/19/18 06:35 POC ABG Base Excess 0 ((-2) - (+3)mmol/L) 12/19/18 06:35 VBG pH 7.340 (7.320-7.420) 12/19/18 06:39 30 % 12/19/18 06:35 Sodium 142 mmol/L (137-145) 12/22/18 15:46 Potassium 3.9 mmol/L (3.6-5.0) 12/22/18 15:46 Chloride 100.4 mmol/L (98-107) 12/22/18 15:46 Carbon Dioxide 27 mmol/L (22-30) 12/22/18 15:46 19 mmol/L 12/22/18 15:46 BUN 23 mg/dL (7-17) H 12/22/18 15:46 0.9 mg/dL (0.7-1.2) 12/22/18 15:46 Estimated GFR > 60 ml/min 12/22/18 15:46 26 % 12/22/18 15:46 Glucose 154 mg/dL (65-100) H 12/22/18 15:46 POC Glucose 127 (70-105) H 12/22/18 22:06 6.1 % (4-6) H 12/19/18 06:39 Calcium 9.5 mg/dL (8.4-10.2) 12/22/18 15:46 Magnesium 2.20 mg/dL (1.7-2.3) 12/22/18 15:46 < 0.20 mg/dL (0.1-1.2) 12/20/18 06:53 AST 17 units/L (5-40) 12/20/18 06:53 ALT 6 units/L (7-56) L 12/20/18 06:53 61 units/L (35-129) 12/20/18 06:53 61 units/L (30-135) 12/19/18 06:39 CK-MB (CK-2) 1.1 ng/mL (0.0-4.0) 12/19/18 06:39 CK-MB (CK-2) Rel Index 1.8 (0-4) 12/19/18 06:39 < 0.010 ng/mL (0.00-0.029) 12/19/18 06:39 NT-Pro-B Natriuret Pep 19.63 pg/mL (0-900) 12/19/18 06:39 6.8 g/dL (6.3-8.2) 12/20/18 06:53 4.1 g/dL (3.9-5) 12/20/18 06:53 1.5 % 12/20/18 06:53 TSH 0.064 mlU/mL (0.270-4.200) L 12/22/18 15:46 Free T4 1.20 ng/dL (0.76-1.46) 12/23/18 09:09 Active Medications - Current Medications Current Medications: Generic Name Dose Route Start Last Admin Trade Name Freq PRN Reason Stop Dose Admin Acetaminophen 650 mg 12/19/18 11:00 12/22/18 13:17 Tylenol PO 650 mg Q4H PRN Administration Pain MILD(1-3)/Fever >100.5/SPANN Albuterol 2.5 mg 12/19/18 11:00 12/22/18 06:14 Proventil IH 2.5 mg Q4HRT PRN Administration Shortness Of Breath Albuterol/Ipratropium 1 ampul 12/23/18 08:00 12/23/18 11:11 Duoneb *Not For Prn Use* IH 1 ampul QIDRT NANCY Administration Arformoterol Tartrate 15 mcg 12/22/18 23:15 12/23/18 08:05 Broangela Kasandrau IH 15 mcg Q12HRT NANCY Administration Benzonatate 100 mg 12/19/18 14:00 12/23/18 06:37 Tessalon Perles PO 100 mg Q8HR NANCY Administration Budesonide 0.5 mg 12/22/18 23:15 12/23/18 08:03 Pulmicort IH 0.5 mg Q12HRT NANCY Administration Dextrose 50 ml 12/22/18 23:04 D50w (25gm) Syringe IV PRN PRN Hypoglycemia Enoxaparin Sodium 40 mg 12/21/18 22:00 12/22/18 21:44 Lovenox SUB-Q 40 mg QDAY@2200 NANCY Administration Famotidine 20 mg 12/19/18 22:00 12/23/18 10:56 Pepcid PO 20 mg BID NANCY Administration Furosemide 40 mg 12/19/18 11:00 12/23/18 10:56 Lasix PO 40 mg QDAY NANCY Administration Guaifenesin 1,200 mg 12/21/18 06:00 12/23/18 10:56 Mucinex Er PO 1,200 mg BID NANCY Administration Hydromorphone HCl 0.5 mg 12/19/18 11:00 12/19/18 19:00 Dilaudid IV 0.5 mg Q3H PRN Administration Pain , Severe (7-10) Insulin Human Lispro 0 unit 12/23/18 07:30 Humalog SUB-Q ACHS [facility] Protocol Lorazepam 1 mg 12/19/18 10:16 12/21/18 21:24 Ativan PO 1 mg BID PRN Administration anxiety Losartan Potassium 50 mg 12/19/18 11:00 12/23/18 10:56 Cozaar PO 50 mg QDAY NANCY Administration Metformin HCl 500 mg 12/19/18 11:00 12/23/18 10:56 Glucophage PO 500 mg BID NANCY Administration Methylprednisolone Sodium Succinate 60 mg 12/22/18 16:57 12/23/18 06:37 Solu-Medrol IV 60 mg Q8HR NANCY Administration Metoclopramide HCl 10 mg 12/19/18 11:00 Reglan IV Q6H PRN Nausea And Vomiting Nifedipine 60 mg 12/19/18 11:00 12/23/18 10:56 Procardia Xl PO 60 mg QDAY NANCY Administration Ondansetron HCl 4 mg 12/19/18 11:00 Zofran IV Q8H PRN Nausea And Vomiting Oxycodone/Acetaminophen 1 tab 12/19/18 11:00 12/21/18 09:01 Percocet 5/325 PO 1 tab Q6H PRN Administration Pain, Moderate (4-6) Potassium Chloride 20 meq 12/21/18 11:00 12/23/18 11:06 K-Dur PO 20 meq MoWeFr NANCY Administration Sodium Chloride 10 ml 12/19/18 22:00 12/22/18 21:45 Sodium Chloride Flush Syringe 10 Ml IV 10 ml BID NANCY Administration Sodium Chloride 10 ml 12/19/18 11:00 12/22/18 05:27 Sodium Chloride Flush Syringe 10 Ml IV 10 ml PRN PRN Administration LINE FLUSH Nutrition/Malnutrition Assess - Dietary Evaluation Nutrition/Malnutrition Findings: Nutrition Notes Start: 12/20/18 13:31 Freq: Status: Active Protocol: Document 12/22/18 10:51 GUSTABO (Rec: 12/22/18 11:12 GUSTABO [id number]) Nutrition Notes Initial or Follow up Reassessment Current Diagnosis COPD,Diabetes,Hypertension Current Diet Cardiac/Consistent CHO Labs/Tests A1c 6.1 Pertinent Medications Solu-Medrol Height 5 ft 5 in Weight 85.6 kg [place] Body Weight (kg) 56.81 BMI 31.4 Weight change and time frame Weight gain likely due to fluid accumulation. Using previous weight of 77.11kg for needs Subjective/Other Information Pt f/u for PO and ONS intakes. Pt stated she has not had much of an appetite, but has been trying to eat as much as possible. RD observed breakfast tray with about 50% of food eaten, as well as a glucerna with about 25% missing. Pt stated she wanted to continue to try to drink her glucerna once daily. Pt requested sugar free jelly with toast in the AM. Percent of energy/protein needs met: 66%/60% Burn Absent Trauma Absent #1 Nutrition Diagnosis Inadequate oral intake As Evidenced by Signs and Symptoms breakfast at bedside with 50% missing, glucerna at bedside with 25% missing Diagnosis Progress(for reassessment Improved documentation) Is patient on ventilator? No Is Patient Ambulatory and/or Out of Bed No REE-([facility]-confined to bed) [phone] Additional Notes Using previous weight of 77. 111 kg Kcal needs: 1573.884 kcal/day Protein needs: 77-93g (1-1.2 g /day) Fluid needs per MD Nutrition Intervention Change Diet Order: Continue cardiac/consistent CHO diet with glucerna once daily Add Supplement/Snack (indicate name/kcal Continue Glucerna [place], /protein ) Vanilla 1 daily Provides kCal: 220 Provides Protein (gm) 10 Goal #1 Meet at least 75% of calorie and protein needs via PO and ONS intakes Anticipated Discharge Needs: Cardiac/Consistent CHO diet Follow-Up By: 12/27/18 Additional Comments F/u for PO and ONS intakes, weight fluctuations
[2018-12-23] MEDS ORDERED: CARDIZEM CD PO SCH (12:15)
[2018-12-23] MEDS: ZITHROMAX 500 MG in NACL 0.9% 250ML 250 ML IV SCH (12:31)
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
--- NOTE | 2018-12-23 13:54 | Progress Note ---
Assessment and Plan Acute on chronic combined hypoxic-hypercapnic respiratory failure AE COPD h/o Hypertension h/o Tobacco use disorder/nicotine dependence Type 2 diabetes mellitus GERD Anxiety disorder - Continue with BIPAP qhs and prn - Supplemental oxygen to keep O2 sats 88-90% - ABG - JACK/SADIE- bronchodilators - VTE prophylaxis - continue systemic steroids with a quick taper (tapered to 40 mg IV q12h) - 5 day course of antibiotics - Ambulate, increase activity as tolerated - Accucheck with glycemic control,keep blood glucose 140-180 mg/dL - Chronic home medications - Anxiety management - Continue famotidine fro GERD, GERD counseling done - Encouraged to remain quit from smoking. She no longer smokes ... re-evaluate in am & prn Subjective Date of service: 12/23/18 Principal diagnosis: Ac on ch hypoxemic hypercapnic resp failure; AE COPD ; Hypertension Interval history: Patient is seen today for: Ac on ch hypoxemic hypercapnic resp failure; AE COPD ; h/o Hypertension; h/o Tobacco use disorder/nicotine dependence; Type 2 diabetes mellitus; GERD; Anxiety disorder Seen and examined at bedside; 24hour events reviewed; nursing and respiratory care staff consulted; no adverse overnight events reported to me; resting peacefully in bed; Objective Vital Signs - 12hr 12/23/18 12/23/18 12/23/18 04:14 07:45 07:46 Temperature 98.0 F 98.3 F Pulse Rate 81 Pulse Rate [ Anterior Bilateral Throughout] Respiratory 22 26 H Rate Respiratory Rate [Anterior Bilateral Throughout] Blood Pressure 134/78 138/78 O2 Sat by Pulse 92 96 Oximetry 12/23/18 12/23/18 08:05 11:11 Temperature Pulse Rate Pulse Rate [ 74 69 Anterior Bilateral Throughout] Respiratory Rate Respiratory 20 20 Rate [Anterior Bilateral Throughout] Blood Pressure O2 Sat by Pulse 96 Oximetry Constitutional: alert, other (elderly looking obese AAF with mild respiratory distress) Eyes: non-icteric ENT: oropharynx moist, other (mallampati 3) Neck: supple, no lymphadenopathy, no JVD Effort: mildly labored Ascultation: Bilateral: diminished breath sounds, wheezes, other (prolonged expiratory phase) Percussion: Bilateral: not dull Cardiovascular: regular rate and rhythm, other (S1,S2) Gastrointestinal: normoactive bowel sounds, soft, non-tender, non-distended Integumentary: normal Extremities: no cyanosis, no edema, pink and warm, pulses normal, no ischemia or petechiae Neurologic: normal mental status, non-focal exam, pupils equal and round, motor strength normal and Psychiatric: mood appropriate, affect normal CBC and BMP: 12/20/18 06:53 12/22/18 15:46 ABG, PT/INR, D-dimer: ABG POC ABG pH 7.365 (7.35-7.45) 12/19/18 06:35 POC ABG pCO2 44.1 (35-45) 12/19/18 06:35 POC ABG pO2 89 (80-105) 12/19/18 06:35 POC ABG HCO3 25.2 (22-26 mml/L) 12/19/18 06:35 POC ABG Total CO2 27 (23-27mmol/L) 12/19/18 06:35 POC ABG O2 Sat 97 12/19/18 06:35 Abnormal lab findings: Abnormal Labs 12/19/18 12/19/18 12/19/18 06:39 06:39 06:39 MCV 78 L MCH 25 L RDW 17.0 H [place] % (Auto) 8.3 H Eos % (Auto) 6.3 H Seg Neuts % (Manual) Lymphocytes % (Manual) Lymphocytes # (Manual) BUN Creatinine 0.6 L Glucose 134 H POC Glucose Hemoglobin A1c 6.1 H ALT 6 L TSH 12/19/18 12/19/18 12/20/18 11:29 16:38 06:53 MCV 78 L MCH 25 L RDW 17.1 H [place] % (Auto) Eos % (Auto) Seg Neuts % (Manual) 89.0 H Lymphocytes % (Manual) 11.0 L Lymphocytes # (Manual) 1.0 L BUN Creatinine Glucose POC Glucose 152 H 166 H Hemoglobin A1c ALT TSH 12/20/18 12/20/18 12/20/18 06:53 07:53 12:56 MCV MCH RDW [place] % (Auto) Eos % (Auto) Seg Neuts % (Manual) Lymphocytes % (Manual) Lymphocytes # (Manual) BUN 19 H Creatinine 0.6 L Glucose 147 H POC Glucose 158 H 146 H Hemoglobin A1c ALT 6 L TSH 12/20/18 12/20/18 12/21/18 16:38 21:54 08:29 MCV MCH RDW [place] % (Auto) Eos % (Auto) Seg Neuts % (Manual) Lymphocytes % (Manual) Lymphocytes # (Manual) BUN Creatinine Glucose POC Glucose 144 H 154 H 143 H Hemoglobin A1c ALT TSH 12/21/18 12/21/18 12/21/18 12:33 17:05 21:04 MCV MCH RDW [place] % (Auto) Eos % (Auto) Seg Neuts % (Manual) Lymphocytes % (Manual) Lymphocytes # (Manual) BUN Creatinine Glucose POC Glucose 124 H 146 H 132 H Hemoglobin A1c ALT TSH 12/22/18 12/22/18 12/22/18 08:06 12:44 15:46 MCV MCH RDW [place] % (Auto) Eos % (Auto) Seg Neuts % (Manual) Lymphocytes % (Manual) Lymphocytes # (Manual) BUN 23 H Creatinine Glucose 154 H POC Glucose 151 H 126 H Hemoglobin A1c ALT TSH 12/22/18 12/22/18 12/22/18 15:46 18:04 22:06 MCV MCH RDW [place] % (Auto) Eos % (Auto) Seg Neuts % (Manual) Lymphocytes % (Manual) Lymphocytes # (Manual) BUN Creatinine Glucose POC Glucose 120 H 127 H Hemoglobin A1c ALT TSH 0.064 L 12/23/18 12:40 MCV MCH RDW [place] % (Auto) Eos % (Auto) Seg Neuts % (Manual) Lymphocytes % (Manual) Lymphocytes # (Manual) BUN Creatinine Glucose POC Glucose 126 H Hemoglobin A1c ALT TSH Allied health notes reviewed: nursing
[2018-12-23] MEDS ORDERED: SOLU-Medrol IV SCH ×2 (14:00→22:00)
== END 2018-12-23 17:40 | disposition home or self-care (01) | DRG 189 ==
LOC: ED 06:03 → 4A 07:46
PROVIDERS: ADMIT Internal Medicine; ATTEND Internal Medicine
PROC: 4A033R1 Measurement of Arterial Saturation, Peripheral, Percutaneous Approach (ICD-10-PCS; principal; 2018-12-19)
PROC: 5A09357 Assistance with Respiratory Ventilation, Less than 24 Consecutive Hours, Continuous Positive Airway Pressure (ICD-10-PCS; 2018-12-19)
PROC: 5A09357 Assistance with Respiratory Ventilation, Less than 24 Consecutive Hours, Continuous Positive Airway Pressure (ICD-10-PCS; 2018-12-21)
PROC: 5A09357 Assistance with Respiratory Ventilation, Less than 24 Consecutive Hours, Continuous Positive Airway Pressure (ICD-10-PCS; 2018-12-22)
PROC: 5A09357 Assistance with Respiratory Ventilation, Less than 24 Consecutive Hours, Continuous Positive Airway Pressure (ICD-10-PCS; 2018-12-23)
DX: J96.21 Acute and chronic respiratory failure with hypoxia (principal); J44.1 Chronic obstructive pulmonary disease with (acute) exacerbation; I47.1 Supraventricular tachycardia; J96.22 Acute and chronic respiratory failure with hypercapnia; I10 Essential (primary) hypertension; E11.8 Type 2 diabetes mellitus with unspecified complications; Z66 Do not resuscitate; K21.9 Gastro-esophageal reflux disease without esophagitis; F41.9 Anxiety disorder, unspecified; F17.200 Nicotine dependence, unspecified, uncomplicated; Z99.81 Dependence on supplemental oxygen; Z79.899 Other long term (current) drug therapy; Z71.6 Tobacco abuse counseling; Z90.710 Acquired absence of both cervix and uterus
CPT/HCPCS: 36415; 71045; 80048; 80053; 82550; 82553; 82803; 82805; 82962; 83036; 83735; 83880; 84439; 84443; 84484; 85007; 85025; 93005; 93010; 93306; 94640; 94644; 94660; 94760; G0378; J0456; J0696; J1170; J1650; J2930; J7050

== ENCOUNTER 2019-02-15 14:01 | Inpatient (IN) | payer MEDICARE ==
[2019-02-15] MEDS ORDERED: MAGNESIUM SULFATE 2 GM/50 ML BAG IV ONE (14:15)
[2019-02-15] MEDS ORDERED: ALBUTEROL 2.5 MG/3 ML NEBU IH ONE ×2 (14:15→15:25)
[2019-02-15] MEDS ORDERED: methylPREDNISolone Sod Succinate 125 MG/2 ML INJ IV ONE (14:15)
[2019-02-15] MEDS ORDERED: CEFEPIME/NS 2 GM/100 ML 2 GM/100 ML BAG IV ONE (14:15)
[2019-02-15] MEDS ORDERED: IPRATROPIUM 0.02% NEBU 2.5 ML IH ONE ×2 (14:15→15:25)
[2019-02-15] MEDS ORDERED: IPRATROPIUM/ALBUTEROL SULFATE 3 ML AMPUL.NEB IH ONE ×2 (14:15→15:54)
--- NOTE | 2019-02-15 14:20 | Emergency Department Report ---
ED Shortness of Breath HPI - General Chief Complaint: Dyspnea/Respdistress Stated Complaint: KELLY Time Seen by Provider: 02/15/19 14:05 Source: patient Mode of arrival: Ambulatory Limitations: No Limitations - History of Present Illness Initial Comments: Patient is a 69-year-old female that presents emergency room with difficulty breathing and shortness of breath. States that she has a history of COPD and is on 3 L of oxygen at home. Patient states her symptoms started yesterday and there worsening. Patient states she can barely breathe. Patient states her symptoms are worse with exertion and better with rest. Patient states her nebulizers are not working. Patient states she is unable to walk even shortness is due to the shortness of breath. Patient denies pain. Patient denies chest pain. Patient states she is a DO NOT RESUSCITATE and does not want to be intubated or have CPR done. MD Complaint: shortness of breath, cough -: Sudden Severity: severe Improves With: rest Worsens With: lying flat, exertion, movement, coughing, inspiration Known History Of: COPD Associated Symptoms: cough Treatments Prior to Arrival: oxygen, bronchodilator - Related Data Home Oxygen Therapy: Yes Home Oxygen Amount: 3 Liters Home Medications Medication Instructions Recorded Confirmed Last Taken Famotidine [Pepcid] 20 mg PO BID 08/24/17 12/19/18 08/29/18 ALBUTEROL Inhaler(NF) [VENTOLIN 2 puff IH QID 08/29/18 12/19/18 12/19/18 Inhaler(NF)] Potassium Chloride [Klor-Con M20] 20 meq PO 3XW 08/29/18 12/19/18 12/18/18 metFORMIN [Glucophage] 2 tab PO BID 08/29/18 12/19/18 12/18/18 NIFEdipine XL [Procardia Xl] 60 mg PO QDAY 09/30/18 12/19/18 12/18/18 Previous Rx's Medication Instructions Recorded Last Taken Type Furosemide [Lasix TAB] 40 mg PO QDAY #30 tablet 11/29/17 12/17/18 Rx ALBUTEROL NEB's [Proventil 0.083% 2.5 mg IH QID PRN #90 nebu 09/01/18 12/19/18 Rx NEBS] Ipratropium [Atrovent NEB] 0.5 mg IH QID #90 nebu 09/01/18 Unknown Rx Losartan [Cozaar] 50 mg PO QDAY #30 tablet 09/01/18 12/18/18 Rx Benzonatate [Tessalon Perles] 100 mg PO Q8HR #30 capsule 10/02/18 Unknown Rx Budesonide/Formoterol Fumarate 1 puff IH BID #1 hfa.aer.ad 12/23/18 Unknown Rx [Symbicort 160-4.5 Mcg Inhaler] LORazepam [Ativan] 1 mg PO BID PRN #30 tablet 12/23/18 Unknown Rx Tiotropium [place] [Spiriva 1 each IH DAILY #1 mist.inhal 12/23/18 Unknown Rx Respimat] dilTIAZem CD [Cardizem CD] 120 mg PO QDAY #30 capsule 12/23/18 Unknown Rx predniSONE [Deltasone] 10 mg PO .TAPER #48 tab 12/23/18 Unknown Rx Allergies Allergy/AdvReac Type Severity Reaction Status Date / Time No Known Allergies Allergy Unverified 10/29/14 10:06 ED Review of Systems ROS: Stated complaint: KELLY Other details as noted in HPI Constitutional: denies: chills, fever Eyes: denies: eye pain, eye discharge, vision change ENT: denies: ear pain, throat pain Respiratory: cough, shortness of breath, SOB with exertion, SOB at rest, wheezing Cardiovascular: denies: chest pain, palpitations Endocrine: no symptoms reported Gastrointestinal: denies: abdominal pain, nausea, diarrhea Genitourinary: denies: urgency, dysuria, discharge Musculoskeletal: denies: back pain, joint swelling, arthralgia Skin: denies: rash, lesions Neurological: denies: headache, weakness, paresthesias Psychiatric: denies: anxiety, depression Hematological/Lymphatic: denies: easy bleeding, easy bruising ED Past Medical Hx - Past Medical History Previous Medical History?: Yes Hx Hypertension: Yes Hx Diabetes: Yes Hx COPD: Yes Hx HIV: No - Surgical History Past Surgical History?: Yes Additional Surgical History: hysterectomy - Family History Family history: no significant - Social History Smoking Status: Never Smoker Substance Use Type: None - Medications Home Medications: Home Medications Medication Instructions Recorded Confirmed Last Taken Type Famotidine [Pepcid] 20 mg PO BID 08/24/17 12/19/18 08/29/18 History Furosemide [Lasix TAB] 40 mg PO QDAY #30 tablet 11/29/17 12/19/18 12/17/18 Rx ALBUTEROL Inhaler(NF) [VENTOLIN 2 puff IH QID 08/29/18 12/19/18 12/19/18 History Inhaler(NF)] Potassium Chloride [Klor-Con M20] 20 meq PO 3XW 08/29/18 12/19/18 12/18/18 History metFORMIN [Glucophage] 2 tab PO BID 08/29/18 12/19/18 12/18/18 History ALBUTEROL NEB's [Proventil 0.083% 2.5 mg IH QID PRN #90 nebu 09/01/18 12/19/18 12/19/18 Rx NEBS] Ipratropium [Atrovent NEB] 0.5 mg IH QID #90 nebu 09/01/18 12/19/18 Unknown Rx Losartan [Cozaar] 50 mg PO QDAY #30 tablet 09/01/18 12/19/18 12/18/18 Rx NIFEdipine XL [Procardia Xl] 60 mg PO QDAY 09/30/18 12/19/18 12/18/18 History Benzonatate [Tessalon Perles] 100 mg PO Q8HR #30 capsule 10/02/18 12/19/18 Unknown Rx Budesonide/Formoterol Fumarate 1 puff IH BID #1 hfa.aer.ad 12/23/18 Unknown Rx [Symbicort 160-4.5 Mcg Inhaler] LORazepam [Ativan] 1 mg PO BID PRN #30 tablet 12/23/18 Unknown Rx Tiotropium [place] [Spiriva 1 each IH DAILY #1 mist.inhal 12/23/18 Unknown Rx Respimat] dilTIAZem CD [Cardizem CD] 120 mg PO QDAY #30 capsule 12/23/18 Unknown Rx predniSONE [Deltasone] 10 mg PO .TAPER #48 tab 12/23/18 Unknown Rx ED Physical Exam - General Limitations: No Limitations General appearance: alert, in distress - Head Head exam: Present: atraumatic, normocephalic - Eye Eye exam: Present: normal appearance - ENT ENT exam: Present: mucous membranes moist - Neck Neck exam: Present: normal inspection - Respiratory Respiratory exam: Present: respiratory distress, decreased breath sounds - Cardiovascular Cardiovascular Exam: Present: regular rate, normal rhythm. Absent: systolic murmur, diastolic murmur, rubs, gallop - GI/Abdominal GI/Abdominal exam: Present: soft, normal bowel sounds - Extremities Exam Extremities exam: Present: normal inspection - Back Exam Back exam: Present: normal inspection - Neurological Exam Neurological exam: Present: alert, oriented X3 - Psychiatric Psychiatric exam: Present: normal affect, normal mood - Skin Skin exam: Present: warm, dry, intact, normal color. Absent: rash ED Course Vital Signs 02/15/19 02/15/19 02/15/19 14:03 14:09 14:15 Temperature 97.6 F Pulse Rate 91 H 91 H Pulse Rate [ Bilateral] Respiratory 20 18 22 Rate Respiratory Rate [Bilateral ] Blood Pressure 131/71 114/69 O2 Sat by Pulse 95 97 Oximetry 02/15/19 02/15/19 02/15/19 14:31 14:36 14:45 Temperature 98.2 F Pulse Rate 99 H 94 H 93 H Pulse Rate [ Bilateral] Respiratory 26 H 20 12 Rate Respiratory Rate [Bilateral ] Blood Pressure 129/74 129/74 129/74 O2 Sat by Pulse 91 95 94 Oximetry 02/15/19 02/15/19 02/15/19 15:01 15:15 15:27 Temperature Pulse Rate 79 79 Pulse Rate [ 95 H Bilateral] Respiratory 20 18 Rate Respiratory 22 Rate [Bilateral ] Blood Pressure 119/64 119/64 O2 Sat by Pulse 97 99 Oximetry 02/15/19 02/15/19 02/15/19 15:30 15:45 16:01 Temperature Pulse Rate 73 Pulse Rate [ Bilateral] Respiratory 18 Rate Respiratory Rate [Bilateral ] Blood Pressure 114/57 114/57 133/80 O2 Sat by Pulse 99 95 96 Oximetry 02/15/19 02/15/19 02/15/19 16:15 16:30 16:45 Temperature Pulse Rate 79 Pulse Rate [ Bilateral] Respiratory 35 H Rate Respiratory Rate [Bilateral ] Blood Pressure 133/80 133/83 133/83 O2 Sat by Pulse 97 97 97 Oximetry 02/15/19 02/15/19 02/15/19 17:01 17:15 17:30 Temperature Pulse Rate 82 72 77 Pulse Rate [ Bilateral] Respiratory 19 23 16 Rate Respiratory Rate [Bilateral ] Blood Pressure 134/75 134/75 131/69 O2 Sat by Pulse 96 97 99 Oximetry 02/15/19 02/15/19 02/15/19 17:45 18:00 18:11 Temperature Pulse Rate 82 95 H Pulse Rate [ Bilateral] Respiratory 22 17 17 Rate Respiratory Rate [Bilateral ] Blood Pressure 131/69 119/68 119/68 O2 Sat by Pulse 94 97 97 Oximetry - Reevaluation(s) Reevaluation #1: Evaluation done. Patient's initial lung sounds showed a silent chest. Patient having minimal air movement. Patient is currently on a nebulizer and is starting to wheeze. 02/15/19 14:19 Reevaluation #2: Patient still having wheezing. Patient states she is less short of breath and is not having as much difficulty in breathing. Discussed all results with patient. I discussed plan of care patient. Patient agrees with plan of care and admission. Patient will be admitted to the hospital service. 02/15/19 15:53 - Consultations Consultation #1: Hospitalist consult for admission. Hospitalist admit patient. 02/15/19 15:53 ED Medical Decision Making - Lab Data Result diagrams: 02/15/19 14:20 02/15/19 14:20 - EKG Data -: EKG Interpreted by Pr EKG shows normal: axis, intervals, QRS complexes, ST-T waves Rate: normal - EKG Data Interpretation: other (atrial fibrillation) - Radiology Data Radiology results: report reviewed No acute findings on chest x-ray. - Medical Decision Making Patient is a 69-year-old female that since emergency room with complaints of difficulties breathing and shortness of breath. Patient has a history of COPD. Clinicals finding consistent with COPD exacerbation and hypoxia and respiratory distress. Patient given multiple medications. Patient's symptoms improved the ER. Patient was admitted to the hospitalist service for observation. Patient is a DO NOT RESUSCITATE and a DO NOT INTUBATE patient. Patient's labs unremark able. Patient's chest x-ray negative. Patient's EKG shows A. fib. - Differential Diagnosis sob,. copd. kelly Critical Care Time: Yes Critical care time in (mins) excluding proc time.: 35 Critical care attestation.: If time is entered above; I have spent that time in minutes in the direct care of this critically ill patient, excluding procedure time. Critical Care Time: 35 minutes ED Disposition Clinical Impression: Acute exacerbation of chronic obstructive pulmonary disease (COPD), COPD exacerbation, SOB (shortness of breath), Difficulty breathing, Hypoxia Disposition: [id number] OP ADMIT IP TO THIS HOSP Is pt being admited?: Yes Does the pt Need Aspirin: No Condition: Critical Time of Disposition: 15:53
[2019-02-15 14:42] LABS: Basophils % (Auto) 0.7 % (0.0-1.8); Eosinophils # (Auto) 0.3 K/mm3 (0.0-0.4); Eosinophils % (Auto) 6.2 % (0.0-4.3); Hematocrit 40.6 % (30.3-42.9); Lymphocytes # (Auto) 1.2 K/mm3 (1.2-5.4); Lymphocytes % (Auto) 23.9 % (13.4-35.0); Mean Corpuscular HGB Conc 32 % (30-34); Mean Corpuscular Volume 77 fl (79-97); Monocytes # (Auto) 0.6 K/mm3 (0.0-0.8); Monocytes % (Auto) 12.2 % (0.0-7.3); Platelet Count 259 K/mm3 (140-440); Red Blood Count 5.25 M/mm3 (3.65-5.03)
[2019-02-15 14:47] LABS: Creatine Kinase MB 1.2 ng/mL (0.0-4.0)
[2019-02-15 14:48] LABS: Alanine Aminotransferase 7 units/L (7-56); Albumin 4.4 g/dL (3.9-5); BUN/Creatinine Ratio 27; Blood Urea Nitrogen 19 mg/dL (7-17); Calcium 9.6 mg/dL (8.4-10.2); Hemolysis Index 6
--- NOTE | 2019-02-15 15:10 | XRay Report ---
CHEST 1 VIEW INDICATION: Dyspnea. COMPARISON: 12/19/2018 FINDINGS: Support devices: None. Heart: Within normal limits. Pulmonary vasculature: Normal. Lungs/Pleura: No acute air space or interstitial disease. Stable right basal linear scarring and prom inent interstitial markings. No pleural effusion. Additional findings: None. IMPRESSION: 1. No acute findings. Signer Name: Jin Pratt MD Signed: 02/15/2019 3:05 PM Workstation Name: [id number]
[2019-02-15] MEDS ORDERED: ACETAMINOPHEN 325 MG TAB PO PRN (15:54)
[2019-02-15] MEDS ORDERED: ONDANSETRON 4 MG/2 ML INJ IV PRN (15:54)
--- NOTE | 2019-02-15 15:54 | History and Physical Report ---
History of Present Illness Chief complaint: I cant breathe History of present illness: 69 YO Female with HTN, DM,COPD, Chronic Respiratory Failure on 3L Home Oxygen via [place] presents to ED for evaluation. Pt states that she has experienced shortness of breath over the past 2 days with worsening symptoms over the past 1 day. Pt acknowledges increased productive cough with incerased production of clear sputum. Pt also acknowledges increased nebulizer use without relief. Pt reports dypsnea on exertion, dypsnea at rest, as well as decreased exercise tolerance, and prolonged feeding time due to dypsnea with meals. Pt transported to [facility] via private vehicle. Pt seen and evaluated in ED and found to have COPD Exacerbation complicated by Acute on Chronic Hypoxemic Respiratory Failure. Pt is unable to speak in complete sentences due to shortness of breath, and is sitting forward on her bed and using accessory muscles to breathe. Pt denies fever, chills, CP, Palpitations, NVD, Trauma, BRBPR, Skin Rash, or recent ill contacts. Prior admission on 12/19/18 reviewed. All listed medication reconciled at time of admission. Past History Past Medical History: other (see hpi) Past Surgical History: hysterectomy Social history: , Lives alone. denies: smoking, alcohol abuse, prescription drug abuse Family history: diabetes, hypertension Medications and Allergies Allergies Allergy/AdvReac Type Severity Reaction Status Date / Time No Known Allergies Allergy Unverified 10/29/14 10:06 Home Medications Medication Instructions Recorded Confirmed Last Taken Type Famotidine [Pepcid] 20 mg PO BID 08/24/17 12/19/18 08/29/18 History Furosemide [Lasix TAB] 40 mg PO QDAY #30 tablet 11/29/17 12/19/18 12/17/18 Rx ALBUTEROL Inhaler(NF) [VENTOLIN 2 puff IH QID 08/29/18 12/19/18 12/19/18 History Inhaler(NF)] Potassium Chloride [Klor-Con M20] 20 meq PO 3XW 08/29/18 12/19/18 12/18/18 History metFORMIN [Glucophage] 2 tab PO BID 08/29/18 12/19/18 12/18/18 History ALBUTEROL NEB's [Proventil 0.083% 2.5 mg IH QID PRN #90 nebu 05/12/19/18 12/19/18 Rx NEBS] Ipratropium [Atrovent NEB] 0.5 mg IH QID #90 nebu 09/01/18 12/19/18 Unknown Rx Losartan [Cozaar] 50 mg PO QDAY #30 tablet 09/01/18 12/19/18 12/18/18 Rx NIFEdipine XL [Procardia Xl] 60 mg PO QDAY 09/30/18 12/19/18 12/18/18 History Benzonatate [Tessalon Perles] 100 mg PO Q8HR #30 capsule 10/02/18 12/19/18 Unknown Rx Budesonide/Formoterol Fumarate 1 puff IH BID #1 hfa.aer.ad 12/23/18 Unknown Rx [Symbicort 160-4.5 Mcg Inhaler] LORazepam [Ativan] 1 mg PO BID PRN #30 tablet 12/23/18 Unknown Rx Tiotropium [place] [Spiriva 1 each IH DAILY #1 mist.inhal 12/23/18 Unknown Rx Respimat] dilTIAZem CD [Cardizem CD] 120 mg PO QDAY #30 capsule 12/23/18 Unknown Rx predniSONE [Deltasone] 10 mg PO .TAPER #48 tab 12/23/18 Unknown Rx Review of Systems Constitutional: no weight loss, no weight gain, no fever, no chills Ears, nose, mouth and throat: no ear pain, no tinnitis, no decreased hearing, no nose pain Breasts: no change in shape, no swelling, no mass Cardiovascular: no chest pain, no palpitations, no rapid/irregular heart beat, no edema, no syncope Respiratory: cough, cough with sputum, excessive sputum, shortness of breath, dyspnea on exertion, no congestion, no wheezing Gastrointestinal: no abdominal pain, no nausea, no vomiting, no constipation, no change in bowel habits, no hematemesis Genitourinary Female: no pelvic pain, no flank pain, no menorrhagia, no dysuria, no urinary frequency, no urgency, no stress incontinence Rectal: no pain, no incontinence, no bleeding Musculoskeletal: no neck stiffness, no neck pain, no shooting arm pain, no arm numbness/tingling, no low back pain, no shooting leg pain, no leg numbness/tingling Integumentary: no rash, no pruritis, no redness, no sores, no wounds Neurological: no transient paralysis, no paralysis, no weakness, no parathesias, no numbness, no tingling, no seizures Psychiatric: no anxiety, no memory loss, no change in sleep habits, no sleep disturbances, no insomnia, no hypersomnia, no change in appetite, no change in libido Endocrine: no cold intolerance, no heat intolerance, no polyphagia, no excessive thirst, no polydipsia, no polyuria, no nocturia, no excessive sweating Hematologic/Lymphatic: no easy bruising, no easy bleeding, no lymphadenopathy, no lymphedema Allergic/Immunologic: no urticaria, no allergic rhinitis, no wheezing, no persistent infections, no anaphylaxis, no angioedema Exam - Constitutional Vitals: Temp Pulse Resp BP Pulse Ox 98.2 F 95 H 22 129/74 95 02/15/19 14:36 02/15/19 15:27 02/15/19 15:27 02/15/19 14:36 02/15/19 14:36 General appearance: Present: mild distress - EENT Eyes: Present: PERRL ENT: hearing intact, clear oral mucosa - Neck Neck: Present: supple, normal ROM - Respiratory Respiratory effort: normal, labored, accessory muscle use, stridor Respiratory: bilateral: diminished, rhonchi - Cardiovascular Heart Sounds: Present: S1 & S2. Absent: rub, click - Extremities Extremities: pulses symmetrical, No edema Peripheral Pulses: within normal limits - Abdominal General gastrointestinal: Present: soft, non-tender, non-distended, normal bowel sounds Female genitourinary: Present: normal - Integumentary Integumentary: Present: clear, warm, dry - Musculoskeletal Musculoskeletal: gait normal, strength equal bilaterally - Psychiatric Psychiatric: appropriate mood/affect, intact judgment & insight - Neurologic Neurologic: CNII-XII intact, moves all extremities Results - Labs CBC & Chem 7: 02/15/19 14:20 02/15/19 14:20 Labs: Abnormal lab results 02/15/19 02/15/19 Range/Units 14:20 14:20 RBC 5.25 H (3.65-5.03) M/mm3 MCV 77 L (79-97) fl MCH 25 L (28-32) pg RDW 18.0 H (13.2-15.2) % [place] % (Auto) 12.2 H (0.0-7.3) % Eos % (Auto) 6.2 H (0.0-4.3) % BUN 19 H (7-17) mg/dL Glucose 115 H (65-100) mg/dL Assessment and Plan - Patient Problems (1) Acute and chronic respiratory failure with hypoxia Current Visit: No Status: Acute Plan to address problem: Supplemental oxygen, nebulizer therapy, NIPPV as clinically indicated, pulse oximetry, (2) Acute exacerbation of chronic obstructive pulmonary disease (COPD) Current Visit: No Status: Acute Plan to address problem: IV steroid therapy, supplemental oxygen,nebulizer therapy, pulse oximetry, NIPPV as clinically indicated. (3) Diabetes Current Visit: Yes Status: Acute Plan to address problem: ADA diet, insulin, accu check, hypoglycemia protocol (4) GERD (gastroesophageal reflux disease) Current Visit: No Status: Chronic Qualifiers: Esophagitis presence: without esophagitis Qualified Code(s): K21.9 - Gastro-esophageal reflux disease without esophagitis Plan to address problem: PPI therapy, supportive care (5) HTN (hypertension) Current Visit: No Status: Chronic Qualifiers: Hypertension type: essential hypertension Qualified Code(s): I10 - Essential (primary) hypertension Plan to address problem: Monitor BP q shift, supportive acre. (6) DVT prophylaxis Current Visit: Yes Status: Acute Plan to address problem: SCD to BLE while in bed, prophylactic lovenox
[2019-02-15] MEDS ORDERED: LORazepam 1 MG TAB PO PRN (15:56)
[2019-02-15] MEDS: methylPREDNISolone Sod Succinate 40 MG/1 ML INJ IV SCH (21:21)
[2019-02-15] MEDS: FAMOTIDINE 20 MG TAB PO SCH (21:21)
[2019-02-15] MEDS: BENZONATATE 100 MG CAP PO SCH (21:21)
[2019-02-16] MEDS: FUROSEMIDE 40 MG TAB PO SCH (05:00)
[2019-02-16 06:52] LABS: BUN/Creatinine Ratio 28; Blood Urea Nitrogen 17 mg/dL (7-17); Calcium 9.3 mg/dL (8.4-10.2); Hemolysis Index 2
[2019-02-16] MEDS: BENZONATATE 100 MG CAP PO SCH ×3 (06:56→22:10)
--- NOTE | 2019-02-16 08:15 | Progress Note ---
Assessment and Plan Assessment and plan: 69 YO Female with HTN, DM,COPD, Chronic Respiratory Failure on 3L Home Oxygen via [place] presents to ED for evaluation. Pt states that she has experienced shortness of breath over the past 2 days with worsening symptoms over the past 1 day. Pt acknowledges increased productive cough with increased production of clear sputum. Pt also acknowledges increased nebulizer use without relief. Pt reports dypsnea on exertion, dypsnea at rest, as well as decreased exercise tolerance, and prolonged feeding time due to dypsnea with meals. Pt transported to [facility] via private vehicle. Pt seen and evaluated in ED and found to have COPD Exacerbation complicated by Acute on Chronic Hypoxemic Respiratory Failure. Pt is unable to speak in complete sentences due to shortness of breath, and is sitting forward on her bed and using accessory muscles to breathe. Pt denies fever, chills, CP, Palpitations, NVD, Trauma, BRBPR, Skin Rash, or recent ill contacts. Prior admission on 12/19/18 reviewed. All listed medication reconciled at time of admission. * On cardizem secondary to prior hx of Non sustained Vtach. No report at this time of recurrence. Echo at the time 60-65% dec 2018 * CXR reviewed and no acute findings noted * Extensive counselling on tobacco cessation >15mins provided (1) Acute and chronic respiratory failure with hypoxia-Hypercapenic Current Visit: No Status: Acute Plan to address problem: Supplemental oxygen, nebulizer therapy, NIPPV as clinically indicated, pulse oximetry, CHECK ABG. Pulmonary consult if no improvement (2) Acute exacerbation of chronic obstructive pulmonary disease (COPD) ?Bronchitis Current Visit: No Status: Acute Plan to address problem: IV steroid therapy and quick taper, supplemental oxygen,nebulizer therapy, pulse oximetry, NIPPV as clinically indicated. Rule out Influenza (3) Diabetes Current Visit: Yes Status: Acute Plan to address problem: ADA diet, insulin, accu check, hypoglycemia protocol (4) GERD (gastroesophageal reflux disease) Current Visit: No Status: Chronic Qualifiers: Esophagitis presence: without esophagitis Qualified Code(s): K21.9 - G desirae-esophageal reflux disease without esophagitis Plan to address problem: PPI therapy, supportive care (5) HTN (hypertension) Current Visit: No Status: Chronic Qualifiers: Hypertension type: essential hypertension Qualified Code(s): I10 - Ess ential (primary) hypertension Plan to address problem: Monitor BP q shift, supportive acre. (6) Anxiety Disorder prn Anxiolytics (7)DVT prophylaxis Current Visit: Yes Status: Acute Plan to address problem: SCD to BLE while in bed, prophylactic lovenox Advance directive. On review of notes from ED and also Discussing with Patient she affirms DNR status. 30 Mins Spent on advance care planning History Interval history: Patient seen and examined today, she reports some improvement in symptoms at this time but not quite at baseline. Hospitalist Physical - Constitutional Vitals: Temp Pulse Resp BP Pulse Ox 98.3 F 80 18 141/70 94 02/16/19 02:44 02/16/19 02:44 02/16/19 02:44 02/16/19 02:44 02/16/19 02:44 General appearance: Present: mild distress - EENT Eyes: Present: PERRL, EOM intact ENT: hearing intact, clear oral mucosa - Neck Neck: Present: supple, normal ROM - Respiratory Respiratory effort: normal Respiratory: bilateral: diminished - Cardiovascular Rhythm: regular Heart Sounds: Present: S1 & S2. Absent: systolic murmur, diastolic murmur - Extremities Extremities: no ischemia, pulses intact, pulses symmetrical, No edema, normal temperature, normal color, Full ROM Peripheral Pulses: within normal limits - Abdominal General gastrointestinal: soft - Integumentary Integumentary: Present: clear, warm, dry - Psychiatric Psychiatric: appropriate mood/affect, intact judgment & insight, memory intact, cooperative - Neurologic Neurologic: CNII-XII intact, moves all extremities - Allied Health Allied health notes reviewed: nursing Results - Labs CBC & Chem 7: 02/15/19 14:20 02/16/19 05:35 Labs: Laboratory Last Values WBC 5.0 K/mm3 (4.5-11.0) 02/15/19 14:20 RBC 5.25 M/mm3 (3.65-5.03) H 02/15/19 14:20 Hgb 13.0 gm/dl (10.1-14.3) 02/15/19 14:20 Hct 40.6 % (30.3-42.9) 02/15/19 14:20 MCV 77 fl (79-97) L 02/15/19 14:20 MCH 25 pg (28-32) L 02/15/19 14:20 MCHC 32 % (30-34) 02/15/19 14:20 RDW 18.0 % (13.2-15.2) H 02/15/19 14:20 Plt Count 259 K/mm3 (140-440) 02/15/19 14:20 Lymph % (Auto) 23.9 % (13.4-35.0) 02/15/19 14:20 [place] % (Auto) 12.2 % (0.0-7.3) H 02/15/19 14:20 Eos % (Auto) 6.2 % (0.0-4.3) H 02/15/19 14:20 Baso % (Auto) 0.7 % (0.0-1.8) 02/15/19 14:20 Lymph # 1.2 K/mm3 (1.2-5.4) 02/15/19 14:20 [place] # 0.6 K/mm3 (0.0-0.8) 02/15/19 14:20 Eos # 0.3 K/mm3 (0.0-0.4) 02/15/19 14:20 Baso # 0.0 K/mm3 (0.0-0.1) 02/15/19 14:20 Seg Neutrophils % 57.0 % (40.0-70.0) 02/15/19 14:20 Seg Neutrophils # 2.8 K/mm3 (1.8-7.7) 02/15/19 14:20 Sodium 140 mmol/L (137-145) 02/16/19 05:35 Potassium 4.4 mmol/L (3.6-5.0) 02/16/19 05:35 Chloride 103.0 mmol/L (98-107) 02/16/19 05:35 Carbon Dioxide 24 mmol/L (22-30) 02/16/19 05:35 Anion Gap 17 mmol/L 02/16/19 05:35 BUN 17 mg/dL (7-17) 02/16/19 05:35 Creatinine 0.6 mg/dL (0.7-1.2) L 02/16/19 05:35 Estimated GFR > 60 ml/min 02/16/19 05:35 BUN/Creatinine Ratio 28 % 02/16/19 05:35 Glucose 132 mg/dL (65-100) H 02/16/19 05:35 POC Glucose 187 (70-105) H 02/15/19 22:10 Lactic Acid 1.50 mmol/L (0.7-2.0) 02/15/19 14:20 Calcium 9.3 mg/dL (8.4-10.2) 02/16/19 05:35 Total Bilirubin 0.30 mg/dL (0.1-1.2) 02/15/19 14:20 AST 16 units/L (5-40) 02/15/19 14:20 ALT 7 units/L (7-56) 02/15/19 14:20 Alkaline Phosphatase 64 units/L (35-129) 02/15/19 14:20 Total Creatine Kinase 62 units/L (30-135) 02/15/19 14:20 CK-MB (CK-2) 1.2 ng/mL (0.0-4.0) 02/15/19 14:20 CK-MB (CK-2) Rel Index 1.9 (0-4) 02/15/19 14:20 Troponin T < 0.010 ng/mL (0.00-0.029) 02/15/19 14:20 Total Protein 7.2 g/dL (6.3-8.2) 02/15/19 14:20 Albumin 4.4 g/dL (3.9-5) 02/15/19 14:20 Albumin/Globulin Ratio 1.6 % 02/15/19 14:20 Active Medications - Current Medications Current Medications: Generic Name Dose Route Start Last Admin Trade Name Freq PRN Reason Stop Dose Admin Acetaminophen 650 mg 02/15/19 15:54 02/16/19 05:00 Tylenol PO 650 mg Q4H PRN Administration Pain MILD(1-3)/Fever >100.5/SPANN Albuterol 2.5 mg 02/15/19 15:54 Proventil IH Q4HRT PRN Shortness Of Breath Benzonatate 100 mg 02/15/19 22:00 02/16/19 06:56 Tessalon Perles PO 100 mg Q8HR NANCY Administration Diltiazem HCl 120 mg 02/16/19 10:00 Cardizem Cd PO QDAY NANCY Enoxaparin Sodium 40 mg 02/16/19 10:00 Enoxaparin SUB-Q QDAY@1000 NANCY Famotidine 20 mg 02/15/19 22:00 02/15/19 21:21 Pepcid PO 20 mg BID NANCY Administration Furosemide 40 mg 02/16/19 06:00 02/16/19 05:00 Lasix PO 40 mg DAILY@0600 NANCY Administration Azithromycin 500 mg/ Sodium 250 mls @ 250 mls/hr 02/16/19 10:00 Chloride IV 02/18/19 23:59 Q24HR COUNTS INCLUDE 234 BEDS AT THE [facility] Protocol Lorazepam 1 mg 02/15/19 15:56 Ativan PO BID PRN anxiety Losartan Potassium 50 mg 02/16/19 10:00 Cozaar PO QDAY COUNTS INCLUDE 234 BEDS AT THE [facility] Methylprednisolone Sodium Succinate 40 mg 02/15/19 22:00 02/15/19 21:21 Solu-Medrol IV 40 mg Q12HR NANCY Administration Nifedipine 60 mg 02/16/19 10:00 Procardia Xl PO QDAY NANCY Ondansetron HCl 4 mg 02/15/19 15:54 Zofran IV Q8H PRN Nausea And Vomiting Potassium Chloride 20 meq 02/16/19 10:00 K-Dur PO 3XW COUNTS INCLUDE 234 BEDS AT THE [facility] Sodium Chloride 10 ml 02/15/19 22:00 02/15/19 21:22 Sodium Chloride Flush Syringe 10 Ml IV 10 ml BID NANCY Administration Sodium Chloride 10 ml 02/15/19 15:54 Sodium Chloride Flush Syringe 10 Ml IV PRN PRN LINE FLUSH Tiotropium [place] 1 puff 02/16/19 10:00 Spiriva IH Q24HR NANCY
[2019-02-16] MEDS ORDERED: TIOTROPIUM BROMIDE IH SCH (10:00)
[2019-02-16] MEDS ORDERED: ENOXAPARIN 30 MG/0.3 ML INJ SUB-Q SCH (10:00)
[2019-02-16] MEDS: dilTIAZem CD 120 MG CAP PO SCH (10:03)
[2019-02-16] MEDS: FAMOTIDINE 20 MG TAB PO SCH ×2 (10:03→22:11)
[2019-02-16] MEDS: ENOXAPARIN 40 MG/0.4 ML INJ SUB-Q SCH (10:03)
[2019-02-16] MEDS: POTASSIUM CHLORIDE ER 20 MEQ TAB PO SCH (10:05)
[2019-02-16] MEDS: NIFEdipine XL 60 MG TAB PO SCH (10:05)
[2019-02-16] MEDS: LOSARTAN 50 MG TAB PO SCH (10:05)
[2019-02-16] MEDS: methylPREDNISolone Sod Succinate 40 MG/1 ML INJ IV SCH ×2 (10:06→22:11)
[2019-02-16] MEDS: ALBUTEROL 2.5 MG/3 ML NEBU IH PRN ×2 (10:58→23:26)
[2019-02-16] MEDS: TIOTROPIUM 18 MCG CAP INHALATION IH SCH (10:59)
[2019-02-16] MEDS: AZITHROMYCIN 500 MG in SODIUM CHLORIDE 0.9% 250ML 250 ML IV SCH (11:33)
--- NOTE | 2019-02-16 14:30 | Consultation ---
History of Present Illness Consult date: 02/16/19 Requesting physician: RODRIGUEZ WALSH Reason for consult: COPD History of present illness: PCCM CONSULT NOTE (Full dictation # [id number]) Please see dictated notes for full details Past History Past Medical History: other (see hpi) Past Surgical History: hysterectomy Social history: , Lives alone. denies: smoking, alcohol abuse, prescription drug abuse Family history: diabetes, hypertension Medications and Allergies Allergies Allergy/AdvReac Type Severity Reaction Status Date / Time No Known Allergies Allergy Unverified 10/29/14 10:06 Home Medications Medication Instructions Recorded Confirmed Last Taken Type Famotidine [Pepcid] 20 mg PO BID 08/24/17 02/16/19 02/15/19 22:00 History 20 mg Furosemide [Lasix TAB] 40 mg PO QDAY #30 tablet 11/29/17 02/16/19 02/13/19 06:00 Rx 40 mg ALBUTEROL Inhaler(NF) [VENTOLIN 2 puff IH QID 08/29/18 02/16/19 02/15/19 06:00 History Inhaler(NF)] 2 puffs Potassium Chloride [Klor-Con M20] 20 meq PO 3XW 08/29/18 02/16/19 02/13/19 History metFORMIN [Glucophage] 2 tab PO BID 08/29/18 02/16/19 02/15/19 06:00 History ALBUTEROL NEB's [Proventil 0.083% 2.5 mg IH QID PRN #90 nebu 09/01/18 02/16/19 02/15/19 06:00 Rx NEBS] 2.5 Ipratropium [Atrovent NEB] 0.5 mg IH QID #90 nebu 09/01/18 02/16/19 Unknown Rx Losartan [Cozaar] 50 mg PO QDAY #30 tablet 09/01/18 02/16/19 02/15/19 06:00 Rx NIFEdipine XL [Procardia Xl] 60 mg PO QDAY 09/30/18 02/16/19 02/15/19 History Benzonatate [Tessalon Perles] 100 mg PO Q8HR #30 capsule 10/02/18 02/16/19 02/15/19 22:00 Rx 100 mg Budesonide/Formoterol Fumarate 1 puff IH BID #1 hfa.aer.ad 12/23/18 02/16/19 02/15/19 06:00 Rx [Symbicort 160-4.5 Mcg Inhaler] 1 puff LORazepam [Ativan] 1 mg PO BID PRN #30 tablet 12/23/18 02/16/19 Unknown Rx Tiotropium [place] [Spiriva 1 each IH DAILY #1 mist.inhal 12/23/18 02/16/19 Unknown Rx Respimat] dilTIAZem CD [Cardizem CD] 120 mg PO QDAY #30 capsule 12/23/18 02/16/19 Unknown Rx predniSONE [Deltasone] 10 mg PO .TAPER #48 tab 12/23/18 02/16/19 Unknown Rx Active Meds: Active Medications Acetaminophen (Tylenol) 650 mg PO Q4H PRN PRN Reason: Pain MILD(1-3)/Fever >100.5/SPANN Last Admin: 02/16/19 05:00 Dose: 650 mg Documented by: Albuterol (Proventil) 2.5 mg IH Q4HRT PRN PRN Reason: Shortness Of Breath Last Admin: 02/16/19 10:58 Dose: 2.5 mg Documented by: Benzonatate (Tessalon Perles) 100 mg PO Q8HR [facility] Last Admin: 02/16/19 13:45 Dose: 100 mg Documented by: Diltiazem HCl (Cardizem Cd) 120 mg PO QDAY [facility] Last Admin: 02/16/19 10:03 Dose: 120 mg Documented by: Enoxaparin Sodium (Enoxaparin) 40 mg SUB-Q QDAY@1000 [facility] Last Admin: 02/16/19 10:03 Dose: 40 mg Documented by: Famotidine (Pepcid) 20 mg PO BID [facility] Last Admin: 02/16/19 10:03 Dose: 20 mg Documented by: Furosemide (Lasix) 40 mg PO DAILY@0600 [facility] Last Admin: 02/16/19 05:00 Dose: 40 mg Documented by: Azithromycin 500 mg/ Sodium (Chloride) 250 mls @ 250 mls/hr IV Q24HR [facility]; Protocol Stop: 02/18/19 23:59 Last Admin: 02/16/19 11:33 Dose: 250 mls/hr Documented by: Lorazepam (Ativan) 1 mg PO BID PRN PRN Reason: anxiety Losartan Potassium (Cozaar) 50 mg PO QDAY [facility] Last Admin: 02/16/19 10:05 Dose: 50 mg Documented by: Methylprednisolone Sodium Succinate (Solu-Medrol) 40 mg IV Q12HR [facility] Last Admin: 02/16/19 10:06 Dose: 40 mg Documented by: Nifedipine (Procardia Xl) 60 mg PO QDAY [facility] Last Admin: 02/16/19 10:05 Dose: 60 mg Documented by: Ondansetron HCl (Zofran) 4 mg IV Q8H PRN PRN Reason: Nausea And Vomiting Potassium Chloride (K-Dur) 20 meq PO MoThSa@1000 [facility] Last Admin: 02/16/19 10:05 Dose: 20 meq Documented by: Sodium Chloride (Sodium Chloride Flush Syringe 10 Ml) 10 ml IV BID [facility] Last Admin: 02/16/19 10:06 Dose: 10 ml Documented by: Sodium Chloride (Sodium Chloride Flush Syringe 10 Ml) 10 ml IV PRN PRN PRN Reason: LINE FLUSH Tiotropium [place] (Spiriva) 1 puff IH Q24HR [facility] Last Admin: 02/16/19 10:59 Dose: Not Given Documented by: Physical Examination Vital signs: Vital Signs Temp Pulse Resp BP Pulse Ox 97.6 F 91 H 20 131/71 95 02/15/19 14:03 02/15/19 14:03 02/15/19 14:03 02/15/19 14:03 02/15/19 14:03 Results - Laboratory Findings CBC and BMP: 02/15/19 14:20 02/16/19 05:35 Abnormal lab findings: Abnormal Labs 02/15/19 02/15/19 02/15/19 14:20 14:20 22:10 RBC 5.25 H MCV 77 L MCH 25 L RDW 18.0 H [place] % (Auto) 12.2 H Eos % (Auto) 6.2 H BUN 19 H Creatinine Glucose 115 H POC Glucose 187 H 02/16/19 02/16/19 02/16/19 05:35 08:02 11:19 RBC MCV MCH RDW [place] % (Auto) Eos % (Auto) BUN Creatinine 0.6 L Glucose 132 H POC Glucose 177 H 129 H
[2019-02-17] MEDS: BENZONATATE 100 MG CAP PO SCH ×3 (05:38→22:01)
[2019-02-17] MEDS: FUROSEMIDE 40 MG TAB PO SCH (05:38)
--- NOTE | 2019-02-17 07:49 | Progress Note ---
Assessment and Plan Assessment and plan: 69 YO Female with HTN, DM,COPD, Chronic Respiratory Failure on 3L Home Oxygen via [place] presents to ED for evaluation. Pt states that she has experienced shortness of breath over the past 2 days with worsening symptoms over the past 1 day. Pt acknowledges increased productive cough with increased production of clear sputum. Pt also acknowledges increased nebulizer use without relief. Pt reports dypsnea on exertion, dypsnea at rest, as well as decreased exercise tolerance, and prolonged feeding time due to dypsnea with meals. Pt transported to [facility] via private vehicle. Pt seen and evaluated in ED and found to have COPD Exacerbation complicated by Acute on Chronic Hypoxemic Respiratory Failure. Pt is unable to speak in complete sentences due to shortness of breath, and is sitting forward on her bed and using accessory muscles to breathe. Pt denies fever, chills, CP, Palpitations, NVD, Trauma, BRBPR, Skin Rash, or recent ill contacts. Prior admission on 12/19/18 reviewed. All listed medication reconciled at time of admission. * On cardizem secondary to prior hx of Non sustained Vtach. No report at this time of recurrence. Echo at the time 60-65% dec 2018 * CXR reviewed and no acute findings noted * Extensive counselling on tobacco cessation >15mins provided * ?hx of Endstage Acute on chronic combined respiratory failure with hypoxia and hypoxemia, continue O2 support, Pulmonary Consult, taper steroids, JACK, LABA AE COPD causing the above with advanced COPD: Continue Abx, steroid taper Acute Bronchitis/Fibrosis:start on augmentin. 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 Stress test done and negative. Cough: Nocturnal cough leading to panic and anxiety, will start on hycodan prn Hypertension: low salt diet, antihypertensive tobacco dependence history: encouragement given Type 2 diabetes mellitus: ssi, accuchecks GERD: continue PPI Anxiety:prn ativan DNR-advance care planning discussed for 30mins DVT/GI prophy History Interval history: Patient seen and examined today, she reports some improvement in symptoms still some baseline wheezing. No adverse event reported overnight Hospitalist Physical - Physical exam Narrative exam: General appearance: Present: mild distress - EENT Eyes: Present: PERRL, EOM intact ENT: hearing intact, clear oral mucosa - Neck Neck: Present: supple, normal ROM - Respiratory Respiratory effort: normal Respiratory: bilateral: wheezing at the bases - Cardiovascular Rhythm: regular Heart Sounds: Present: S1 & S2. Absent: systolic murmur, diastolic murmur - Extremities Extremities: no ischemia, pulses intact, pulses symmetrical, No edema, normal temperature, normal color, Full ROM Peripheral Pulses: within normal limits - Abdominal General gastrointestinal: soft - Integumentary Integumentary: Present: clear, warm, dry - Psychiatric Psychiatric: appropriate mood/affect, intact judgment & insight, memory intact, cooperative - Neurologic Neurologic: CNII-XII intact, moves all extremities - Allied Health Allied health notes reviewed: nursing - Constitutional Vitals: Temp Pulse Resp BP Pulse Ox 98.0 F 87 20 133/85 97 02/17/19 07:10 02/17/19 07:10 02/17/19 07:10 02/17/19 07:10 02/17/19 07:10 General appearance: Present: mild distress Results - Labs CBC & Chem 7: 02/15/19 14:20 02/16/19 05:35 Labs: Laboratory Last Values WBC 5.0 K/mm3 (4.5-11.0) 02/15/19 14:20 RBC 5.25 M/mm3 (3.65-5.03) H 02/15/19 14:20 Hgb 13.0 gm/dl (10.1-14.3) 02/15/19 14:20 Hct 40.6 % (30.3-42.9) 02/15/19 14:20 MCV 77 fl (79-97) L 02/15/19 14:20 MCH 25 pg (28-32) L 02/15/19 14:20 MCHC 32 % (30-34) 02/15/19 14:20 RDW 18.0 % (13.2-15.2) H 02/15/19 14:20 Plt Count 259 K/mm3 (140-440) 02/15/19 14:20 Lymph % (Auto) 23.9 % (13.4-35.0) 02/15/19 14:20 [place] % (Auto) 12.2 % (0.0-7.3) H 02/15/19 14:20 Eos % (Auto) 6.2 % (0.0-4.3) H 02/15/19 14:20 Baso % (Auto) 0.7 % (0.0-1.8) 02/15/19 14:20 Lymph # 1.2 K/mm3 (1.2-5.4) 02/15/19 14:20 [place] # 0.6 K/mm3 (0.0-0.8) 02/15/19 14:20 Eos # 0.3 K/mm3 (0.0-0.4) 02/15/19 14:20 Baso # 0.0 K/mm3 (0.0-0.1) 02/15/19 14:20 Seg Neutrophils % 57.0 % (40.0-70.0) 02/15/19 14:20 Seg Neutrophils # 2.8 K/mm3 (1.8-7.7) 02/15/19 14:20 Sodium 140 mmol/L (137-145) 02/16/19 05:35 Potassium 4.4 mmol/L (3.6-5.0) 02/16/19 05:35 Chloride 103.0 mmol/L (98-107) 02/16/19 05:35 Carbon Dioxide 24 mmol/L (22-30) 02/16/19 05:35 Anion Gap 17 mmol/L 02/16/19 05:35 BUN 17 mg/dL (7-17) 02/16/19 05:35 Creatinine 0.6 mg/dL (0.7-1.2) L 02/16/19 05:35 Estimated GFR > 60 ml/min 02/16/19 05:35 BUN/Creatinine Ratio 28 % 02/16/19 05:35 Glucose 132 mg/dL (65-100) H 02/16/19 05:35 POC Glucose 141 (70-105) H 02/17/19 07:20 Lactic Acid 1.50 mmol/L (0.7-2.0) 02/15/19 14:20 Calcium 9.3 mg/dL (8.4-10.2) 02/16/19 05:35 Total Bilirubin 0.30 mg/dL (0.1-1.2) 02/15/19 14:20 AST 16 units/L (5-40) 02/15/19 14:20 ALT 7 units/L (7-56) 02/15/19 14:20 Alkaline Phosphatase 64 units/L (35-129) 02/15/19 14:20 Total Creatine Kinase 62 units/L (30-135) 02/15/19 14:20 CK-MB (CK-2) 1.2 ng/mL (0.0-4.0) 02/15/19 14:20 CK-MB (CK-2) Rel Index 1.9 (0-4) 02/15/19 14:20 Troponin T < 0.010 ng/mL (0.00-0.029) 02/15/19 14:20 Total Protein 7.2 g/dL (6.3-8.2) 02/15/19 14:20 Albumin 4.4 g/dL (3.9-5) 02/15/19 14:20 Albumin/Globulin Ratio 1.6 % 02/15/19 14:20 Active Medications - Current Medications Current Medications: Generic Name Dose Route Start Last Admin Trade Name Freq PRN Reason Stop Dose Admin Acetaminophen 650 mg 02/15/19 15:54 02/16/19 05:00 Tylenol PO 650 mg Q4H PRN Administration Pain MILD(1-3)/Fever >100.5/SPANN Albuterol 2.5 mg 02/17/19 08:00 Proventil IH TIDRT NANCY Benzonatate 100 mg 02/15/19 22:00 02/17/19 05:38 Tessalon Perles PO 100 mg Q8HR NANCY Administration Diltiazem HCl 120 mg 02/16/19 10:00 02/16/19 10:03 Cardizem Cd PO 120 mg QDAY NANCY Administration Enoxaparin Sodium 40 mg 02/16/19 10:00 02/16/19 10:03 Enoxaparin SUB-Q 40 mg QDAY@1000 NANCY Administration Famotidine 20 mg 02/15/19 22:00 02/16/19 22:11 Pepcid PO 20 mg BID NANCY Administration Furosemide 40 mg 02/16/19 06:00 02/17/19 05:38 Lasix PO 40 mg DAILY@0600 NANCY Administration Azithromycin 500 mg/ Sodium 250 mls @ 250 mls/hr 02/16/19 10:00 02/16/19 11:33 Chloride IV 02/18/19 23:59 250 mls/hr Q24HR NANCY Administration Protocol Lorazepam 1 mg 02/15/19 15:56 02/16/19 22:10 Ativan PO 1 mg BID PRN Administration anxiety Losartan Potassium 50 mg 02/16/19 10:00 02/16/19 10:05 Cozaar PO 50 mg QDAY NANCY Administration Methylprednisolone Sodium Succinate 40 mg 02/15/19 22:00 02/16/19 22:11 Solu-Medrol IV 40 mg Q12HR NANCY Administration Nifedipine 60 mg 02/16/19 10:00 02/16/19 10:05 Procardia Xl PO 60 mg QDAY NANCY Administration Ondansetron HCl 4 mg 02/15/19 15:54 Zofran IV Q8H PRN Nausea And Vomiting Potassium Chloride 20 meq 02/16/19 10:00 02/16/19 10:05 K-Dur PO 20 meq MoThSa@1000 NANCY Administration Sodium Chloride 10 ml 02/15/19 22:00 02/16/19 22:11 Sodium Chloride Flush Syringe 10 Ml IV 10 ml BID NANCY Administration Sodium Chloride 10 ml 02/15/19 15:54 Sodium Chloride Flush Syringe 10 Ml IV PRN PRN LINE FLUSH Tiotropium [place] 1 puff 02/16/19 10:00 02/16/19 10:59 Spiriva IH Not Given Q24HR NANCY Nutrition/Malnutrition Assess - Dietary Evaluation Nutrition/Malnutrition Findings: Nutrition Notes Start: 02/16/19 11:31 Freq: Status: Active Protocol: Document 02/16/19 11:31 CC (Rec: 02/16/19 12:19 CC [id number]) Co-Sign 02/16/19 11:31 LM Nutrition Notes Need for Assessment generated from: manager document Initial or Follow up Brief Note Current Diagnosis COPD,Diabetes,Hypertension Current Diet cardiac/const CHO Labs/Tests reviewed Pertinent Medications Lasix Height 5 ft 5 in Weight 83.5 kg [place] Body Weight (kg) 56.81 BMI 30.6 Weight Status Overweight Subjective/Other Information Skin risk assement score </=18 screen. Pt note reported skin risk score of 21, pt not seen . Burn Absent Trauma Absent Nutrition Intervention Revisit per MD consult or patient Sign Off request:
[2019-02-17] MEDS: ALBUTEROL 2.5 MG/3 ML NEBU IH SCH ×2 (08:10→13:19)
[2019-02-17] MEDS: ENOXAPARIN 40 MG/0.4 ML INJ SUB-Q SCH (09:32)
[2019-02-17] MEDS: NIFEdipine XL 60 MG TAB PO SCH (09:33)
[2019-02-17] MEDS: dilTIAZem CD 120 MG CAP PO SCH (09:33)
[2019-02-17] MEDS: FAMOTIDINE 20 MG TAB PO SCH ×2 (09:33→22:01)
[2019-02-17] MEDS: AMOXICILLIN/K CLAV 875/125MG TAB PO SCH ×2 (09:34→22:01)
[2019-02-17] MEDS: AZITHROMYCIN 500 MG in SODIUM CHLORIDE 0.9% 250ML 250 ML IV SCH (09:34)
[2019-02-17] MEDS: LOSARTAN 50 MG TAB PO SCH (09:34)
[2019-02-17] MEDS: methylPREDNISolone Sod Succinate 40 MG/1 ML INJ IV SCH ×2 (09:34→22:01)
--- NOTE | 2019-02-17 12:53 | Progress Note ---
Assessment and Plan Acute on chronic combined hypoxic-hypercapnic respiratory failure AE COPD h/o Hypertension h/o Tobacco use disorder/nicotine dependence Type 2 diabetes mellitus GERD Anxiety disorder - Continue with BIPAP qhs and prn - continue supplemental oxygen to keep O2 sats 88-90% - continue bronchodilators with pulmonary hygiene per RT (JACK/SADIE) - VTE prophylaxis - continue systemic steroids with a quick taper (tapered to 40 mg IV q12h) - complete 5 day course of antibiotics - Ambulate and increase activity as tolerated - continue accuchecks with glycemic control per SSI to keep blood glucose < 180 mg/dL - continue chronic home medications - Anxiety management / prn anxiolytics - Continue famotidine for GERD - continued tobacco abstinence encouraged ... re-evaluate in am & prn Subjective Date of service: 02/17/19 Principal diagnosis: Acute on chronic hypoxemic resp failure; AE COPD ; Hypertension Interval history: Patient is seen today for: Acute on chronic hypoxemic respiratory failure; AE- COPD ; h/o Hypertension; h/o Tobacco use disorder/nicotine dependence; Type 2 diabetes mellitus; GERD; Anxiety disorder Seen and examined at bedside; 24hour events reviewed; nursing and respiratory care staff consulted; no adverse overnight events reported to me; resting peacefully in bed; no acute distress; No N/V/F/C Objective Vital Signs - 12hr 02/17/19 02/17/19 02/17/19 01:57 07:10 08:09 Temperature 97.7 F 98.0 F Pulse Rate 68 87 Pulse Rate [ Bilateral] Respiratory 20 20 Rate Respiratory Rate [Bilateral ] Blood Pressure 124/67 133/85 O2 Sat by Pulse 93 97 97 Oximetry 02/17/19 02/17/19 02/17/19 08:10 09:33 10:00 Temperature Pulse Rate 73 70 Pulse Rate [ 72 Bilateral] Respiratory Rate Respiratory 18 Rate [Bilateral ] Blood Pressure 122/54 O2 Sat by Pulse Oximetry CBC and BMP: 02/15/19 14:20 02/16/19 05:35 Abnormal lab findings: Abnormal Labs 02/15/19 02/15/19 02/15/19 14:20 14:20 22:10 RBC 5.25 H MCV 77 L MCH 25 L RDW 18.0 H [place] % (Auto) 12.2 H Eos % (Auto) 6.2 H BUN 19 H Creatinine Glucose 115 H POC Glucose 187 H 02/16/19 02/16/19 02/16/19 05:35 08:02 11:19 RBC MCV MCH RDW [place] % (Auto) Eos % (Auto) BUN Creatinine 0.6 L Glucose 132 H POC Glucose 177 H 129 H 02/16/19 02/16/19 02/17/19 16:13 23:00 07:20 RBC MCV MCH RDW [place] % (Auto) Eos % (Auto) BUN Creatinine Glucose POC Glucose 139 H 139 H 141 H 02/17/19 11:27 RBC MCV MCH RDW [place] % (Auto) Eos % (Auto) BUN Creatinine Glucose POC Glucose 111 H
[2019-02-17] MEDS: TIOTROPIUM 18 MCG CAP INHALATION IH SCH (13:15)
[2019-02-17] MEDS: BUDESONIDE 0.5 MG/2 ML NEBU IH SCH ×2 (13:18→19:01)
[2019-02-17] MEDS: IPRATROPIUM/ALBUTEROL SULFATE 3 ML AMPUL.NEB IH SCH ×2 (13:18→19:01)
[2019-02-17] MEDS ORDERED: ALBUTEROL 2.5 MG/3 ML NEBU IH PRN (13:25)
--- NOTE | 2019-02-18 01:26 | Consultation ---
PULMONARY CONSULT NOTE CONSULTING PHYSICIAN: Dr. Carvajal. REASON FOR CONSULTATION 1. Acute COPD exacerbation. 2. Acute on chronic hypoxemic respiratory failure. CHIEF COMPLAINT AND HISTORY OF PRESENT ILLNESS: The patient is a 69-year-old -[place] female, office patient of ours with past medical history significant for 3 liters nasal cannula home oxygen dependent, COPD, who came into the Emergency Room complaining of about 2-3 days of shortness of breath over baseline, increasing dyspnea on exertion, a feeling of chest tightness, unable to get air in. Denied any chest pain. Denied any hemoptysis. She had a cough productive of clear phlegm that was really about baseline amount of production. She denied any sick contacts. She denied medication noncompliance. She does have a history of tobacco abuse, but quit smoking, I believe in 2005. Despite continuing her home treatments and medications, her symptoms worsened, so she came into the Emergency Room. She admitted to an episode of vomiting a few days back, but denied any overt aspiration and did not really notice any temporal relationship with her symptoms. She came to the Emergency Room, found to be in the throes of an acute COPD exacerbation. She was needing about 5 liters of oxygen, in other words, 2 liters above baseline. She was tripoding and using accessory muscles of respiration. She was admitted to the hospital. We are asked to assist with management. When I stopped by to see her, she was feeling a little bit better, still with a little bit labored breathing, resting in bed. She denies any new onset leg pain or swelling either unilaterally or bilaterally or any suggestion of venous thromboembolic phenomenon. Denies any long distance travel. This really is as much of the history of presentation as I have. PAST MEDICAL HISTORY: COPD, hypertension, and diabetes. She is obese. PAST SURGICAL HISTORY: She has had a hysterectomy. MEDICATIONS: She was on at the time I stopped by to see her were reviewed. Pertinent medications include the following: Tylenol 650 mg p.o. q. 4 hours p.r.n. mild pain or fevers, albuterol nebulizer treatments 2.5 mg nebulized q. 4 hours p.r.n. shortness of breath, Tessalon Perles 100 mg p.o. q. 8 hours scheduled, Cardizem-CD 120 mg p.o. daily, Lovenox 40 mg subcutaneous daily, Pepcid 20 mg p.o. b.i.d., Lasix 40 mg p.o. daily, Zithromax 500 mg IV daily p.r.n., Ativan 1 mg p.o. b.i.d. p.r.n. anxiety, losartan 50 mg p.o. daily, Solu-Medrol 40 mg IV q. 12 hours, Procardia-XL 60 mg p.o. daily, Zofran 4 mg IV q. 8 hours p.r.n. nausea and vomiting, and Spiriva 1 puff nebulized q. 24 hours. ALLERGIES: No known drug allergies. DIET: Obese lady. No significant weight loss or gain since I have last seen her. FAMILY AND SOCIAL HISTORY: Lives in the community. She has a remote 10+ pack year tobacco smoking history. No current alcohol, tobacco, or illicit drug use or abuse. She lives alone. There is a family history of diabetes and hypertension. REVIEW OF SYSTEMS: No loss of consciousness. No new onset seizures. No new onset focal weakness. No gross hematochezia or melena. No gross hematuria. She has had increasing dyspnea on exertion. She denies polydipsia or polyuria. She denies heat or cold intolerance. She denies any new onset periods of sadness or elation as may be consistent with psychiatric disorder. Complete 13-system review of systems obtained. Pertinent positives and/or negatives as in body of history above, otherwise are noncontributory. PHYSICAL EXAMINATION: VITAL SIGNS: At presentation, she was afebrile, temperature 97.6 degrees Fahrenheit, pulse of 91, respiratory rate of 20, blood pressure 131/71, O2 sats were 95% on 5 liters nasal cannula at that time. GENERAL: She is an elderly looking obese -[place] female, normocephalic, atraumatic, talking to me in full sentences, but with mildly increased respiratory distress at rest. HEAD, EYES, EARS, NOSE AND THROAT: She was anicteric, no conjunctival erythema. Oropharynx was moist. Mallampati #3 oropharynx. Large neck circumference. No gross jugular venous distention, no thyromegaly. NECK: Grossly, there were no palpable lymph nodes in the supraclavicular or submandibular lymph node chains. LUNGS: Auscultation of both lung macdonald significant for diminished bilateral air movement, prolonged expiratory phase, faint expiratory wheezing anteriorly. No rales or rhonchi. HEART: Heart sounds 1 and 2 are heard. They were regular in rate and rhythm at time of my evaluation without overt rubs or murmurs. ABDOMEN: Soft, full, protuberant, but not distended. Bowel sounds are positive, nontender, no palpable hepatosplenomegaly. EXTREMITIES: Without overt digital clubbing or cyanosis. No pedal edema. Pedal pulses are palpable bilaterally, 2+. NEUROLOGIC: Pupils are equal, round, reactive to light. Extraocular muscle movements were intact. They were about 4 mm. She moved all 4 extremities spontaneously. PSYCHIATRIC: Her mood was normal. Her affect was really anxious. SKIN: Normal turgor without overt cellulitis or rash. LABORATORY DATA: From my review were as follows: Admission white cell count was 5000, hemoglobin of 13.0, hematocrit of 40.6, platelet count of 259. No manual differential. Serum sodium 142, potassium 4.0, chloride 103, bicarb 25, BUN 19, creatinine 0.7, glucose was 115. Lactic acid was within normal limits. Liver function within normal limits. Troponin within normal limits. No microbiology studies. A chest x-ray was done. I have reviewed the chest x-ray. I have also reviewed the radiologist's interpretation and no acute process. She does have the evidence of hyperinflation with flattening of the right hemidiaphragm, increased interstitial markings, particularly in the bases, mostly chronic looking. No pleural effusions, no focal infiltrates, no pneumothorax. ASSESSMENT: 1. Acute on chronic hypoxemic respiratory failure with increased oxygen requirements. 2. Acute chronic obstructive pulmonary disease exacerbation. 3. Obesity, possible obstructive sleep apnea. 4. Cardiomyopathy non-characterized. 5. Diabetes. 6. Hyperlipidemia. 7. Anxiety. 8. History of hypertension. PLAN: We will continue current treatments. I have a really low pretest probability for possible venous thromboembolic phenomenon. She is beginning to show some improvement. I agree with community-acquired pneumonia therapy. I agree with systemic corticosteroids. I agree with long-acting bronchodilators in the form of Spiriva. I will go ahead and schedule in the short acting DuoNebs. I will do 1 ampule scheduled t.i.d. I will also begin long inhaled corticosteroids as well. She can complete empiric antibiotic therapy. She is appropriately on GI and DVT prophylaxis. Weight loss has also been counseled. Outpatient pulmonary rehab will be attempted to be scheduled for her. We will use anxiolytics sparingly to prevent watching out for respiratory depression. Flu and pneumonia vaccination have been addressed per protocol. Thank you very much for the consult, Dr. Carvajal. We will follow along and make further recommendations as picture progresses/becomes clearer. JOB# [id number] LATHA/NTS
[2019-02-18] MEDS: FUROSEMIDE 40 MG TAB PO SCH (06:20)
[2019-02-18] MEDS: BENZONATATE 100 MG CAP PO SCH ×2 (06:20→13:11)
[2019-02-18] MEDS: IPRATROPIUM/ALBUTEROL SULFATE 3 ML AMPUL.NEB IH SCH ×2 (07:25→13:31)
[2019-02-18] MEDS: BUDESONIDE 0.5 MG/2 ML NEBU IH SCH (07:25)
--- NOTE | 2019-02-18 09:16 | Progress Note ---
Assessment and Plan Acute on chronic combined hypoxic-hypercapnic respiratory failure AE COPD h/o Hypertension h/o Tobacco use disorder/nicotine dependence Type 2 diabetes mellitus GERD Anxiety disorder - Continue with BIPAP qhs and prn - continue supplemental oxygen to keep O2 sats 88-90%, oxygen restrictive strategies - continue bronchodilators with pulmonary hygiene per RT (JACK/SADIE) - VTE prophylaxis - continue steroids with a quick taper- change to oral - complete 5 day course of antibiotics - Ambulate and increase activity as tolerated - continue accucheck with glycemic control target blood glucose < 180 mg/dL - continue chronic home medications - Anxiety management / prn anxiolytics - Continue famotidine for GERD - Smoking cessation counselling done a the bedside for 5 minutes. Oxygen safety discussed at length -Needs outpatient pulmonary follow up on discharge. Asked the patient to make an early appointment on discharge -Discharge planning per primary service Subjective Date of service: 02/18/19 Principal diagnosis: Acute on chronic hypoxemic resp failure; AE COPD ; Hypertension Interval history: Patient is seen today for: Acute on chronic hypoxemic respiratory failure; AE- COPD ; h/o Hypertension; h/o Tobacco use disorder/nicotine dependence; Type 2 diabetes mellitus; GERD; Anxiety disorder Seen and examined at bedside; 24hour events reviewed; nursing and respiratory care staff consulted; no adverse overnight events reported to me; resting peacefully in bed in supplemental oxygen; no acute distress; No chest pain, baseline shortness of breath, no fevers or chills. No cough, no nausea or vomiting Objective - Exam Narrative Exam: General appearance: Present: mild distress, on supplemental oxyge Cushingnoid facies - EENT Eyes: Present: PERRL, EOM intact ENT: hearing intact, clear oral mucosa - Neck Neck: Present: supple, normal ROM - Respiratory Respiratory effort: normal Respiratory: bilateral: wheezing at the bases IMPROVED - Cardiovascular Rhythm: regular Heart Sounds: Present: S1 & S2. Absent: systolic murmur, diastolic murmur - Extremities Extremities: no ischemia, pulses intact, pulses symmetrical, No edema, normal temperature, normal color, Full ROM Peripheral Pulses: within normal limits - Abdominal General gastrointestinal: soft, obese, NT,ND - Integumentary Integumentary: Present: clear, warm, dry - Psychiatric Psychiatric: appropriate mood/affect, intact judgment & insight, memory intact, cooperative - Neurologic Neurologic: CNII-XII intact, moves all extremities - Allied Health Allied health notes reviewed: nursing Vital Signs - 12hr 02/17/19 02/17/19 02/18/19 21:21 23:00 02:41 Temperature 98.3 F Pulse Rate 76 Pulse Rate [ Bilateral] Respiratory 20 18 Rate Respiratory Rate [Bilateral ] Blood Pressure 131/70 Blood Pressure 107/56 [Right] O2 Sat by Pulse 95 92 Oximetry 02/18/19 02/18/19 02/18/19 07:26 07:27 08:15 Temperature 97.6 F Pulse Rate 67 Pulse Rate [ 85 Bilateral] Respiratory 18 Rate Respiratory 18 Rate [Bilateral ] Blood Pressure 128/59 Blood Pressure [Right] O2 Sat by Pulse 96 95 Oximetry CBC and BMP: 02/15/19 14:20 02/16/19 05:35 Abnormal lab findings: Abnormal Labs 02/15/19 02/15/19 02/15/19 14:20 14:20 22:10 RBC 5.25 H MCV 77 L MCH 25 L RDW 18.0 H [place] % (Auto) 12.2 H Eos % (Auto) 6.2 H BUN 19 H Creatinine Glucose 115 H POC Glucose 187 H 02/16/19 02/16/19 02/16/19 05:35 08:02 11:19 RBC MCV MCH RDW [place] % (Auto) Eos % (Auto) BUN Creatinine 0.6 L Glucose 132 H POC Glucose 177 H 129 H 02/16/19 02/16/19 02/17/19 16:13 23:00 07:20 RBC MCV MCH RDW [place] % (Auto) Eos % (Auto) BUN Creatinine Glucose POC Glucose 139 H 139 H 141 H 02/17/19 02/17/19 02/17/19 11:27 16:25 23:17 RBC MCV MCH RDW [place] % (Auto) Eos % (Auto) BUN Creatinine Glucose POC Glucose 111 H 147 H 110 H 02/18/19 07:57 RBC MCV MCH RDW [place] % (Auto) Eos % (Auto) BUN Creatinine Glucose POC Glucose 113 H
--- NOTE | 2019-02-18 10:48 | Discharge Summary ---
Providers - Providers Date of Admission: 02/16/19 13:16 Attending physician: RODRIGUEZ WALSH MD 02/16/19 13:15 Consult to Physician [CONS] Routine Comment: DR. WEBER seen pat. /toro Consulting Provider: DEVANTE WEBER Physician Instructions: Reason For Exam: COPD EXACERBATION 02/17/19 11:15 Physical Therapy Evaluation and Treat [CONS] Routine Comment: Reason For Exam: Weakness Primary care physician: ORDNANCE HANDLER Hospitalization Reason for admission: shortness of breath Condition: Stable Hospital course: 69 YO Female with HTN, DM,COPD, Chronic Respiratory Failure on 3L Home Oxygen via [place] presents to ED for evaluation. Pt states that she has experienced shortness of breath over the past 2 days with worsening symptoms over the past 1 day. Pt acknowledges increased productive cough with increased production of clear sputum. Pt also acknowledges increased nebulizer use without relief. Pt reports dypsnea on exertion, dypsnea at rest, as well as decreased exercise tolerance, and prolonged feeding time due to dypsnea with meals. Pt transported to [facility] via private vehicle. Pt seen and evaluated in ED and found to have COPD Exacerbation complicated by Acute on Chronic Hypoxemic Respiratory Failure. Pt is unable to speak in complete sentences due to shortness of breath, and is sitting forward on her bed and using accessory muscles to breathe. Pt denies fever, chills, CP, Palpitations, NVD, Trauma, BRBPR, Skin Rash, or recent ill contacts. Prior admission on 12/19/18 reviewed. All listed medication reconciled at time of admission. * On cardizem secondary to prior hx of Non sustained Vtach. No report at this time of recurrence. Echo at the time 60-65% dec 2018 * CXR reviewed and no acute findings noted * Extensive counselling on tobacco cessation >15mins provided * ?hx of Endstage Acute on chronic combined respiratory failure with hypoxia and hypoxemia, patient improved on LABA, JACK and steroids taper. Back to baseline and stable for discharge AE COPD causing the above with advanced COPD: TREATED with abx, steroid taper Acute Bronchitis/Fibrosis:start on augmentin. Endstage condition per patient. Hence frequent readmission No chest pain during this admission Cough: Nocturnal cough leading to panic and anxiety, Hypertension: low salt diet, antihypertensive tobacco dependence history: encouragement given Type 2 diabetes mellitus: ssi, accuchecks GERD: continue PPI Anxiety:prn ativan Disposition: DC/TX-06 HOME UNDER HOME HL Time spent for discharge: 35 MINS Core Measure Documentation - Palliative Care Palliative Care/ Comfort Measures: Not Applicable - Core Measures Any of the following diagnoses?: none Exam - Physical Exam Narrative exam: General appearance: Present: mild distress - EENT Eyes: Present: PERRL, EOM intact ENT: hearing intact, clear oral mucosa - Neck Neck: Present: supple, normal ROM - Respiratory Respiratory effort: normal Respiratory: bilateral: wheezing at the bases IMPROVED - Cardiovascular Rhythm: regular Heart Sounds: Present: S1 & S2. Absent: systolic murmur, diastolic murmur - Extremities Extremities: no ischemia, pulses intact, pulses symmetrical, No edema, normal temperature, normal color, Full ROM Peripheral Pulses: within normal limits - Abdominal General gastrointestinal: soft - Integumentary Integumentary: Present: clear, warm, dry - Psychiatric Psychiatric: appropriate mood/affect, intact judgment & insight, memory intact, cooperative - Neurologic Neurologic: CNII-XII intact, moves all extremities - Allied Health Allied health notes reviewed: nursing - Constitutional Vitals: Temp Pulse Resp BP Pulse Ox 97.6 F 67 18 128/59 95 02/18/19 08:15 02/18/19 08:15 02/18/19 08:15 02/18/19 08:15 02/18/19 08:15 Plan Activity: advance as tolerated, fall precautions Diet: low fat, diabetic Special Instructions: record daily BP diary Follow up with: PRIMARY MD VERO [Primary Care Provider] - 7 Days NIRMALA JAMESON MD [Staff Physician] - 7 Days Prescriptions: Ipratropium [Atrovent NEB] 0.5 mg IH QID #90 nebu Amoxicillin/K Clav Tab [Augmentin 875MG TAB] 1 each PO Q12HR #6 tablet predniSONE [Deltasone] 10 mg PO .TAPER #48 tab ALBUTEROL NEB's [Proventil 0.083% NEBS] 2.5 mg IH QID PRN #90 nebu PRN Reason: Wheezing Tiotropium [place] [Spiriva Respimat] 1 each IH DAILY #1 mist.inhal Budesonide/Formoterol Fumarate [Symbicort 160-4.5 Mcg Inhaler] 1 puff IH BID #1 hfa.aer.ad
[2019-02-18] MEDS: AMOXICILLIN/K CLAV 875/125MG TAB PO SCH (11:19)
[2019-02-18] MEDS: FAMOTIDINE 20 MG TAB PO SCH (11:19)
[2019-02-18] MEDS: POTASSIUM CHLORIDE ER 20 MEQ TAB PO SCH (11:20)
[2019-02-18] MEDS: NIFEdipine XL 60 MG TAB PO SCH (11:20)
[2019-02-18] MEDS: dilTIAZem CD 120 MG CAP PO SCH (11:20)
[2019-02-18] MEDS: ENOXAPARIN 40 MG/0.4 ML INJ SUB-Q SCH (11:21)
[2019-02-18] MEDS: methylPREDNISolone Sod Succinate 40 MG/1 ML INJ IV SCH (11:21)
[2019-02-18] MEDS: LOSARTAN 50 MG TAB PO SCH (11:21)
[2019-02-18] MEDS: AZITHROMYCIN 500 MG in SODIUM CHLORIDE 0.9% 250ML 250 ML IV SCH (13:06)
[2019-02-18 13:57] VITALS: BP 139/77
== END 2019-02-18 17:00 | disposition home or self-care (01) | DRG 189 ==
LOC: ED 14:01 → 2B-ACE 15:54 → OBSVTOIN 02-16 13:16
PROVIDERS: ADMIT Internal Medicine; ATTEND Internal Medicine
DX: J96.21 Acute and chronic respiratory failure with hypoxia (principal); J44.1 Chronic obstructive pulmonary disease with (acute) exacerbation; J44.0 Chronic obstructive pulmonary disease with (acute) lower respiratory infection; I42.9 Cardiomyopathy, unspecified; J20.9 Acute bronchitis, unspecified; I10 Essential (primary) hypertension; E11.9 Type 2 diabetes mellitus without complications; F17.200 Nicotine dependence, unspecified, uncomplicated; K21.9 Gastro-esophageal reflux disease without esophagitis; F41.9 Anxiety disorder, unspecified; J96.22 Acute and chronic respiratory failure with hypercapnia; E66.9 Obesity, unspecified; Z66 Do not resuscitate; Z90.710 Acquired absence of both cervix and uterus; Z99.81 Dependence on supplemental oxygen; Z79.899 Other long term (current) drug therapy; Z82.49 Family history of ischemic heart disease and other diseases of the circulatory system; Z83.3 Family history of diabetes mellitus
CPT/HCPCS: 36415; 71045; 80048; 80053; 82140; 82550; 82553; 82962; 84484; 85025; 93005; 93010; 94640; 94644; 94760; 96365; 96367; 96372; 96375; G0378; J0456; J0692; J1650; J2920; J2930; J3475; J7050

== ENCOUNTER 2019-03-16 15:51 | Inpatient (IN) | payer MEDICARE ==
[2019-03-16] MEDS ORDERED: FUROSEMIDE 40 MG/4 ML INJ IV ONE (16:06)
--- NOTE | 2019-03-16 16:13 | Emergency Department Report ---
ED Shortness of Breath HPI - General Stated Complaint: MADONNA Time Seen by Provider: 03/16/19 16:06 - History of Present Illness Initial Comments: Patient is 69 years old female with history of COPD and congestive heart failure. Patient presented to the ER via EMS complaining of shortness of breath and difficulty breathing. Patient stated the symptoms started last night and get worse this afternoon. Patient denied any chest pain, fever or chills. She received albuterol, Solu-Medrol and 2 g of magnesium sulfate by EMS. Patient initial oxygen saturation was 89% on room air improved to 96% with mask. MD Complaint: shortness of breath, cough -: Last night Severity: severe Pain Scale: 7 Known History Of: COPD, congestive heart failure Treatments Prior to Arrival: oxygen, bronchodilator - Related Data Home Medications Medication Instructions Recorded Confirmed Last Taken Potassium Chloride [Klor-Con M20] 20 meq PO 3XW 08/29/18 03/16/19 03/15/19 metFORMIN [Glucophage] 2 tab PO BID 08/29/18 03/16/19 03/15/19 NIFEdipine XL [Procardia Xl] 60 mg PO QDAY 09/30/18 03/16/19 03/15/19 Irbesartan 150 mg PO QDAY 03/16/19 03/16/19 03/15/19 Previous Rx's Medication Instructions Recorded Last Taken Type Furosemide [Lasix TAB] 40 mg PO QDAY #30 tablet 11/29/17 03/15/19 Rx LORazepam [Ativan] 1 mg PO BID PRN #30 tablet 12/23/18 03/15/19 Rx predniSONE [Deltasone] 10 mg PO .TAPER #48 tab 02/17/19 03/15/19 Rx Allergies Allergy/AdvReac Type Severity Reaction Status Date / Time No Known Allergies Allergy Unverified 10/29/14 10:06 ED Review of Systems ROS: Stated complaint: MADONNA Other details as noted in HPI Comment: All other systems reviewed and negative Constitutional: denies: chills, fever Respiratory: cough, orthopnea, shortness of breath, SOB with exertion, SOB at rest, wheezing Cardiovascular: denies: chest pain, palpitations, dyspnea on exertion Gastrointestinal: denies: abdominal pain, nausea, vomiting, diarrhea, constipation, hematemesis, hematochezia Musculoskeletal: denies: back pain Neurological: denies: headache, weakness, numbness, paresthesias, confusion ED Past Medical Hx - Past Medical History Hx Hypertension: Yes Hx Diabetes: Yes Hx COPD: Yes Hx HIV: No - Surgical History Additional Surgical History: hysterectomy - Social History Smoking Status: Never Smoker Substance Use Type: None - Medications Home Medications: Home Medications Medication Instructions Recorded Confirmed Last Taken Type Furosemide [Lasix TAB] 40 mg PO QDAY #30 tablet 11/29/17 03/16/19 03/15/19 Rx Potassium Chloride [Klor-Con M20] 20 meq PO 3XW 08/29/18 03/16/19 03/15/19 History metFORMIN [Glucophage] 2 tab PO BID 08/29/18 03/16/19 03/15/19 History NIFEdipine XL [Procardia Xl] 60 mg PO QDAY 09/30/18 03/16/19 03/15/19 History LORazepam [Ativan] 1 mg PO BID PRN #30 tablet 12/23/18 03/16/19 03/15/19 Rx predniSONE [Deltasone] 10 mg PO .TAPER #48 tab 02/17/19 03/16/19 03/15/19 Rx Irbesartan 150 mg PO QDAY 03/16/19 03/16/19 03/15/19 History ED Physical Exam - General General appearance: alert, in distress (moderate respiratory distress) - Head Head exam: Present: atraumatic, normocephalic, normal inspection - Eye Eye exam: Present: normal appearance - ENT ENT exam: Present: normal exam, normal orophraynx, mucous membranes moist - Neck Neck exam: Present: normal inspection, full ROM. Absent: tenderness, meningismus, lymphadenopathy, thyromegaly - Respiratory Respiratory exam: Present: respiratory distress, wheezes, rales, rhonchi, accessory muscle use, decreased breath sounds, prolonged expiratory. Absent: stridor, chest wall tenderness - Cardiovascular Cardiovascular Exam: Present: regular rate, normal rhythm, normal heart sounds - GI/Abdominal GI/Abdominal exam: Present: soft, normal bowel sounds. Absent: distended, tenderness, guarding, rebound, rigid, organomegaly, mass, bruit, pulsatile mass, hernia - Extremities Exam Extremities exam: Present: normal inspection, full ROM, normal capillary refill, pedal edema. Absent: calf tenderness - Back Exam Back exam: Present: normal inspection, full ROM. Absent: tenderness, CVA tenderness (R), CVA tenderness (L), muscle spasm, paraspinal tenderness, vertebral tenderness - Neurological Exam Neurological exam: Present: alert, oriented X3, CN II-XII intact, normal gait, reflexes normal - Psychiatric Psychiatric exam: Present: normal mood - Skin Skin exam: Present: warm, intact, normal color ED Course Vital Signs 03/16/19 03/16/19 03/16/19 16:05 16:17 16:24 Temperature 97.8 F Pulse Rate 97 H 87 Pulse Rate [ 88 Anterior Bilateral Throughout] Respiratory 22 18 Rate Respiratory 21 Rate [Anterior Bilateral Throughout] Blood Pressure 136/66 136/66 O2 Sat by Pulse 99 99 Oximetry ED Medical Decision Making - Lab Data Result diagrams: 03/16/19 16:14 03/16/19 16:14 - EKG Data -: EKG Interpreted by Me EKG shows normal: sinus rhythm Rate: normal - EKG Data Interpretation: no acute changes - Radiology Data Radiology results: report reviewed - Medical Decision Making Patient is 69 years old female with history of COPD and congestive heart failure. Patient presented to the ER via EMS complaining of shortness of breath and difficulty breathing. Patient stated the symptoms started last night and get worse this afternoon. Patient denied any chest pain, fever or chills. She received albuterol, Solu-Medrol and 2 g of magnesium sulfate by EMS. Patient initial oxygen saturation was 89% on room air improved to 96% with mask. Patient is started on BiPAP in the emergency room. She received a albuterol and Atrovent. Patient also sees Lasix 40 mg IV. Patient stated that symptoms improved. I discussed the patient with Dr. Bright, he agreed to admit the patient to medical service for further management. Critical Care Time: Yes Critical care time in (mins) excluding proc time.: 30 Critical care attestation.: If time is entered above; I have spent that time in minutes in the direct care of this critically ill patient, excluding procedure time. ED Disposition Clinical Impression: Acute and chronic respiratory failure with hypoxia, COPD exacerbation, Shortness of breath Disposition: OP ADMIT IP TO THIS HOSP Is pt being admited?: Yes Condition: Stable Instructions: Chronic Obstructive Pulmonary Disease (ED)
[2019-03-16] MEDS ORDERED: IPRATROPIUM 0.02% NEBU 2.5 ML IH ONE (16:20)
[2019-03-16] MEDS ORDERED: ALBUTEROL 2.5 MG/3 ML NEBU IH ONE ×3 (16:20→18:57)
[2019-03-16 16:42] LABS: Eosinophils # (Auto) 0.5 K/mm3 (0.0-0.4); Eosinophils % (Auto) 9.4 % (0.0-4.3); Hematocrit 37.4 % (30.3-42.9); Hemoglobin 11.8 gm/dl (10.1-14.3); Lymphocytes % (Auto) 18.8 % (13.4-35.0); Mean Corpuscular HGB Conc 32 % (30-34); Mean Corpuscular Volume 79 fl (79-97); Monocytes # (Auto) 0.6 K/mm3 (0.0-0.8); Monocytes % (Auto) 12.7 % (0.0-7.3); Platelet Count 248 K/mm3 (140-440); Red Blood Count 4.76 M/mm3 (3.65-5.03); Red Cell Distribution Width 18.6 % (13.2-15.2)
[2019-03-16 16:50] LABS: BUN/Creatinine Ratio 23; Blood Urea Nitrogen 14 mg/dL (7-17); Calcium 9.5 mg/dL (8.4-10.2); Hemolysis Index 8
[2019-03-16 17:00] LABS: Albumin 4.1 g/dL (3.9-5)
[2019-03-16 17:01] LABS: Alanine Aminotransferase < 5 units/L (7-56); Bilirubin,Direct < 0.2 mg/dL (0-0.2)
--- NOTE | 2019-03-16 17:49 | XRay Report ---
CHEST 1 VIEW INDICATION / CLINICAL INFORMATION: Dyspnea. COMPARISON: Chest radiograph 02/15/2019 FINDINGS: SUPPORT DEVICES: None. HEART / MEDIASTINUM: No significant abnormality. LUNGS / PLEURA: Minimal right basilar scarring is unchanged from prior examination. No focal pulmonar y consolidation. No pleural effusion. No pneumothorax. ADDITIONAL FINDINGS: No significant additional findings. IMPRESSION: 1. No acute findings and no significant change from prior examination. Signer Name: Myra Levine MD Signed: 03/16/2019 5:45 PM Workstation Name: [id number]
--- NOTE | 2019-03-16 18:27 | History and Physical Report ---
History of Present Illness Chief complaint: I cant breathe History of present illness: 69 YO Female with HTN, DM, COPD, Diastolic CHF, Chronic Respiratory Failure on 3L Home Oxygen via [place] presents to ED for evaluation. Pt states that she has experienced shortness of breath over the past 3 days with worsening symptoms o ruslan the same time frame. Pt acknowledges increased productive cough with increased production of clear sputum. Pt also acknowledges increased nebulizer use without relief as well as increased use of oxygen without relief of symptoms. Pt acknowledges dypsnea on exertion, dypsnea at rest, as well as d ecreased exercise tolerance, and prolonged feeding time due to dypsnea with meals. Pt is unable to speak in complete sentences due to shortness of breath. EMS notified, and upon arrival the patient was found to be in distress and transported to [facility]. Pt seen and evaluated in ED and found to have Acute on Chronic Respiratory Failure and placed on NRB mask without improvement in symptoms. Pt subsequently placed on NIPPV with mild improvement in symptoms. Pt also found to have Diastolic CHF, as well as COPD Exacerbation. Pt is unable to speak in complete sentences due to shortness of breath, and is sitting forward on her bed and using accessory muscles to breathe. Pt acknowledges absence of fever, chills, CP, Palpitations, NVD, Trauma, BRBPR, Skin Rash, or recent ill contacts. Prior admission on 02/16/19 reviewed. All listed medication reconciled at time of admission. Past History Past Medical History: other (see hpi) Past Surgical History: hysterectomy Social history: Family history: diabetes, hypertension Medications and Allergies Allergies Allergy/AdvReac Type Severity Reaction Status Date / Time No Known Allergies Allergy Unverified 10/29/14 10:06 Home Medications Medication Instructions Recorded Confirmed Last Taken Type Furosemide [Lasix TAB] 40 mg PO QDAY #30 tablet 11/29/17 03/16/19 03/15/19 Rx Potassium Chloride [Klor-Con M20] 20 meq PO 3XW 08/29/18 03/16/19 03/15/19 History metFORMIN [Glucophage] 2 tab PO BID 08/29/18 03/16/19 03/15/19 History NIFEdipine XL [Procardia Xl] 60 mg PO QDAY 09/30/18 03/16/19 03/15/19 History LORazepam [Ativan] 1 mg PO BID PRN #30 tablet 12/23/18 03/16/19 03/15/19 Rx predniSONE [Deltasone] 10 mg PO .TAPER #48 tab 02/17/19 03/16/19 03/15/19 Rx Irbesartan 150 mg PO QDAY 03/16/19 03/16/19 03/15/19 History Review of Systems Constitutional: no weight loss, no weight gain, no fever, no chills Ears, nose, mouth and throat: no ear pain, no ear discharge, no tinnitis, no decreased hearing Breasts: no change in shape, no swelling, no mass Cardiovascular: shortness of breath, no chest pain, no orthopnea Respiratory: cough, cough with sputum, excessive sputum, shortness of breath Gastrointestinal: no nausea, no vomiting, no diarrhea, no constipation, no change in bowel habits Genitourinary Female: no pelvic pain, no flank pain, no menorrhagia, no dysuria, no urinary frequency, no urgency Rectal: no pain, no incontinence, no bleeding Musculoskeletal: no neck stiffness, no neck pain, no shooting arm pain, no arm numbness/tingling, no redness of joints Integumentary: no rash, no pruritis, no sores, no wounds, no jaundice, no boils Neurological: no transient paralysis, no paralysis, no weakness, no parathesias, no numbness, no tingling, no seizures Psychiatric: no anxiety, no memory loss, no change in sleep habits, no sleep disturbances, no hypersomnia, no change in appetite Endocrine: no cold intolerance, no heat intolerance, no polyphagia, no excessive thirst, no polyuria, no nocturia, no proptosis, no thyroid mass, no high blood sugars Hematologic/Lymphatic: no easy bruising, no easy bleeding, no lymphedema Allergic/Immunologic: no urticaria, no allergic rhinitis, no persistent infections Exam - Constitutional Vitals: Temp Pulse Resp BP Pulse Ox 97.8 F 88 21 136/66 99 03/16/19 16:05 03/16/19 16:24 03/16/19 16:24 03/16/19 16:17 03/16/19 16:17 General appearance: Present: severe distress - EENT Eyes: Present: PERRL ENT: hearing intact, clear oral mucosa - Neck Neck: Present: supple, normal ROM - Respiratory Respiratory effort: labored, accessory muscle use, stridor Respiratory: bilateral: diminished, wheezing - Cardiovascular Heart Sounds: Present: S1 & S2. Absent: rub, click - Extremities Extremities: pulses symmetrical, No edema Peripheral Pulses: within normal limits - Abdominal General gastrointestinal: Present: soft, non-tender, non-distended, normal bowel sounds Female genitourinary: Present: normal - Integumentary Integumentary: Present: clear, warm, dry - Musculoskeletal Musculoskeletal: generalized weakness - Psychiatric Psychiatric: appropriate mood/affect, intact judgment & insight, agitated - Neurologic Neurologic: CNII-XII intact, moves all extremities Results - Labs CBC & Chem 7: 03/16/19 16:14 03/16/19 16:14 Labs: Abnormal lab results 03/16/19 03/16/19 03/16/19 Range/Units 10:42 16:14 16:14 MCH 25 L (28-32) pg RDW 18.6 H (13.2-15.2) % [place] % (Auto) 12.7 H (0.0-7.3) % Eos % (Auto) 9.4 H (0.0-4.3) % Lymph # 1.0 L (1.2-5.4) K/mm3 Eos # 0.5 H (0.0-0.4) K/mm3 Creatinine 0.6 L (0.7-1.2) mg/dL Glucose 164 H (65-100) mg/dL ALT < 5 L (7-56) units/L Assessment and Plan - Patient Problems (1) Acute and chronic respiratory failure with hypoxia Current Visit: Yes Status: Acute Plan to address problem: Admit to [facility]IRSTIE unit, ABG, supplemental oxygen via NRB mask, nebulizer therapy, pulse oximetry, NIPPV, chest x ray, supportive care, IV steroid therapy (2) Diastolic CHF Current Visit: Yes Status: Acute Qualifiers: Heart failure chronicity: acute on chronic Qualified Code(s): I50.33 - Acute on chronic diastolic (congestive) heart failure Plan to address problem: Strict I/O, daily weight, blood pressure control, pulse oximetry, bnp, d dimer, afterload reduction, monitor BP q shift, (3) COPD exacerbation Current Visit: Yes Status: Acute Plan to address problem: supplemental oxygen, nebulizer therapy, chest x ray, ABG, pulse oximetry, IV antibiotic therapy, IV steroid therapy (4) HTN (hypertension) Current Visit: Yes Status: Acute Qualifiers: Hypertension type: essential hypertension Qualified Code(s): I10 - Essential (primary) hypertension Plan to address problem: Monitor BP q shift, supportive care. (5) Diabetes Current Visit: Yes Status: Acute Plan to address problem: ADA diet, insulin, accu check, hypoglycemia protocol (6) DVT prophylaxis Current Visit: Yes Status: Acute Plan to address problem: SCD to BLE while in bed, prophylactic heparin
[2019-03-16] MEDS ORDERED: LORazepam 2 MG/ML VIAL IV ONE (19:12)
[2019-03-16] MEDS ORDERED: ALBUTEROL 2.5 MG/3 ML NEBU IH PRN (19:28)
[2019-03-16] MEDS ORDERED: ACETAMINOPHEN 325 MG TAB PO PRN (19:28)
[2019-03-16] MEDS ORDERED: ONDANSETRON 4 MG/2 ML INJ IV PRN (19:28)
[2019-03-16] MEDS ORDERED: methylPREDNISolone Sod Succinate 40 MG/1 ML INJ IV SCH (22:00)
[2019-03-16] MEDS: LORazepam 1 MG TAB PO PRN (23:00)
[2019-03-17] MEDS ORDERED: IPRATROPIUM/ALBUTEROL SULFATE 3 ML AMPUL.NEB IH PRN (00:14)
[2019-03-17] MEDS: methylPREDNISolone Sod Succinate 40 MG/1 ML INJ IV SCH ×2 (02:08→11:53)
[2019-03-17 04:37] LABS: Hematocrit 36.3 % (30.3-42.9); Hemoglobin 11.6 gm/dl (10.1-14.3); Mean Corpuscular HGB Conc 32 % (30-34); Mean Corpuscular Volume 78 fl (79-97); Platelet Count 246 K/mm3 (140-440); Red Blood Count 4.67 M/mm3 (3.65-5.03); Red Cell Distribution Width 18.4 % (13.2-15.2)
[2019-03-17 04:52] LABS: Alanine Aminotransferase 5 units/L (7-56); Albumin 4.1 g/dL (3.9-5); BUN/Creatinine Ratio 32; Blood Urea Nitrogen 19 mg/dL (7-17); Calcium 9.5 mg/dL (8.4-10.2); Hemolysis Index 1
[2019-03-17 05:43] LABS: Band Neutrophils # (Manual) 0.6 K/mm3; Basophils % (Manual) 0 % (0.0-1.8); Eosinophils % (Manual) 0 % (0.0-4.3); Hypochromasia 1+; Total Cells Counted 100
[2019-03-17 05:44] LABS: Burr Cells Rare; Helmet Cells Rare
[2019-03-17 05:45] LABS: Platelet Estimate Consistent w Auto
[2019-03-17] MEDS: IPRATROPIUM/ALBUTEROL SULFATE 3 ML AMPUL.NEB IH SCH ×4 (08:38→20:31)
[2019-03-17] MEDS: INSULIN LISPRO 100 UNIT/ML SUB-Q SCH ×4 (09:19→22:23)
[2019-03-17] MEDS ORDERED: IRBESARTAN 150 MG PO SCH (10:00)
[2019-03-17] MEDS ORDERED: POTASSIUM CHLORIDE ER 20 MEQ TAB PO SCH (10:00)
[2019-03-17] MEDS: FUROSEMIDE 40 MG TAB PO SCH (10:51)
[2019-03-17] MEDS: NIFEdipine XL 60 MG TAB PO SCH (10:51)
--- NOTE | 2019-03-17 11:57 | Consultation ---
History of Present Illness Consult date: 03/17/19 Requesting physician: ANIL DUTTON Reason for consult: COPD (Acute COPD exacerbation) History of present illness: PULMONARY/CCM CONSULT NOTE (full dictation # [id number]) Please see dictated notes for full details - cardiology evaluation for heart failure and to evaluate for pulmonary HTN - psychiatry evaluation for depression - add LABA & ICS - continue diuresis - GI prophylaxis Past History Past Medical History: other (see hpi) Past Surgical History: hysterectomy Social history: Family history: diabetes, hypertension Medications and Allergies Allergies Allergy/AdvReac Type Severity Reaction Status Date / Time No Known Allergies Allergy Unverified 10/29/14 10:06 Home Medications Medication Instructions Recorded Confirmed Last Taken Type Furosemide [Lasix TAB] 40 mg PO QDAY #30 tablet 11/29/17 03/16/19 03/15/19 Rx Potassium Chloride [Klor-Con M20] 20 meq PO 3XW 08/29/18 03/16/19 03/15/19 History metFORMIN [Glucophage] 2 tab PO BID 08/29/18 03/16/19 03/15/19 History NIFEdipine XL [Procardia Xl] 60 mg PO QDAY 09/30/18 03/16/19 03/15/19 History LORazepam [Ativan] 1 mg PO BID PRN #30 tablet 12/23/18 03/16/19 03/15/19 Rx predniSONE [Deltasone] 10 mg PO .TAPER #48 tab 02/17/19 03/16/19 03/15/19 Rx Irbesartan 150 mg PO QDAY 03/16/19 03/16/19 03/15/19 History Active Meds: Active Medications Acetaminophen (Tylenol) 650 mg PO Q4H PRN PRN Reason: Pain MILD(1-3)/Fever >100.5/SPANN Albuterol (Proventil) 2.5 mg IH Q4HRT PRN PRN Reason: Shortness Of Breath Last Admin: 03/17/19 02:22 Dose: 2.5 mg Documented by: Albuterol/Ipratropium (Duoneb *Not For Prn Use*) 1 ampul IH QIDRT [facility] Last Admin: 03/17/19 08:38 Dose: 1 ampul Documented by: Furosemide (Lasix) 40 mg PO QDAY [facility] Last Admin: 03/17/19 10:51 Dose: 40 mg Documented by: Levofloxacin/Dextrose (Levaquin 750mg/150ml) 750 mg in 150 mls @ 100 mls/hr IV Q24HR [facility]; Protocol Last Admin: 03/17/19 10:52 Dose: 100 mls/hr Documented by: Insulin Human Lispro (Humalog) 0 unit SUB-Q ACHS [facility]; Protocol Last Admin: 03/17/19 11:53 Dose: 2 unit Documented by: Lorazepam (Ativan) 1 mg PO BID PRN PRN Reason: anxiety Last Admin: 03/16/19 23:00 Dose: 1 mg Documented by: Losartan Potassium (Cozaar) 50 mg PO QDAY [facility] Methylprednisolone Sodium Succinate (Solu-Medrol) 80 mg IV Q8H [facility] Last Admin: 03/17/19 11:53 Dose: 80 mg Documented by: Nifedipine (Procardia Xl) 60 mg PO QDAY [facility] Last Admin: 03/17/19 10:51 Dose: 60 mg Documented by: Ondansetron HCl (Zofran) 4 mg IV Q8H PRN PRN Reason: Nausea And Vomiting Potassium Chloride (K-Dur) 20 meq [facility] Sodium Chloride (Sodium Chloride Flush Syringe 10 Ml) 10 ml IV BID [facility] Last Admin: 03/17/19 10:52 Dose: 10 ml Documented by: Sodium Chloride (Sodium Chloride Flush Syringe 10 Ml) 10 ml IV PRN PRN PRN Reason: LINE FLUSH Physical Examination Vital signs: Vital Signs Pulse Resp Pulse Ox 96 H 34 H 98 03/16/19 16:01 03/16/19 16:01 03/16/19 16:01 Results - Laboratory Findings CBC and BMP: 03/17/19 04:05 03/17/19 04:05 ABG POC ABG pH 7.373 (7.35-7.45) 03/16/19 20:16 POC ABG pCO2 53.3 (35-45) H 03/16/19 20:16 POC ABG pO2 58 (80-105) L 03/16/19 20:16 POC ABG HCO3 31.0 (22-26 mml/L) 03/16/19 20:16 POC ABG Total CO2 33 (23-27mmol/L) 03/16/19 20:16 POC ABG O2 Sat 88 11/28/19 20:16 Abnormal lab findings: Abnormal Labs 03/16/19 03/16/19 03/16/19 10:42 16:14 16:14 MCV MCH 25 L RDW 18.6 H [place] % (Auto) 12.7 H Eos % (Auto) 9.4 H Lymph # 1.0 L Eos # 0.5 H Seg Neuts % (Manual) Lymphocytes % (Manual) Lymphocytes # (Manual) POC ABG pCO2 POC ABG pO2 BUN Creatinine 0.6 L Glucose 164 H POC Glucose ALT < 5 L 03/16/19 03/17/19 03/17/19 20:16 04:05 04:05 MCV 78 L MCH 25 L RDW 18.4 H [place] % (Auto) Eos % (Auto) Lymph # Eos # Seg Neuts % (Manual) 79.0 H Lymphocytes % (Manual) 9.0 L Lymphocytes # (Manual) 0.5 L POC ABG pCO2 53.3 H POC ABG pO2 58 L BUN 19 H Creatinine 0.6 L Glucose 170 H POC Glucose ALT 5 L 03/17/19 03/17/19 07:20 11:34 MCV MCH RDW [place] % (Auto) Eos % (Auto) Lymph # Eos # Seg Neuts % (Manual) Lymphocytes % (Manual) Lymphocytes # (Manual) POC ABG pCO2 POC ABG pO2 BUN Creatinine Glucose POC Glucose 156 H 152 H ALT
[2019-03-17] MEDS: LOSARTAN 50 MG TAB PO SCH (12:01)
--- NOTE | 2019-03-17 13:05 | Progress Note ---
Assessment and Plan Assessment and plan: 69-year-old woman well-known to [facility] who presents to the hospital COPD exacerbation. Copd exacerbation; steroids, nebs, pulmonology consults, aggressive chest PT Hypertension, continue antihypertensives Diabetes Consistent carbohydrate diet, sliding scale insulin, check A1c DVT prophylaxis with Lovenox History Interval history: Review of systems Constitutional: No fevers, no malaise, no joint pains CVS: No chest pain, no orthopnea, no pedal edema GI: No abdominal pain, no diarrhea, no vomiting, no constipation Respiratory: , Continues to complain of shortness of breath coughing and wheezing Hospitalist Physical - Physical exam Narrative exam: General.: Mild distress HEENT: Moist mucous membranes, extraocular muscles intact, no lymphadenopathy Neck: supple Cardiac: S1-S2 heard Lungs: Decreased air entry, expiratory wheezing Abdomen: soft , nontender, nondistended, bowel sounds positive Extremities: no edema clubbing or cyanosis Skin: no rash or lesions Neurologic: no gross focal deficits Psych: calm, and cooperative - Constitutional Vitals: Temp Pulse Resp BP Pulse Ox 98.0 F 97 H 20 146/69 93 03/17/19 07:27 03/17/19 08:58 03/17/19 08:58 03/17/19 07:27 03/17/19 08:39 General appearance: Present: severe distress Results - Labs CBC & Chem 7: 03/17/19 04:05 03/17/19 04:05 Labs: Laboratory Last Values WBC 5.1 K/mm3 (4.5-11.0) 03/17/19 04:05 RBC 4.67 M/mm3 (3.65-5.03) 03/17/19 04:05 Hgb 11.6 gm/dl (10.1-14.3) 03/17/19 04:05 Hct 36.3 % (30.3-42.9) 03/17/19 04:05 MCV 78 fl (79-97) L 03/17/19 04:05 MCH 25 pg (28-32) L 03/17/19 04:05 MCHC 32 % (30-34) 03/17/19 04:05 RDW 18.4 % (13.2-15.2) H 03/17/19 04:05 Plt Count 246 K/mm3 (140-440) 03/17/19 04:05 Lymph % (Auto) 18.8 % (13.4-35.0) 03/16/19 16:14 [place] % (Auto) 12.7 % (0.0-7.3) H 03/16/19 16:14 Eos % (Auto) 9.4 % (0.0-4.3) H 03/16/19 16:14 Baso % (Auto) 1.0 % (0.0-1.8) 03/16/19 16:14 Lymph # 1.0 K/mm3 (1.2-5.4) L 03/16/19 16:14 [place] # 0.6 K/mm3 (0.0-0.8) 03/16/19 16:14 Eos # 0.5 K/mm3 (0.0-0.4) H 03/16/19 16:14 Baso # 0.0 K/mm3 (0.0-0.1) 03/16/19 16:14 Add Manual Diff Complete 03/17/19 04:05 Total Counted 100 03/17/19 04:05 Seg Neutrophils % City Administrator 03/17/19 04:05 Seg Neuts % (Manual) 79.0 % (40.0-70.0) H 03/17/19 04:05 Band Neutrophils % 11.0 % 03/17/19 04:05 Lymphocytes % (Manual) 9.0 % (13.4-35.0) L 03/17/19 04:05 Reactive Lymphs % (Man) 0 % 03/17/19 04:05 Monocytes % (Manual) 1.0 % (0.0-7.3) 03/17/19 04:05 Eosinophils % (Manual) 0 % (0.0-4.3) 03/17/19 04:05 Basophils % (Manual) 0 % (0.0-1.8) 03/17/19 04:05 Metamyelocytes % 0 % 03/17/19 04:05 Myelocytes % 0 % 03/17/19 04:05 Promyelocytes % 0 % 03/17/19 04:05 Blast Cells % 0 % 03/17/19 04:05 Nucleated RBC % Not Reportable 03/17/19 04:05 Seg Neutrophils # 3.0 K/mm3 (1.8-7.7) 03/16/19 16:14 Seg Neutrophils # Man 4.0 K/mm3 (1.8-7.7) 03/17/19 04:05 Band Neutrophils # 0.6 K/mm3 03/17/19 04:05 Lymphocytes # (Manual) 0.5 K/mm3 (1.2-5.4) L 03/17/19 04:05 Abs React Lymphs (Man) 0.0 K/mm3 03/17/19 04:05 Monocytes # (Manual) 0.1 K/mm3 (0.0-0.8) 03/17/19 04:05 Eosinophils # (Manual) 0.0 K/mm3 (0.0-0.4) 03/17/19 04:05 Basophils # (Manual) 0.0 K/mm3 (0.0-0.1) 03/17/19 04:05 Metamyelocytes # 0.0 K/mm3 03/17/19 04:05 Myelocytes # 0.0 K/mm3 03/17/19 04:05 Promyelocytes # 0.0 K/mm3 03/17/19 04:05 Blast Cells # 0.0 K/mm3 03/17/19 04:05 WBC Morphology Not Reportable 03/17/19 04:05 Hypersegmented Neuts Not Reportable 03/17/19 04:05 Hyposegmented Neuts Not Reportable 03/17/19 04:05 Hypogranular Neuts Not Reportable 03/17/19 04:05 Smudge Cells Not Reportable 03/17/19 04:05 Toxic Granulation Not Reportable 03/17/19 04:05 Toxic Vacuolation Not Reportable 03/17/19 04:05 Dohle Bodies Not Reportable 03/17/19 04:05 Pelger-Huet Anomaly Not Reportable 03/17/19 04:05 Becca Rods Not Reportable 03/17/19 04:05 Platelet Estimate Consistent w auto 03/17/19 04:05 Clumped Platelets Not Reportable 03/17/19 04:05 Plt Clumps, EDTA Not Reportable 03/17/19 04:05 Large Platelets Not Reportable 03/17/19 04:05 Giant Platelets Not Reportable 03/17/19 04:05 Platelet Satelliting Not Reportable 03/17/19 04:05 Plt Morphology Comment Not Reportable 03/17/19 04:05 RBC Morphology Not Reportable 03/17/19 04:05 Dimorphic RBCs Not Reportable 03/17/19 04:05 Polychromasia Not Reportable 03/17/19 04:05 Hypochromasia 1+ 03/17/19 04:05 Poikilocytosis Not Reportable 03/17/19 04:05 Anisocytosis Not Reportable 03/17/19 04:05 Microcytosis Not Reportable 03/17/19 04:05 Macrocytosis Not Reportable 03/17/19 04:05 Spherocytes Not Reportable 03/17/19 04:05 Pappenheimer Bodies Not Reportable 03/17/19 04:05 Sickle Cells Not Reportable 03/17/19 04:05 Target Cells Not Reportable 03/17/19 04:05 Tear Drop Cells Not Reportable 03/17/19 04:05 Ovalocytes Not Reportable 03/17/19 04:05 Helmet Cells Rare 03/17/19 04:05 [place] Bodies Not Reportable 03/17/19 04:05 [place] Rings Not Reportable 03/17/19 04:05 [place] Cells Rare 03/17/19 04:05 Bite Cells Not Reportable 03/17/19 04:05 Crenated Cell Not Reportable 03/17/19 04:05 Elliptocytes Few 03/17/19 04:05 Acanthocytes (Spur) Not Reportable 03/17/19 04:05 Rouleaux Not Reportable 03/17/19 04:05 Hemoglobin C Crystals Not Reportable 03/17/19 04:05 Schistocytes Not Reportable 03/17/19 04:05 Malaria parasites Not Reportable 03/17/19 04:05 Carlos Bodies Not Reportable 03/17/19 04:05 Hem Pathologist Commnt No 03/17/19 04:05 POC ABG pH 7.373 (7.35-7.45) 03/16/19 20:16 POC ABG pCO2 53.3 (35-45) H 03/16/19 20:16 POC ABG pO2 58 (80-105) L 03/16/19 20:16 POC ABG HCO3 31.0 (22-26 mml/L) 03/16/19 20:16 POC ABG Total CO2 33 (23-27mmol/L) 03/16/19 20:16 POC ABG O2 Sat 88 03/16/19 20:16 POC ABG Base Excess 6 ((-2) - (+3)mmol/L) 03/16/19 20:16 FiO2 32 % 03/16/19 20:16 Sodium 140 mmol/L (137-145) 03/17/19 04:05 Potassium 4.7 mmol/L (3.6-5.0) 03/17/19 04:05 Chloride 100.3 mmol/L (98-107) 03/17/19 04:05 Carbon Dioxide 29 mmol/L (22-30) 03/17/19 04:05 Anion Gap 15 mmol/L 03/17/19 04:05 BUN 19 mg/dL (7-17) H 03/17/19 04:05 Creatinine 0.6 mg/dL (0.7-1.2) L 03/17/19 04:05 Estimated GFR > 60 ml/min 03/17/19 04:05 BUN/Creatinine Ratio 32 % 03/17/19 04:05 Glucose 170 mg/dL (65-100) H 03/17/19 04:05 POC Glucose 152 (70-105) H 03/17/19 11:34 Calcium 9.5 mg/dL (8.4-10.2) 03/17/19 04:05 Total Bilirubin < 0.20 mg/dL (0.1-1.2) 03/17/19 04:05 Direct Bilirubin < 0.2 mg/dL (0-0.2) 03/16/19 10:42 Indirect Bilirubin 0.0 mg/dL 03/16/19 10:42 AST 23 units/L (5-40) 03/17/19 04:05 ALT 5 units/L (7-56) L 03/17/19 04:05 Alkaline Phosphatase 62 units/L (35-129) 03/17/19 04:05 Troponin T < 0.010 ng/mL (0.00-0.029) 03/16/19 18:16 NT-Pro-B Natriuret Pep 32.31 pg/mL (0-900) 03/16/19 10:42 Total Protein 6.4 g/dL (6.3-8.2) 03/17/19 04:05 Albumin 4.1 g/dL (3.9-5) 03/17/19 04:05 Albumin/Globulin Ratio 1.8 % 03/17/19 04:05 Active Medications - Current Medications Current Medications: Generic Name Dose Route Start Last Admin Trade Name Freq PRN Reason Stop Dose Admin Acetaminophen 650 mg 03/16/19 19:28 Tylenol PO Q4H PRN Pain MILD(1-3)/Fever >100.5/SPANN Albuterol 2.5 mg 03/16/19 19:28 03/17/19 02:22 Proventil IH 2.5 mg Q4HRT PRN Administration Shortness Of Breath Albuterol/Ipratropium 1 ampul 03/17/19 08:00 03/17/19 13:00 Duoneb *Not For Prn Use* IH 1 ampul QIDRT NANCY Administration Enoxaparin Sodium 40 mg 03/17/19 22:00 Enoxaparin SUB-Q QDAY@2200 NANCY Furosemide 40 mg 03/17/19 10:00 03/17/19 10:51 Lasix PO 40 mg QDAY NANCY Administration Levofloxacin/Dextrose 750 mg in 150 mls @ 100 mls/hr 03/17/19 10:00 03/17/19 10:52 Levaquin 750mg/150ml IV 100 mls/hr Q24HR NANCY Administration Protocol Insulin Human Lispro 0 unit 03/17/19 07:30 03/17/19 11:53 Humalog SUB-Q 2 unit ACHS NANCY Administration Protocol Lorazepam 1 mg 03/16/19 19:10 03/16/19 23:00 Ativan PO 1 mg BID PRN Administration anxiety Losartan Potassium 50 mg 03/17/19 10:00 03/17/19 12:01 Cozaar PO 50 mg QDAY NANCY Administration Methylprednisolone Sodium Succinate 80 mg 03/17/19 02:00 03/17/19 11:53 Solu-Medrol IV 80 mg Q8H NANCY Administration Nifedipine 60 mg 03/17/19 10:00 03/17/19 10:51 Procardia Xl PO 60 mg QDAY NANCY Administration Ondansetron HCl 4 mg 03/16/19 19:28 Zofran IV Q8H PRN Nausea And Vomiting Potassium Chloride 20 meq 03/18/19 10:37 K-Dur PO MoThSa NANCY Sodium Chloride 10 ml 03/16/19 22:00 03/17/19 10:52 Sodium Chloride Flush Syringe 10 Ml IV 10 ml BID NANCY Administration Sodium Chloride 10 ml 03/16/19 19:28 Sodium Chloride Flush Syringe 10 Ml IV PRN PRN LINE FLUSH Nutrition/Malnutrition Assess - Dietary Evaluation Nutrition/Malnutrition Findings: Nutrition Notes Start: 03/17/19 12:49 Freq: Status: Active Protocol: Document 03/17/19 12:49 LM (Rec: 03/17/19 12:57 LM [id number]) Nutrition Notes Need for Assessment generated from: signal repairer,MST Initial or Follow up Assessment Current Diagnosis COPD,Diabetes,Hypertension, Heart Failure,Respiratory Failure Current Diet Cardiac Labs/Tests POC glu 156 Pertinent Medications Solumedrol Height 5 ft 5 in Weight 77.111 kg Usual Body Weight 77.27 kg [place] Body Weight (kg) 56.81 BMI 28.3 Intake Prior to Admission Good Weight Status Appropriate Subjective/Other Information RN screen for skin risk. Jay score is 18. No skin breakdown documented in chart. Pt stated she ate well at home and had no wt changes. Pt reports UBW of 170 lb (77kg). Pt did not eat breakfast this AM due to not liking the food . Food preferences taken. Burn Absent Trauma Absent GI Symptoms None Minimum of two criteria No #1 Nutrition Diagnosis Inadequate oral intake Etiology decreased appetite due to disliking hospital food As Evidenced by Signs and Symptoms pt eating 0% of breakfast Is patient on ventilator? No Is Patient Ambulatory and/or Out of Bed Yes REE-([facility]-ambulatory/OOB) [ 1692.587 [id number]] Calculation Used for Recommendations [facility] Additional Notes Protein needs: 77-92g (1-1.2 g /kg) Fluid: 1 ml/kcal or per MD Nutrition Intervention Change Diet Order: Cardiac/consistent CHO Goal #1 Meet at least 75% of energy and protein needs Anticipated Discharge Needs: consistent CHO/cardiac Follow-Up By: 03/21/19 Additional Comments F/U for PO intakes
--- NOTE | 2019-03-17 13:53 | Consultation ---
PULMONARY CONSULT NOTE CONSULTING PHYSICIAN: Dr. Pollard. REASON FOR CONSULTATION: COPD. CHIEF COMPLAINT AND HISTORY OF PRESENT ILLNESS: The patient is a 69-year-old female who attends the outpatient pulmonary practice. PAST MEDICAL HISTORY: Significant for home oxygen dependent COPD, but also diastolic CHF, baseline oxygen levels of about 2-3 liters nasal cannula, came into the Emergency Room. She complained of 2-3 days of increasing shortness of breath. In particular, complained to me of orthopnea, needing to sleep sitting up in a chair, and unable to sustain long episodes of sleep. She stated that she had turned up per home oxygen to about 3-4 liters without improvement in her symptoms. A day before presentation, she complained of bilateral lower extremity swelling that was of relatively sudden onset. She complained of increasing dyspnea on exertion to the point that she almost needs a bedside commode and is unable to make it to the restroom. In the Emergency Room, she was brought in by EMS who had found her at home in respiratory distress. She was initially on a nonrebreather mask. She was put on noninvasive positive pressure ventilation with mild improvement in her symptoms. She was tripoding using accessory muscles to breathe. She denied fevers or chills. She denied sick contacts. She denied medication noncompliance. She denied gross or streaky hemoptysis. She was coughing up clear phlegm a little more than usual. After stabilization, we were asked to assist with management. When I stopped by to see her, she was sitting on the side of bed, looking a little bit miserable, but eating her breakfast, more so she is emotionally distraught about the worsening of her chronic symptoms. The patient does have a tobacco smoking history, but does not smoke anymore. This really is as much of the history of presentation as I have. PAST MEDICAL HISTORY: History of COPD, hypertension, heart failure with preserved ejection fraction, and diabetes type 2. She is obese. PAST SURGICAL HISTORY: She has had a hysterectomy. MEDICATIONS: She was on at the time I stopped by to see were reviewed. Pertinent medications included the following: Tylenol 650 mg p.o. q. 4 hours p.r.n. mild pain or fevers, albuterol 2.5 mg nebulized q. 4 hours p.r.n. shortness of breath, DuoNeb nebulizer treatments, inhaled q.i.d., Lovenox 40 mg subcutaneous daily, Lasix 40 mg p.o. daily, insulin via sliding scale, Levaquin 750 mg IV daily, Ativan 1 mg p.o. b.i.d. p.r.n. anxiety, Cozaar 50 mg p.o. daily, Solu-Medrol 80 mg IV q. 8 hours, nifedipine 60 mg XL tablet p.o. daily, Zofran 4 mg IV q. 8 hours p.r.n. nausea and vomiting, potassium chloride 20 mEq p.o. Wednesday, and Wednesday scheduled. ALLERGIES: No known drug allergies. DIET: Obese. Denies acute weight loss or gain in the preceding few weeks to months. FAMILY AND SOCIAL HISTORY: Lives in the community. I believe she lives alone. She has a remote 10+ pack year tobacco smoking history. No current alcohol, tobacco, or illicit drug use or abuse. Family history of diabetes and hypertension. REVIEW OF SYSTEMS: No loss of consciousness. No new onset seizures. No new onset focal weakness. No gross hematochezia or melena. No gross hematuria. Again, she has the dyspnea on exertion. She denies polydipsia or polyuria. Denied heat or cold intolerance. She admits to periods of significant sadness that may be consistent with depression. A complete 13-system review of system was obtained. Pertinent positives and/or negatives as in body of history above, otherwise noncontributory. PHYSICAL EXAMINATION: VITAL SIGNS: At presentation in the Emergency Room, review of the vital signs shows that she was afebrile, temperature 97.8 degrees Fahrenheit, pulse of 96, respiratory rate of 34, blood pressure 136/66, O2 sats were 98%. I believe 100% on a nonrebreather. When I stopped by to see her, O2 sats were 98% that was on 3.5 liters nasal cannula. GENERAL: She is an elderly looking -[place] female, obese, normocephalic, atraumatic with mildly increased respiratory effort at rest. HEAD, EYES, EARS, NOSE AND THROAT: She was anicteric, no conjunctival erythema. Oropharynx was moist. Mallampati #3 oropharynx. She does have a large neck circumference. No gross jugular venous distention, no thyromegaly. NECK: Grossly, there were no palpable lymph nodes in the supraclavicular or submandibular lymph node chains. LUNGS: Auscultation of both lung macdonald revealed diminished bilateral breath sounds, prolonged expiratory phase with faint expiratory wheezing. No rales. HEART: Heart sounds 1 and 2 are heard. They were regular in rate and rhythm at the time of my evaluation without overt rubs or murmurs. ABDOMEN: Soft, full, protuberant, but not distended. Bowel sounds are positive, nontender, no palpable hepatosplenomegaly. EXTREMITIES: Without overt digital clubbing or cyanosis. She has trace to 1+ bipedal pitting edema to the shins. Pedal pulses were palpable, 2+ bilaterally. NEUROLOGIC: Pupils were equal, round, about 4 mm, reactive to light. Extraocular muscle movements were intact. She moved all 4 extremities spontaneously. Her mood was depressed and affect also. SKIN: Normal turgor without overt cellulitis or rash in the areas examined. LABORATORY DATA: From my review are as follows: Admission white cell count 5100, hemoglobin 11.8, hematocrit 37.4, platelet count 248 and 11% band forms on the manual differential. ABG showed a pH of 7.37, pCO2 of 53, and pO2 of 58 that was on 3 liters nasal cannula. Serum sodium was 141, potassium 4.1, chloride 101, bicarbonate 23, BUN 14, creatinine 0.6, glucose 164. Liver function tests essentially within normal limits. Troponin within normal limits. BNP within normal limits. Two sets of blood cultures, no growth to date. A chest x-ray was done. I have reviewed the chest x-ray. I have also reviewed the radiologist's interpretation and compared with an x-ray from 02/15/2019. I do agree no acute infiltrates. There is evidence of hyperinflation consistent with COPD. Some areas of plate-like atelectasis, perhaps increased in the right lower lobe. No gross pneumothorax, no gross bony fractures that I can see. ASSESSMENT: 1. Acute on chronic hypoxemic and hypercapnic respiratory failure. 2. Acute chronic obstructive pulmonary disease exacerbation. 3. Acute diastolic heart failure exacerbation. 4. Obesity. 5. Possible sleep apnea. 6. Diabetes type 2. 7. History of hypertension. 8. Possible depression. PLAN: I do agree with current treatment modalities. I will go ahead and taper her systemic steroids. I do feel like diuresis should be the main therapeutic category over here. We will continue the current Lasix dose 40 mg p.o. daily. Consideration will be given for Cardiology evaluation. I am concerned about her right heart pressures, especially with her now developing bipedal edema without evidence of overt pulmonary edema. I do see on echocardiogram from 12/22 of this year that does not reveal any pulmonary hypertension. I will, however, have them take a look at her and see if there is any benefit to right heart catheterization and evaluation. I will also place a psychiatric consult and defer to them for depression. Otherwise, she is appropriately on DVT prophylaxis. I will put her on GI prophylaxis. I will add long-acting bronchodilator, Brovana as well as inhaled corticosteroids as I tapered off the systemic steroids. Flu and pneumonia vaccination have been addressed per protocol. Thank you very much for the consult, Dr. Pollard. We will follow along and make further recommendations as picture progresses/becomes clearer. JOB# [id number] LATHA/NICK CRAWFORD
[2019-03-17] MEDS ORDERED: methylPREDNISolone Sod Succinate 125 MG/2 ML INJ IV SCH (14:00)
[2019-03-17] MEDS: ARFORMOTEROL 15 MCG/2 ML NEBU IH SCH ×2 (16:37→20:32)
[2019-03-17] MEDS: methylPREDNISolone Sod Succinate 125 MG/2 ML INJ IV SCH (20:02)
[2019-03-17] MEDS: BUDESONIDE 0.5 MG/2 ML NEBU IH SCH (20:31)
[2019-03-17] MEDS: ENOXAPARIN 40 MG/0.4 ML INJ SUB-Q SCH (22:16)
[2019-03-17] MEDS: LORazepam 1 MG TAB PO PRN (22:16)
[2019-03-18] MEDS: methylPREDNISolone Sod Succinate 125 MG/2 ML INJ IV SCH ×3 (07:04→21:27)
[2019-03-18] MEDS: IPRATROPIUM/ALBUTEROL SULFATE 3 ML AMPUL.NEB IH SCH ×4 (08:24→23:41)
[2019-03-18] MEDS: ARFORMOTEROL 15 MCG/2 ML NEBU IH SCH ×2 (08:24→23:41)
[2019-03-18] MEDS: BUDESONIDE 0.5 MG/2 ML NEBU IH SCH ×2 (08:24→23:41)
[2019-03-18] MEDS: INSULIN LISPRO 100 UNIT/ML SUB-Q SCH ×4 (08:31→22:32)
[2019-03-18] MEDS: NIFEdipine XL 60 MG TAB PO SCH (09:41)
[2019-03-18] MEDS: FUROSEMIDE 40 MG TAB PO SCH (09:42)
[2019-03-18] MEDS: FAMOTIDINE 20 MG TAB PO SCH (09:42)
[2019-03-18] MEDS: LOSARTAN 50 MG TAB PO SCH (09:44)
--- NOTE | 2019-03-18 10:15 | Consultation ---
History of Present Illness Consult date: 03/18/19 Consult reason: shortness of breath History of present illness: Impression Acute COPD exac No acute cardiac process at this time Echo 12/2018, normal EF 55-60% Nuclear stress 09/30/2018 no ischemia, EF 72% Plan No need at this time for further inpt cardiac eval watchful waiting for now, see PRN. Past History Past Medical History: diabetes, hypertension, other (see hpi) Past Surgical History: hysterectomy Social history: Family history: diabetes, hypertension Medications and Allergies Allergies Allergy/AdvReac Type Severity Reaction Status Date / Time No Known Allergies Allergy Unverified 10/29/14 10:06 Home Medications Medication Instructions Recorded Confirmed Last Taken Type Furosemide [Lasix TAB] 40 mg PO QDAY #30 tablet 11/29/17 03/16/19 03/15/19 Rx Potassium Chloride [Klor-Con M20] 20 meq PO 3XW 08/29/18 03/16/19 03/15/19 History metFORMIN [Glucophage] 2 tab PO BID 08/29/18 03/16/19 03/15/19 History NIFEdipine XL [Procardia Xl] 60 mg PO QDAY 09/30/18 03/16/19 03/15/19 History LORazepam [Ativan] 1 mg PO BID PRN #30 tablet 12/23/18 03/16/19 03/15/19 Rx predniSONE [Deltasone] 10 mg PO .TAPER #48 tab 02/17/19 03/16/19 03/15/19 Rx Irbesartan 150 mg PO QDAY 03/16/19 03/16/19 03/15/19 History Active Meds: Active Medications Acetaminophen (Tylenol) 650 mg PO Q4H PRN PRN Reason: Pain MILD(1-3)/Fever >100.5/SPANN Albuterol (Proventil) 2.5 mg IH Q4HRT PRN PRN Reason: Shortness Of Breath Last Admin: 03/17/19 02:22 Dose: 2.5 mg Documented by: Albuterol/Ipratropium (Duoneb *Not For Prn Use*) 1 ampul IH QIDRT [facility] TO [facility] Last Admin: 03/18/19 08:24 Dose: 1 ampul Documented by: Arformoterol Tartrate (Brovana Nebu) 15 mcg IH Q12HRT [facility] Last Admin: 03/18/19 08:24 Dose: 15 mcg Documented by: Budesonide (Pulmicort) 0.5 mg IH Q12HRT [facility] Last Admin: 03/18/19 08:24 Dose: 0.5 mg Documented by: Enoxaparin Sodium (Enoxaparin) 40 mg SUB-Q QDAY@2200 [facility] Last Admin: 03/17/19 22:16 Dose: 40 mg Documented by: Famotidine (Pepcid) 20 mg PO QDAY [facility] Last Admin: 03/18/19 09:42 Dose: 20 mg Documented by: Furosemide (Lasix) 40 mg PO QDAY [facility] Last Admin: 03/18/19 09:42 Dose: 40 mg Documented by: Levofloxacin/Dextrose (Levaquin 750mg/150ml) 750 mg in 150 mls @ 100 mls/hr IV Q24HR [facility]; Protocol Last Admin: 03/18/19 09:41 Dose: 100 mls/hr Documented by: Insulin Human Lispro (Humalog) 0 unit SUB-Q ACHS [facility]; Protocol Last Admin: 03/18/19 08:31 Dose: Not Given Documented by: Lorazepam (Ativan) 1 mg PO BID PRN PRN Reason: anxiety Last Admin: 03/17/19 22:16 Dose: 1 mg Documented by: Losartan Potassium (Cozaar) 50 mg PO QDAY [facility] Last Admin: 03/18/19 09:44 Dose: 50 mg Documented by: Methylprednisolone Sodium Succinate (Solu-Medrol) 60 mg IV Q8H [facility] Last Admin: 03/18/19 07:04 Dose: 60 mg Documented by: Nifedipine (Procardia Xl) 60 mg PO QDAY [facility] Last Admin: 03/18/19 09:41 Dose: 60 mg Documented by: Ondansetron HCl (Zofran) 4 mg IV Q8H PRN PRN Reason: Nausea And Vomiting Potassium Chloride (K-Dur) 20 meq PO MoThSa [facility] Last Admin: 03/18/19 09:42 Dose: 20 meq Documented by: Sodium Chloride (Sodium Chloride Flush Syringe 10 Ml) 10 ml IV BID [facility] Last Admin: 03/18/19 09:48 Dose: 10 ml Documented by: Sodium Chloride (Sodium Chloride Flush Syringe 10 Ml) 10 ml IV PRN PRN PRN Reason: LINE FLUSH Review of Systems All systems: negative (COPD exac , SOB, wheezing) Physical Examination Vital Signs Pulse Resp Pulse Ox 96 H 34 H 98 03/16/19 16:01 03/16/19 16:01 03/16/19 16:01 General appearance: mild distress HEENT: Positive: PERRL, EOMI Neck: Positive: neck supple Cardiac: Positive: Reg Rate and Rhythm, S1/S2 Lungs: Positive: Decreased Breath Sounds, Wheezes Neuro: Positive: Grossly Intact Abdomen: Positive: Unremarkable Extremities: Present: +1 Edema Results 03/17/19 04:05 03/17/19 04:05
[2019-03-18] MEDS ORDERED: POTASSIUM CHLORIDE ER 20 MEQ TAB PO SCH (10:37)
--- NOTE | 2019-03-18 12:07 | Consultation ---
History of Present Illness - Reason for Consult Consult date: 03/18/19 Reason for consult: Mental Health Evaluation Requesting physician: DEVANTE WEBER - Chief Complaint Chief complaint: "I want to sleep" - History of Present Psychiatric Illness 69 y.o. AA female who presented to the ER for COPD exacerbation. Today the patient was calm and cooperative during the assessment. She stated that hse is having "major issues" sleeping because of her COPD. She denies a mental health dx when asked. She stated being "a little sad" about her health issues, but would feel better if she could sleep at night. She stated that she will be using the Bipap at night. She stated that she is willing to try medication to help her sleep. She denies SI/HI's and AVH's. She denies recreational drug use and alcoho l consumption (etoh). Medications and Allergies Allergies Allergy/AdvReac Type Severity Reaction Status Date / Time No Known Allergies Allergy Unverified 10/29/14 10:06 Home Medications Medication Instructions Recorded Confirmed Last Taken Type Furosemide [Lasix TAB] 40 mg PO QDAY #30 tablet 11/29/17 03/16/19 03/15/19 Rx Potassium Chloride [Klor-Con M20] 20 meq PO 3XW 08/29/18 03/16/19 03/15/19 History metFORMIN [Glucophage] 2 tab PO BID 08/29/18 03/16/19 03/15/19 History NIFEdipine XL [Procardia Xl] 60 mg PO QDAY 09/30/18 03/16/19 03/15/19 History LORazepam [Ativan] 1 mg PO BID PRN #30 tablet 12/23/18 03/16/19 03/15/19 Rx predniSONE [Deltasone] 10 mg PO .TAPER #48 tab 02/17/19 03/16/19 03/15/19 Rx Irbesartan 150 mg PO QDAY 03/16/19 03/16/19 03/15/19 History Budesonide/Formoterol Fumarate 1 puff IH BID 03/18/19 03/18/19 Unknown History [Symbicort 160-4.5 Mcg Inhaler] Ipratropium [Atrovent] 0.5 mg IH Q4HR 03/18/19 03/18/19 Unknown History Tiotropium [place] [Spiriva 1 puff IH DAILY 03/18/19 03/18/19 Unknown History Respimat] predniSONE [Deltasone] 10 mg PO .TAPER #48 tab 03/18/19 Unknown Rx Active Meds: Active Medications Acetaminophen (Tylenol) 650 mg PO Q4H PRN PRN Reason: Pain MILD(1-3)/Fever >100.5/SPANN Albuterol (Proventil) 2.5 mg IH Q4HRT PRN PRN Reason: Shortness Of Breath Last Admin: 03/17/19 02:22 Dose: 2.5 mg Documented by: Albuterol/Ipratropium (Duoneb *Not For Prn Use*) 1 ampul IH QIDRT [facility] Last Admin: 03/18/19 08:24 Dose: 1 ampul Documented by: Arformoterol Tartrate (Brovana Nebu) 15 mcg IH Q12HRT [facility] Last Admin: 03/18/19 08:24 Dose: 15 mcg Documented by: Budesonide (Pulmicort) 0.5 mg IH Q12HRT [facility] Last Admin: 03/18/19 08:24 Dose: 0.5 mg Documented by: Enoxaparin Sodium (Enoxaparin) 40 mg SUB-Q QDAY@2200 [facility] Last Admin: 03/17/19 22:16 Dose: 40 mg Documented by: Famotidine (Pepcid) 20 mg PO QDAY [facility] Last Admin: 03/18/19 09:42 Dose: 20 mg Documented by: Furosemide (Lasix) 40 mg PO QDAY [facility] Last Admin: 03/18/19 09:42 Dose: 40 mg Documented by: Levofloxacin/Dextrose (Levaquin 750mg/150ml) 750 mg in 150 mls @ 100 mls/hr IV Q24HR [facility]; Protocol Last Admin: 03/18/19 09:41 Dose: 100 mls/hr Documented by: Insulin Human Lispro (Humalog) 0 unit SUB-Q ACHS [facility]; Protocol Last Admin: 03/18/19 08:31 Dose: Not Given Documented by: Lorazepam (Ativan) 1 mg PO BID PRN PRN Reason: anxiety Last Admin: 03/17/19 22:16 Dose: 1 mg Documented by: Losartan Potassium (Cozaar) 50 mg PO QDAY [facility] Last Admin: 03/18/19 09:44 Dose: 50 mg Documented by: Methylprednisolone Sodium Succinate (Solu-Medrol) 60 mg IV Q8H [facility] Last Admin: 03/18/19 07:04 Dose: 60 mg Documented by: Nifedipine (Procardia Xl) 60 mg PO QDAY [facility] Last Admin: 03/18/19 09:41 Dose: 60 mg Documented by: Ondansetron HCl (Zofran) 4 mg IV Q8H PRN PRN Reason: Nausea And Vomiting Potassium Chloride (K-Dur) 20 meq PO MoThSa [facility] Last Admin: 03/18/19 09:42 Dose: 20 meq Documented by: Sodium Chloride (Sodium Chloride Flush Syringe 10 Ml) 10 ml IV BID [facility] Last Admin: 03/18/19 09:48 Dose: 10 ml Documented by: Sodium Chloride (Sodium Chloride Flush Syringe 10 Ml) 10 ml IV PRN PRN PRN Reason: LINE FLUSH Past psychiatric history - Past Medical History Past Medical History: COPD, diabetes Past Surgical History: No surgical history - past Psychiatric treatment and history psychiatric treatment history: Denies a psy hx and a fam psy hx. - Social History Social history: Lives alone Mental Status Exam - Vital signs Last Vital Signs Temp 98.6 F 03/18/19 08:38 Pulse 98 H 03/18/19 08:25 Resp 24 03/18/19 08:25 BP 132/54 03/18/19 07:32 Pulse Ox 92 03/18/19 08:25 - Exam Narrative exam: MSE: Appearance: in hospital attire Behavior: regular eye contact Speech: regular rate and tone Mood: "tired" Affect: congruent to mood Thought Process: linear Thought Content: denies SI/HI's and AVH's Motor Activity: sitting up in bed Cognition: A/O x3 Insight: fair Judgment: fair Results Result Diagrams: 03/17/19 04:05 03/17/19 04:05 Abnormal lab results 03/17/19 03/17/19 03/18/19 Range/Units 16:42 21:01 07:18 POC Glucose 121 H 119 H 128 H (70-105) 03/18/19 Range/Units 11:48 POC Glucose 108 H (70-105) All other labs normal. Assessment and Plan Assessment and plan: Impression: Insomnia. Today the patient was calm during the assessment. Recommendation/Plan: Start Melatonin 10 mg PO HS for sleep. Will follow up with the patient in [address] Bishop Rousseau.
--- NOTE | 2019-03-18 12:20 | Progress Note ---
Hospitalist Physical - Constitutional Vitals: Temp Pulse Resp BP Pulse Ox 98.6 F 98 H 20 132/54 98 03/18/19 08:38 03/18/19 08:25 03/18/19 10:00 03/18/19 07:32 03/18/19 10:00 General appearance: Present: mild distress Results - Labs CBC & Chem 7: 03/17/19 04:05 03/17/19 04:05 Labs: Laboratory Last Values WBC 5.1 K/mm3 (4.5-11.0) 03/17/19 04:05 RBC 4.67 M/mm3 (3.65-5.03) 03/17/19 04:05 Hgb 11.6 gm/dl (10.1-14.3) 03/17/19 04:05 Hct 36.3 % (30.3-42.9) 03/17/19 04:05 MCV 78 fl (79-97) L 03/17/19 04:05 MCH 25 pg (28-32) L 03/17/19 04:05 MCHC 32 % (30-34) 03/17/19 04:05 RDW 18.4 % (13.2-15.2) H 03/17/19 04:05 Plt Count 246 K/mm3 (140-440) 03/17/19 04:05 Lymph % (Auto) 18.8 % (13.4-35.0) 03/16/19 16:14 [place] % (Auto) 12.7 % (0.0-7.3) H 03/16/19 16:14 Eos % (Auto) 9.4 % (0.0-4.3) H 03/16/19 16:14 Baso % (Auto) 1.0 % (0.0-1.8) 03/16/19 16:14 Lymph # 1.0 K/mm3 (1.2-5.4) L 03/16/19 16:14 [place] # 0.6 K/mm3 (0.0-0.8) 03/16/19 16:14 Eos # 0.5 K/mm3 (0.0-0.4) H 03/16/19 16:14 Baso # 0.0 K/mm3 (0.0-0.1) 03/16/19 16:14 Add Manual Diff Complete 03/17/19 04:05 Total Counted 100 03/17/19 04:05 Seg Neutrophils % Weatherization Field Technician 03/17/19 04:05 Seg Neuts % (Manual) 79.0 % (40.0-70.0) H 03/17/19 04:05 Band Neutrophils % 11.0 % 03/17/19 04:05 Lymphocytes % (Manual) 9.0 % (13.4-35.0) L 03/17/19 04:05 Reactive Lymphs % (Man) 0 % 03/17/19 04:05 Monocytes % (Manual) 1.0 % (0.0-7.3) 03/17/19 04:05 Eosinophils % (Manual) 0 % (0.0-4.3) 03/17/19 04:05 Basophils % (Manual) 0 % (0.0-1.8) 03/17/19 04:05 Metamyelocytes % 0 % 03/17/19 04:05 Myelocytes % 0 % 03/17/19 04:05 Promyelocytes % 0 % 03/17/19 04:05 Blast Cells % 0 % 03/17/19 04:05 Nucleated RBC % Not Reportable 03/17/19 04:05 Seg Neutrophils # 3.0 K/mm3 (1.8-7.7) 03/16/19 16:14 Seg Neutrophils # Man 4.0 K/mm3 (1.8-7.7) 03/17/19 04:05 Band Neutrophils # 0.6 K/mm3 03/17/19 04:05 Lymphocytes # (Manual) 0.5 K/mm3 (1.2-5.4) L 03/17/19 04:05 Abs React Lymphs (Man) 0.0 K/mm3 03/17/19 04:05 Monocytes # (Manual) 0.1 K/mm3 (0.0-0.8) 03/17/19 04:05 Eosinophils # (Manual) 0.0 K/mm3 (0.0-0.4) 03/17/19 04:05 Basophils # (Manual) 0.0 K/mm3 (0.0-0.1) 03/17/19 04:05 Metamyelocytes # 0.0 K/mm3 03/17/19 04:05 Myelocytes # 0.0 K/mm3 03/17/19 04:05 Promyelocytes # 0.0 K/mm3 03/17/19 04:05 Blast Cells # 0.0 K/mm3 03/17/19 04:05 WBC Morphology Not Reportable 03/17/19 04:05 Hypersegmented Neuts Not Reportable 03/17/19 04:05 Hyposegmented Neuts Not Reportable 03/17/19 04:05 Hypogranular Neuts Not Reportable 03/17/19 04:05 Smudge Cells Not Reportable 03/17/19 04:05 Toxic Granulation Not Reportable 03/17/19 04:05 Toxic Vacuolation Not Reportable 03/17/19 04:05 Dohle Bodies Not Reportable 03/17/19 04:05 Pelger-Huet Anomaly Not Reportable 03/17/19 04:05 Becca Rods Not Reportable 03/17/19 04:05 Platelet Estimate Consistent w auto 03/17/19 04:05 Clumped Platelets Not Reportable 03/17/19 04:05 Plt Clumps, EDTA Not Reportable 03/17/19 04:05 Large Platelets Not Reportable 03/17/19 04:05 Giant Platelets Not Reportable 03/17/19 04:05 Platelet Satelliting Not Reportable 03/17/19 04:05 Plt Morphology Comment Not Reportable 03/17/19 04:05 RBC Morphology Not Reportable 03/17/19 04:05 Dimorphic RBCs Not Reportable 03/17/19 04:05 Polychromasia Not Reportable 03/17/19 04:05 Hypochromasia 1+ 03/17/19 04:05 Poikilocytosis Not Reportable 03/17/19 04:05 Anisocytosis Not Reportable 03/17/19 04:05 Microcytosis Not Reportable 03/17/19 04:05 Macrocytosis Not Reportable 03/17/19 04:05 Spherocytes Not Reportable 03/17/19 04:05 Pappenheimer Bodies Not Reportable 03/17/19 04:05 Sickle Cells Not Reportable 03/17/19 04:05 Target Cells Not Reportable 03/17/19 04:05 Tear Drop Cells Not Reportable 03/17/19 04:05 Ovalocytes Not Reportable 03/17/19 04:05 Helmet Cells Rare 03/17/19 04:05 [place] Bodies Not Reportable 03/17/19 04:05 Vaughn Rings Not Reportable 03/17/19 04:05 Sasha Cells Rare 03/17/19 04:05 Bite Cells Not Reportable 03/17/19 04:05 Crenated Cell Not Reportable 03/17/19 04:05 Elliptocytes Few 03/17/19 04:05 Acanthocytes (Spur) Not Reportable 03/17/19 04:05 Rouleaux Not Reportable 03/17/19 04:05 Hemoglobin C Crystals Not Reportable 03/17/19 04:05 Schistocytes Not Reportable 03/17/19 04:05 Malaria parasites Not Reportable 03/17/19 04:05 Carlos Bodies Not Reportable 03/17/19 04:05 Hem Pathologist Commnt No 03/17/19 04:05 POC ABG pH 7.373 (7.35-7.45) 03/16/19 20:16 POC ABG pCO2 53.3 (35-45) H 03/16/19 20:16 POC ABG pO2 58 (80-105) L 03/16/19 20:16 POC ABG HCO3 31.0 (22-26 mml/L) 03/16/19 20:16 POC ABG Total CO2 33 (23-27mmol/L) 03/16/19 20:16 POC ABG O2 Sat 88 03/16/19 20:16 POC ABG Base Excess 6 ((-2) - (+3)mmol/L) 03/16/19 20:16 FiO2 32 % 03/16/19 20:16 Sodium 140 mmol/L (137-145) 03/17/19 04:05 Potassium 4.7 mmol/L (3.6-5.0) 03/17/19 04:05 Chloride 100.3 mmol/L (98-107) 03/17/19 04:05 Carbon Dioxide 29 mmol/L (22-30) 03/17/19 04:05 Anion Gap 15 mmol/L 03/17/19 04:05 BUN 19 mg/dL (7-17) H 03/17/19 04:05 Creatinine 0.6 mg/dL (0.7-1.2) L 03/17/19 04:05 Estimated GFR > 60 ml/min 03/17/19 04:05 BUN/Creatinine Ratio 32 % 03/17/19 04:05 Glucose 170 mg/dL (65-100) H 03/17/19 04:05 POC Glucose 108 (70-105) H 03/18/19 11:48 Calcium 9.5 mg/dL (8.4-10.2) 03/17/19 04:05 Total Bilirubin < 0.20 mg/dL (0.1-1.2) 03/17/19 04:05 Direct Bilirubin < 0.2 mg/dL (0-0.2) 03/16/19 10:42 Indirect Bilirubin 0.0 mg/dL 03/16/19 10:42 AST 23 units/L (5-40) 03/17/19 04:05 ALT 5 units/L (7-56) L 03/17/19 04:05 Alkaline Phosphatase 62 units/L (35-129) 03/17/19 04:05 Troponin T < 0.010 ng/mL (0.00-0.029) 03/16/19 18:16 NT-Pro-B Natriuret Pep 32.31 pg/mL (0-900) 03/16/19 10:42 Total Protein 6.4 g/dL (6.3-8.2) 03/17/19 04:05 Albumin 4.1 g/dL (3.9-5) 03/17/19 04:05 Albumin/Globulin Ratio 1.8 % 03/17/19 04:05 Active Medications - Current Medications Current Medications: Generic Name Dose Route Start Last Admin Trade Name Freq PRN Reason Stop Dose Admin Acetaminophen 650 mg 03/16/19 19:28 Tylenol PO Q4H PRN Pain MILD(1-3)/Fever >100.5/SPANN Albuterol 2.5 mg 03/16/19 19:28 03/17/19 02:22 Proventil IH 2.5 mg Q4HRT PRN Administration Shortness Of Breath Albuterol/Ipratropium 1 ampul 03/17/19 08:00 03/18/19 08:24 Duoneb *Not For Prn Use* IH 1 ampul QIDRT NANCY Administration Arformoterol Tartrate 15 mcg 03/17/19 13:30 03/18/19 08:24 Brovana Nebu IH 15 mcg Q12HRT NANCY Administration Budesonide 0.5 mg 03/17/19 20:00 03/18/19 08:24 Pulmicort IH 0.5 mg Q12HRT NANCY Administration Enoxaparin Sodium 40 mg 03/17/19 22:00 03/17/19 22:16 Enoxaparin SUB-Q 40 mg QDAY@2200 NANCY Administration Famotidine 20 mg 03/18/19 10:00 03/18/19 09:42 Pepcid PO 20 mg QDAY NANCY Administration Furosemide 40 mg 03/17/19 10:00 03/18/19 09:42 Lasix PO 40 mg QDAY NANCY Administration Levofloxacin/Dextrose 750 mg in 150 mls @ 100 mls/hr 03/17/19 10:00 03/18/19 09:41 Levaquin 750mg/150ml IV 100 mls/hr Q24HR NANCY Administration Protocol Insulin Human Lispro 0 unit 03/17/19 07:30 03/18/19 08:31 Humalog SUB-Q Not Given ACHS [facility] Protocol Lorazepam 1 mg 03/16/19 19:10 03/17/19 22:16 Ativan PO 1 mg BID PRN Administration anxiety Losartan Potassium 50 mg 03/17/19 10:00 03/18/19 09:44 Cozaar PO 50 mg QDAY NANCY Administration Melatonin 10 mg 03/18/19 22:00 Melatonin PO QHS NANCY Methylprednisolone Sodium Succinate 60 mg 03/17/19 20:00 03/18/19 07:04 Solu-Medrol IV 60 mg Q8H NANCY Administration Nifedipine 60 mg 03/17/19 10:00 03/18/19 09:41 Procardia Xl PO 60 mg QDAY NANCY Administration Ondansetron HCl 4 mg 03/16/19 19:28 Zofran IV Q8H PRN Nausea And Vomiting Potassium Chloride 20 meq 03/18/19 10:37 03/18/19 09:42 K-Dur PO 20 meq MoThSa NANCY Administration Sodium Chloride 10 ml 03/16/19 22:00 03/18/19 09:48 Sodium Chloride Flush Syringe 10 Ml IV 10 ml BID NANCY Administration Sodium Chloride 10 ml 03/16/19 19:28 Sodium Chloride Flush Syringe 10 Ml IV PRN PRN LINE FLUSH Nutrition/Malnutrition Assess - Dietary Evaluation Nutrition/Malnutrition Findings: Nutrition Notes Start: 03/17/19 12:49 Freq: Status: Active Protocol: Document 03/17/19 12:49 LM (Rec: 03/17/19 12:57 LM [id number]) Nutrition Notes Need for Assessment generated from: graduate advisor,MST Initial or Follow up Assessment Current Diagnosis COPD,Diabetes,Hypertension, Heart Failure,Respiratory Failure Current Diet Cardiac Labs/Tests POC glu 156 Pertinent Medications Solumedrol Height 5 ft 5 in Weight 77.111 kg Usual Body Weight 77.27 kg [place] Body Weight (kg) 56.81 BMI 28.3 Intake Prior to Admission Good Weight Status Appropriate Subjective/Other Information RN screen for skin risk. Jay score is 18. No skin breakdown documented in chart. Pt stated she ate well at home and had no wt changes. Pt reports UBW of 170 lb (77kg). Pt did not eat breakfast this AM due to not liking the food . Food preferences taken. Burn Absent Trauma Absent GI Symptoms None Minimum of two criteria No #1 Nutrition Diagnosis Inadequate oral intake Etiology decreased appetite due to disliking hospital food As Evidenced by Signs and Symptoms pt eating 0% of breakfast Is patient on ventilator? No Is Patient Ambulatory and/or Out of Bed Yes REE-([facility]-ambulatory/OOB) [ [id number] [id number]] Calculation Used for Recommendations [facility] Additional Notes Protein needs: 77-92g (1-1.2 g /kg) Fluid: 1 ml/kcal or per MD Nutrition Intervention Change Diet Order: Cardiac/consistent CHO Goal #1 Meet at least 75% of energy and protein needs Anticipated Discharge Needs: consistent CHO/cardiac Follow-Up By: 03/21/19 Additional Comments F/U for PO intakes
--- NOTE | 2019-03-18 12:43 | Progress Note ---
Assessment and Plan Acute on chronic hypoxemic and hypercapnic respiratory failure. Acute chronic obstructive pulmonary disease exacerbation. Acute diastolic heart failure exacerbation. Obesity. Possible sleep apnea. Diabetes type 2. History of hypertension. Possible depression. Anxiety - continue with BIPAP qhs and prn - continue supplemental oxygen to keep O2 sats 88-90% - continue bronchodilators with pulmonary hygiene per RT (JACK/LABA) - VTE prophylaxis - continue systemic steroids with a quick taper (tapered to 40 mg IV q12h) - complete 5 day course of antibiotics (can transition to oral dosing) - Ambulate and increase activity as tolerated - continue accuchecks with glycemic control per SSI to keep blood glucose < 180 mg/dL - continue chronic home medications - Anxiety management / prn anxiolytics - Continue famotidine for GERD - continued tobacco abstinence encouraged - continue other care per attending / other consultants ... re-evaluate in am & prn Subjective Date of service: 03/18/19 Principal diagnosis: Ac on ch hypoxemic and hypercapnic resp failure; AE-COPD; Ac HFpEF; Obesity Interval history: Patient is seen today for: Acute on chronic hypoxemic and hypercapnic respiratory failure; Acute chronic obstructive pulmonary disease exacerbation; A cute diastolic heart failure exacerbation; Obesity; DM II; Possible sleep apnea. Seen and examined at bedside; 24hour events reviewed; nursing and respiratory care staff consulted; no adverse overnight events reported to me; resting peacefully in bed; on BIPAP therapy at time of my visit; still SOB; seen by cardiology and Psych teams and their input's appreciated Objective Vital Signs - 12hr 03/18/19 03/18/19 03/18/19 02:19 07:32 08:25 Temperature 98.5 F 122.0 F H Pulse Rate 87 63 Pulse Rate [ 96 H Anterior Bilateral Throughout] Respiratory 18 20 Rate Respiratory 24 Rate [Anterior Bilateral Throughout] Blood Pressure 120/62 132/54 O2 Sat by Pulse 95 98 92 Oximetry 03/18/19 03/18/19 08:38 10:00 Temperature 98.6 F Pulse Rate Pulse Rate [ Anterior Bilateral Throughout] Respiratory 20 Rate Respiratory Rate [Anterior Bilateral Throughout] Blood Pressure O2 Sat by Pulse 98 Oximetry Constitutional: alert, appears uncomfortable, other (elderly and sad looking AAF, normocephalic with mildly increased resp effort at rest on BIPAP) Eyes: non-icteric ENT: oropharynx moist, other (Mallampati 3) Neck: supple, no lymphadenopathy, no JVD, other (+ large neck circumference) Effort: mildly labored Ascultation: Bilateral: diminished breath sounds, rhonchi (scant basilar), other (prolonged exp phase) Percussion: Bilateral: not dull Cardiovascular: regular rate and rhythm Gastrointestinal: normoactive bowel sounds, soft, non-tender, non-distended Integumentary: normal Extremities: no cyanosis, pulses normal, no ischemia or petechiae, edema (trace) Neurologic: normal mental status, non-focal exam, pupils equal and round, CN II- XII normal, motor strength normal and Psychiatric: depressed CBC and BMP: 03/17/19 04:05 03/17/19 04:05 ABG, PT/INR, D-dimer: ABG POC ABG pH 7.373 (7.35-7.45) 03/16/19 20:16 POC ABG pCO2 53.3 (35-45) H 03/16/19 20:16 POC ABG pO2 58 (80-105) L 03/16/19 20:16 POC ABG HCO3 31.0 (22-26 mml/L) 03/16/19 20:16 POC ABG Total CO2 33 (23-27mmol/L) 03/16/19 20:16 POC ABG O2 Sat 88 03/16/19 20:16 Abnormal lab findings: Abnormal Labs 03/16/19 03/16/19 03/16/19 10:42 16:14 16:14 MCV MCH 25 L RDW 18.6 H [place] % (Auto) 12.7 H Eos % (Auto) 9.4 H Lymph # 1.0 L Eos # 0.5 H Seg Neuts % (Manual) Lymphocytes % (Manual) Lymphocytes # (Manual) POC ABG pCO2 POC ABG pO2 BUN Creatinine 0.6 L Glucose 164 H POC Glucose ALT < 5 L 03/16/19 03/17/19 03/17/19 20:16 04:05 04:05 MCV 78 L MCH 25 L RDW 18.4 H [place] % (Auto) Eos % (Auto) Lymph # Eos # Seg Neuts % (Manual) 79.0 H Lymphocytes % (Manual) 9.0 L Lymphocytes # (Manual) 0.5 L POC ABG pCO2 53.3 H POC ABG pO2 58 L BUN 19 H Creatinine 0.6 L Glucose 170 H POC Glucose ALT 5 L 03/17/19 03/17/19 03/17/19 07:20 11:34 16:42 MCV MCH RDW [place] % (Auto) Eos % (Auto) Lymph # Eos # Seg Neuts % (Manual) Lymphocytes % (Manual) Lymphocytes # (Manual) POC ABG pCO2 POC ABG pO2 BUN Creatinine Glucose POC Glucose 156 H 152 H 121 H ALT 03/17/19 03/18/19 03/18/19 21:01 07:18 11:48 MCV MCH RDW [place] % (Auto) Eos % (Auto) Lymph # Eos # Seg Neuts % (Manual) Lymphocytes % (Manual) Lymphocytes # (Manual) POC ABG pCO2 POC ABG pO2 BUN Creatinine Glucose POC Glucose 119 H 128 H 108 H ALT Chest x-ray: image reviewed Allied health notes reviewed: nursing
[2019-03-18] MEDS: ENOXAPARIN 40 MG/0.4 ML INJ SUB-Q SCH (21:27)
[2019-03-18] MEDS ORDERED: MELATONIN 5 MG TAB PO SCH (22:00)
[2019-03-19] MEDS: methylPREDNISolone Sod Succinate 125 MG/2 ML INJ IV SCH ×2 (04:06→12:21)
[2019-03-19] MEDS: INSULIN LISPRO 100 UNIT/ML SUB-Q SCH ×2 (08:05→12:20)
[2019-03-19] MEDS: BUDESONIDE 0.5 MG/2 ML NEBU IH SCH (08:50)
[2019-03-19] MEDS: ARFORMOTEROL 15 MCG/2 ML NEBU IH SCH (08:50)
[2019-03-19] MEDS: IPRATROPIUM/ALBUTEROL SULFATE 3 ML AMPUL.NEB IH SCH ×3 (08:50→17:14)
[2019-03-19] MEDS: FUROSEMIDE 40 MG TAB PO SCH (10:19)
[2019-03-19] MEDS: FAMOTIDINE 20 MG TAB PO SCH (10:19)
[2019-03-19] MEDS: NIFEdipine XL 60 MG TAB PO SCH (10:25)
[2019-03-19] MEDS: LOSARTAN 50 MG TAB PO SCH (10:25)
--- NOTE | 2019-03-19 11:14 | Progress Note ---
Subjective - Reason for Consult Consult date: 03/19/19 Reason for consult: Psychiatr Follow-up - Chief Complaint Chief complaint: "I slept last night" 69 y.o. AA female who presented to the ER for COPD exacerbation. Today the patient was calm and cooperative during the assessment. She stated that she slept last night. She stated that the Melatonin was effective. She denies SI/HI's and AVH's. She denies any side effects from her medication. Mental Status Exam - Vital signs Last Vital Signs Temp 97.8 F 03/19/19 07:22 Pulse 84 03/19/19 09:14 Resp 20 03/19/19 09:14 BP 142/79 03/19/19 07:22 Pulse Ox 94 03/19/19 08:52 - Exam Narrative exam: MSE: Appearance: calm, cooperative Behavior: regular eye contact Speech: regular rate and tone Mood: "tired" Affect: congruent to mood Thought Process: linear Thought Content: denies SI/HI's and AVH's Motor Activity: sitting up in bed Cognition: A/O x3 Insight: fair Judgment: fair Assessment and Plan Impression: Insomnia. Today the patient was calm during the assessment. Recommendation/Plan: Continue Melatonin 10 mg PO HS for sleep. Psy sign off. Staffed with Dr Bishop Rousseau.
[2019-03-19 11:56] VITALS: BP 137/70
--- NOTE | 2019-03-19 12:40 | Discharge Summary ---
Providers - Providers Date of Admission: 03/16/19 19:28 Attending physician: PEREZ HERZOG MD 03/17/19 00:16 Consult to Physician [CONS] Routine Comment: Consulting Provider: NIRMALA JAMESON Physician Instructions: Reason For Exam: COPD exacerbation 03/17/19 13:28 Consult to Cardiology [CONS] Routine Consulting Provider: HANNY ROY Reason For Exam: Diastolic CHF exacerbation; Also ? Pulm HTN Consult to Mental Health [CONS] Routine Reason For Exam: Depression Place consult to:: mental health team Notified:: MENTAL HEALTH TEAM DIRECTOR OF FIELD SERVICE Phone number called:: [phone] Was contact made?: No If yes, spoke with:: MENTAL HEALTH TEAM DIRECTOR OF FIELD SERVICE Time called:: 17:00 Comment:: WILL SEE PT. Primary care physician: ANIL DUTTON Hospitalization Condition: Stable Disposition: DC-30 STILL A PATIENT Exam - Constitutional Vitals: Temp Pulse Resp BP Pulse Ox 97.8 F 84 20 137/70 94 03/19/19 07:22 03/19/19 10:00 03/19/19 10:00 03/19/19 10:21 03/19/19 10:00 Plan Follow up with: ANIL DUTTON MD [Primary Care Provider] - 3-5 Days Prescriptions: predniSONE [Deltasone] 10 mg PO .TAPER #48 tab
--- NOTE | 2019-03-19 14:40 | Progress Note ---
Assessment and Plan Acute on chronic hypoxemic and hypercapnic respiratory failure. Acute chronic obstructive pulmonary disease exacerbation. Acute diastolic heart failure exacerbation. Obesity. Possible sleep apnea. Diabetes type 2. History of hypertension. Possible depression. Anxiety - continue supplemental oxygen to keep O2 sats 88-90% - continue bronchodilators with pulmonary hygiene per RT (JACK/LABA) - continue with BIPAP qhs and prn - continue systemic steroids with a quick taper (tapered to 40 mg IV q12h) - complete 5 day course of antibiotics (can transition to oral dosing) - Ambulate and increase activity as tolerated - continue GI & VTE prophylaxis - continue accuchecks with glycemic control per SSI to keep blood glucose < 180 mg/dL - continue chronic home medications - Anxiety management / prn anxiolytics - continued tobacco abstinence encouraged - continue other care per attending / other consultants ... re-evaluate in am & prn Subjective Date of service: 03/19/19 Principal diagnosis: Ac on ch hypoxemic and hypercapnic resp failure; AE-COPD; Ac HFpEF; Obesity Interval history: Patient is seen today for: Acute on chronic hypoxemic and hypercapnic respiratory failure; Acute chronic obstructive pulmonary disease exacerbation; Acute diastolic heart failure exacerbation; Obesity; DM II; Possible sleep apnea. Seen and examined at bedside; 24hour events reviewed; nursing and respiratory care staff consulted; no adverse overnight events reported to me; resting peacefully in bed; doing better overall; seen by Psych and cardiology; NO N/V/F/C; denies acute chest pains or palpitations Objective Vital Signs - 12hr 03/19/19 03/19/19 03/19/19 07:22 08:52 09:14 Temperature 97.8 F Pulse Rate 85 Pulse Rate [ 84 Anterior Bilateral Throughout] Pulse Rate [ Apical] Respiratory 20 Rate Respiratory 20 Rate [Anterior Bilateral Throughout] Blood Pressure 142/79 O2 Sat by Pulse 94 94 Oximetry 03/19/19 03/19/19 03/19/19 10:00 10:21 12:47 Temperature Pulse Rate 102 H Pulse Rate [ 55 L Anterior Bilateral Throughout] Pulse Rate [ 84 Apical] Respiratory 20 Rate Respiratory 20 Rate [Anterior Bilateral Throughout] Blood Pressure 137/70 O2 Sat by Pulse 94 Oximetry Constitutional: alert, appears uncomfortable, other (elderly and sad looking AAF, normocephalic with mildly increased resp effort at rest on BIPAP) Eyes: non-icteric ENT: oropharynx moist, other (Mallampati 3) Neck: supple, no lymphadenopathy, no JVD, other (+ large neck circumference) Effort: mildly labored Ascultation: Bilateral: diminished breath sounds, rhonchi (scant basilar), other (prolonged exp phase) Percussion: Bilateral: not dull Cardiovascular: regular rate and rhythm Gastrointestinal: normoactive bowel sounds, soft, non-tender, non-distended Integumentary: normal Extremities: no cyanosis, pulses normal, no ischemia or petechiae, edema (trace) Neurologic: normal mental status, non-focal exam, pupils equal and round, CN II- XII normal, motor strength normal and Psychiatric: mood appropriate, affect normal CBC and BMP: 03/17/19 04:05 03/17/19 04:05 ABG, PT/INR, D-dimer: ABG POC ABG pH 7.373 (7.35-7.45) 03/16/19 20:16 POC ABG pCO2 53.3 (35-45) H 03/16/19 20:16 POC ABG pO2 58 (80-105) L 03/16/19 20:16 POC ABG HCO3 31.0 (22-26 mml/L) 03/16/19 20:16 POC ABG Total CO2 33 (23-27mmol/L) 03/16/19 20:16 POC ABG O2 Sat 88 03/16/19 20:16 Abnormal lab findings: Abnormal Labs 03/16/19 03/16/19 03/16/19 10:42 16:14 16:14 MCV MCH 25 L RDW 18.6 H [place] % (Auto) 12.7 H Eos % (Auto) 9.4 H Lymph # 1.0 L Eos # 0.5 H [place] % (Manual) Lymphocytes % (Manual) Lymphocytes # (Manual) POC ABG pCO2 POC ABG pO2 BUN Creatinine 0.6 L Glucose 164 H POC Glucose ALT < 5 L 03/16/19 03/17/19 03/17/19 20:16 04:05 04:05 MCV 78 L MCH 25 L RDW 18.4 H [place] % (Auto) Eos % (Auto) Lymph # Eos # Seg Neuts % (Manual) 79.0 H Lymphocytes % (Manual) 9.0 L Lymphocytes # (Manual) 0.5 L POC ABG pCO2 53.3 H POC ABG pO2 58 L BUN 19 H Creatinine 0.6 L Glucose 170 H POC Glucose ALT 5 L 03/17/19 03/17/19 03/17/19 07:20 11:34 16:42 MCV MCH RDW [place] % (Auto) Eos % (Auto) Lymph # Eos # Seg Neuts % (Manual) Lymphocytes % (Manual) Lymphocytes # (Manual) POC ABG pCO2 POC ABG pO2 BUN Creatinine Glucose POC Glucose 156 H 152 H 121 H ALT 03/17/19 03/18/19 03/18/19 21:01 07:18 11:48 MCV MCH RDW [place] % (Auto) Eos % (Auto) Lymph # Eos # Seg Neuts % (Manual) Lymphocytes % (Manual) Lymphocytes # (Manual) POC ABG pCO2 POC ABG pO2 BUN Creatinine Glucose POC Glucose 119 H 128 H 108 H ALT 03/18/19 03/18/19 03/19/19 16:17 22:24 07:30 MCV MCH RDW [place] % (Auto) Eos % (Auto) Lymph # Eos # Seg Neuts % (Manual) Lymphocytes % (Manual) Lymphocytes # (Manual) POC ABG pCO2 POC ABG pO2 BUN Creatinine Glucose POC Glucose 127 H 123 H 145 H ALT 03/19/19 11:51 MCV MCH RDW [place] % (Auto) Eos % (Auto) Lymph # Eos # Seg Neuts % (Manual) Lymphocytes % (Manual) Lymphocytes # (Manual) POC ABG pCO2 POC ABG pO2 BUN Creatinine Glucose POC Glucose 170 H ALT Allied health notes reviewed: nursing
[2019-03-19] MEDS ORDERED: methylPREDNISolone Sod Succinate 40 MG/1 ML INJ IV SCH (15:00)
[2019-03-19] MEDS ORDERED: methylPREDNISolone Sod Succinate 125 MG/2 ML INJ IV SCH (15:00)
== END 2019-03-19 16:43 | disposition home health service (06) | DRG 291 ==
LOC: ED 15:51 → 2B-ACE 19:28
PROVIDERS: ADMIT Internal Medicine; ATTEND Internal Medicine
PROC: 4A033R1 Measurement of Arterial Saturation, Peripheral, Percutaneous Approach (ICD-10-PCS; principal; 2019-03-16)
PROC: 5A09357 Assistance with Respiratory Ventilation, Less than 24 Consecutive Hours, Continuous Positive Airway Pressure (ICD-10-PCS; 2019-03-16)
PROC: 5A09357 Assistance with Respiratory Ventilation, Less than 24 Consecutive Hours, Continuous Positive Airway Pressure (ICD-10-PCS; 2019-03-18)
DX: I11.0 Hypertensive heart disease with heart failure (principal); J96.21 Acute and chronic respiratory failure with hypoxia; J96.22 Acute and chronic respiratory failure with hypercapnia; J44.1 Chronic obstructive pulmonary disease with (acute) exacerbation; I50.33 Acute on chronic diastolic (congestive) heart failure; E66.9 Obesity, unspecified; E11.9 Type 2 diabetes mellitus without complications; F41.9 Anxiety disorder, unspecified; G47.00 Insomnia, unspecified; Z66 Do not resuscitate; Z68.28 Body mass index [BMI] 28.0-28.9, adult; Z82.49 Family history of ischemic heart disease and other diseases of the circulatory system; Z83.3 Family history of diabetes mellitus; Z90.710 Acquired absence of both cervix and uterus; Z79.899 Other long term (current) drug therapy
CPT/HCPCS: 36415; 71045; 80048; 80053; 80076; 82803; 82962; 83880; 84484; 85007; 85025; 87040; 93005; 93010; 94640; 94644; 94660; 94760; G0378; J1650; J1815; J1940; J1956; J2405; J2920; J2930

== ENCOUNTER 2019-12-20 15:59 | Emergency (ER) | payer MEDICARE ==
--- NOTE | 2019-12-20 17:36 | Cat Scan Report ---
CT HEAD WITHOUT CONTRAST INDICATION / CLINICAL INFORMATION: SEVERE HEADACHE. TECHNIQUE: All CT scans at this location are performed using CT dose reduction for ALARA by means of automated e xposure control. COMPARISON: Head CT 05/02/2009 FINDINGS: HEMORRHAGE: No evidence of intracranial hemorrhage or extra-axial fluid collection. EXTRA-AXIAL SPACES: Cortical sulci, sylvian fissures and basilar cisterns have an unremarkable appear ance. VENTRICULAR SYSTEM: The ventricular system is of normal size and configuration. CEREBRAL PARENCHYMA: No areas of abnormal brain parenchymal attenuation are identified. There is no i ndication of recent infarction. MIDLINE SHIFT OR HERNIATION: There is no mass effect. CEREBELLUM / BRAINSTEM: Brainstem and cerebellum have an unremarkable appearance. MIDLINE STRUCTURES:No abnormalities of the pituitary gland or pineal region are identified. INTRACRANIAL VESSELS:No abnormalities are identified on this noncontrast head CT. ORBITS: visualized portions of the orbits have an unremarkable appearance. SOFT TISSUES of HEAD: No significant abnormality. CALVARIUM: Evaluation of bone windows reveals no abnormalities. PARANASAL SINUSES / MASTOID AIR CELLS: Paranasal sinuses are free from inflammatory mucosal disease. Mastoid air cells are normally pneumatized. IMPRESSION: 1. Normal head CT without contrast. No interval change. Signer Name: Sachin Flores MD Signed: 12/20/2019 5:32 PM Workstation Name: [id number]
[2019-12-20 20:45] VITALS: BP 134/82
--- NOTE | 2019-12-20 21:06 | Emergency Department Report ---
ED Headache HPI - General Chief Complaint: Headache Stated Complaint: HEADACHE Time Seen by Provider: 12/20/19 20:37 - History of Present Illness Initial Comments: 69-year-old female with history of hypertension, COPD, chronic headaches, presents to ED with complaint of headache. Patient states she has been having daily headaches x3 months. Patient states she does not wake up with a headache, but gradually the headache comes on throughout the day. She reports headache usually starts above the right eye and then generalizes to the entire right side of her head. She reports some nausea, no vomiting. She denies dizziness, blurred vision, neck pain, fever, numbness, extremity weakness. Patient states she was seen by her PCP and given Fioricet. Patient states she gets mild relief from the Fioricet, however when she drinks coffee with it that improves her pain even more. Currently, states her headache has improved from when she initially checked into the ER, with a pain level of 4 out of 10 at this time. Patient states she has never been to a neurologist. Timing/Duration: other (3 months) Quality: moderate, throbbing Head Injury Location: other (right sided) Modifying Factors: improves with: medication Associated Symptoms: facial pain, nausea/vomiting. denies: confusion, fever/chi lls, stiff neck, vision changes, weakness Allergies/Adverse Reactions: Allergies No Known Allergies Allergy (Unverified 10/29/14 10:06) Home Medications: Ambulatory Orders Furosemide [Lasix TAB] 40 mg PO QDAY #30 tablet 11/29/17 Potassium Chloride [Klor-Con M20] 20 meq PO 3XW 08/29/18 metFORMIN [Glucophage] 2 tab PO BID 08/29/18 NIFEdipine XL [Procardia Xl] 60 mg PO QDAY 09/30/18 LORazepam [Ativan] 1 mg PO BID PRN #30 tablet 12/23/18 Irbesartan 150 mg PO QDAY 03/16/19 Budesonide/Formoterol Fumarate [Symbicort 160-4.5 Mcg Inhaler] 1 puff IH BID 03/18/19 Ipratropium [Atrovent NEB] 0.5 mg IH Q4HR 03/18/19 Tiotropium [place] [Spiriva Respimat] 1 puff IH DAILY 03/18/19 predniSONE [Deltasone] 10 mg PO .TAPER #48 tab 03/18/19 Butalb/Acetamin/Caff 50-325-40 [Fioricet] 1 tab PO Q6HR PRN #30 tab 12/20/19 ED Review of Systems ROS: Stated complaint: HEADACHE Other details as noted in HPI Comment: All other systems reviewed and negative Constitutional: denies: fever Eyes: denies: eye discharge, vision change Gastrointestinal: nausea. denies: vomiting Neurological: headache. denies: weakness, numbness, paresthesias, vertigo ED Past Medical Hx - Past Medical History Previous Medical History?: Yes Hx Hypertension: Yes Hx Diabetes: Yes Hx COPD: Yes (3L AT HOME) Hx HIV: No - Surgical History Additional Surgical History: hysterectomy - Social History Smoking Status: Never Smoker Substance Use Type: None - Medications Home Medications: Home Medications Medication Instructions Recorded Confirmed Last Taken Type Furosemide [Lasix TAB] 40 mg PO QDAY #30 tablet 11/29/17 03/16/19 03/15/19 Rx Potassium Chloride [Klor-Con M20] 20 meq PO 3XW 08/29/18 03/16/19 03/15/19 History metFORMIN [Glucophage] 2 tab PO BID 08/29/18 03/16/19 03/15/19 History NIFEdipine XL [Procardia Xl] 60 mg PO QDAY 09/30/18 03/16/19 03/15/19 History LORazepam [Ativan] 1 mg PO BID PRN #30 tablet 12/23/18 03/16/19 03/15/19 Rx Irbesartan 150 mg PO QDAY 03/16/19 03/16/19 03/15/19 History Budesonide/Formoterol Fumarate 1 puff IH BID 03/18/19 03/18/19 Unknown History [Symbicort 160-4.5 Mcg Inhaler] Ipratropium [Atrovent NEB] 0.5 mg IH Q4HR 03/18/19 03/18/19 Unknown History Tiotropium [place] [Spiriva 1 puff IH DAILY 03/18/19 03/18/19 Unknown History Respimat] predniSONE [Deltasone] 10 mg PO .TAPER #48 tab 03/18/19 Unknown Rx Butalb/Acetamin/Caff 50-325-40 1 tab PO Q6HR PRN #30 tab 12/20/19 Unknown Rx [Fioricet] ED Physical Exam - General Limitations: No Limitations General appearance: alert, in no apparent distress - Head Head exam: Present: atraumatic, normocephalic, other (no temporal tenderness) - Eye Eye exam: Present: normal appearance, EOMI - ENT ENT exam: Present: mucous membranes moist - Neck Neck exam: Present: normal inspection, full ROM. Absent: meningismus - Respiratory Respiratory exam: Present: normal lung sounds bilaterally. Absent: respiratory distress - Cardiovascular Cardiovascular Exam: Present: regular rate, normal rhythm - GI/Abdominal GI/Abdominal exam: Present: soft. Absent: distended, tenderness - Extremities Exam Extremities exam: Present: normal inspection - Neurological Exam Neurological exam: Present: alert, oriented X3, CN II-XII intact, normal gait. Absent: motor sensory deficit - Psychiatric Psychiatric exam: Present: normal affect, normal mood - Skin Skin exam: Present: warm, dry, intact, normal color ED Course Vital Signs 12/20/19 12/20/19 12/20/19 16:17 20:27 20:29 Temperature 97.8 F Pulse Rate 83 Respiratory 16 22 Rate Blood Pressure 175/80 O2 Sat by Pulse 97 94 96 Oximetry 12/20/19 20:30 Temperature 97.6 F Pulse Rate 75 Respiratory Rate Blood Pressure 134/82 O2 Sat by Pulse Oximetry ED Medical Decision Making - Radiology Data Radiology results: report reviewed, image reviewed - Medical Decision Making 69-year-old female with chronic headaches presents to ED with daily headaches x3 months. Patient reports some relief with Fioricet and additional caffeine. Patient has no neuro deficits on exam. CT head is negative. Blood pressure is normal. Patient states pain is only a 4 out of 10 currently, however she is requesting additional Fioricet as she ran out at home. Patient will be discharged and given information for neurology follow-up. - Differential Diagnosis Migraine headache, cluster headache, intracranial abnormality Critical care attestation.: If time is entered above; I have spent that time in minutes in the direct care of this critically ill patient, excluding procedure time. ED Disposition Clinical Impression: Chronic headache Disposition: DC-01 TO HOME OR SELFCARE Is pt being admited?: No Condition: Stable Instructions: Cluster Headache (ED), Migraine Headache (ED), Tension Headache (ED), Trigeminal Neuralgia (ED) Prescriptions: Butalb/Acetamin/Caff 50-325-40 [Fioricet] 1 tab PO Q6HR PRN #30 tab PRN Reason: Headache Referrals: ANIL DUTTON MD [Primary Care Provider] - 3-5 Days CONOR SANTIAGO MD [Referring] - 3-5 Days PASTORA DONAHUE MD [Staff Physician] - 3-5 Days LINDA ROMERO MD [Staff Physician] - 3-5 Days CHRIS ALVARADO MD [Staff Physician] - 3-5 Days Forms: Accompanied Note Time of Disposition: 21:13
[2019-12-20] MEDS ORDERED: BUTALB/ACETAMINOPHEN/CAFFEINE TAB PO ONE (21:37)
== END 2019-12-20 21:46 | disposition home or self-care (01) ==
LOC: ED 15:59
DX: G89.29 Other chronic pain (principal); R51 Headache; I10 Essential (primary) hypertension; E11.9 Type 2 diabetes mellitus without complications; J44.9 Chronic obstructive pulmonary disease, unspecified; Z90.710 Acquired absence of both cervix and uterus; Z79.899 Other long term (current) drug therapy
CPT/HCPCS: 70450